=== PATIENT | female | born 1930 | race Caucasian/White ===

== ENCOUNTER → 2016-10-17 | Outpatient (CLI) | payer OTHER ==
[~2016-10-17] MED LIST: ALBU18002 INH; AMLO-110 PO; ATOR10TA88 PO; AZIT250T5 PO; CMD3 PO; LSN20 PO; PANT40TA PO; PRED20TA2 PO; TORS20TA2 PO; WARF3TAB6 PO
[2016-10-17 12:06] LABS: HEMATOCRIT 35.6 % (37-47); MEAN CELL VOLUME 81.5 fL (80-100); MEAN CORPUSCULAR HEMOGLOBIN 26.8 pg (25-34); MEAN CORPUSCULAR HGB CONC 32.9 g/dl (32-36); MEAN PLATELET VOLUME 10.1 fL (7.4-10.4); PLATELET COUNT 338 K/uL (130-400); RED BLOOD COUNT 4.37 M/uL (4.2-5.4); WHITE BLOOD COUNT 6.48 K/uL (4.8-10.8)
[2016-10-17 12:35] LABS: ALT/SGPT 19 U/L (12-78); AST/SGOT 17 U/L (15-37); BLOOD UREA NITROGEN 27 mg/dl (7-18); BUN/CREATININE RATIO 15.2 (10-20); CALCIUM 9.5 mg/dl (8.5-10.1); CARBON DIOXIDE 25 mmol/L (21-32); CHLORIDE 107 mmol/L (98-107); GLUCOSE 84 mg/dl (70-99); POTASSIUM 3.5 mmol/L (3.5-5.1); SODIUM 142 mmol/L (136-145)
[2016-10-17 12:36] LABS: ALB/GLOB RATIO 0.8 (0.9-2); ALKALINE PHOSPHATASE 95 U/L (45-117)
[2016-10-17 13:45] LABS: MANUAL MICROSCOPIC REQUIRED? NO; REVIEW REQ? NO; URINE APPEARANCE CLEAR (CLEAR); URINE BILIRUBIN NEG (NEG); URINE COLOR YELLOW; URINE NITRITE NEG (NEG); URINE SPECIFIC GRAVITY 1.016 (1.000-1.030); UROBILINOGEN NEG (NEG)
[2016-10-17 14:46] LABS: URINE PROTIEN/CREAT RATIO 0.5 (0-0.2); URINE TOTAL PROTEIN 87.3 mg/dl (0-11.9)
== END | disposition home or self-care (01) ==
LOC: C.LAB 10:58
PROVIDERS: ATTEND Internal Medicine Nephrology
DX: I12.9 Hypertensive chronic kidney disease with stage 1 through stage 4 chronic kidney disease, or unspecified chronic kidney disease (principal); N18.4 Chronic kidney disease, stage 4 (severe); R80.9 Proteinuria, unspecified; E55.9 Vitamin D deficiency, unspecified; I48.0 Paroxysmal atrial fibrillation; R73.09 Other abnormal glucose; Z79.01 Long term (current) use of anticoagulants

== ENCOUNTER → 2016-10-24 | Outpatient (CLI) | payer OTHER | END | disposition home or self-care (01) | LOC: C.LAB 10:49 | PROVIDERS: ATTEND Internal Medicine Nephrology | DX: I12.9 Hypertensive chronic kidney disease with stage 1 through stage 4 chronic kidney disease, or unspecified chronic kidney disease (principal); N18.4 Chronic kidney disease, stage 4 (severe); R80.9 Proteinuria, unspecified; E55.9 Vitamin D deficiency, unspecified ==

== ENCOUNTER → 2016-11-15 | Outpatient (CLI) | payer OTHER ==
--- NOTE | 2016-11-15 15:33 | DIAGNOSTIC IMAGING REPORT ---
CHEST 2 VIEWS ROUTINE CLINICAL HISTORY: Acute bronchitis with bronchospasm. Shortness of breath. COMPARISON STUDY: 05/29/2016 FINDINGS: The heart is mildly enlarged. There is a retrocardiac opacity consistent with a hiatal hernia. There is evidence for underlying emphysema. There is no lobar consolidation. There is a very small right pleural effusion with right basilar atelectasis. Aeration the lung bases has markedly improved when compared the preceding study[. There is extensive aortic calcification with ectasia of the ascending thoracic aorta IMPRESSION: Small right pleural effusion with minor right basilar atelectasis. Hiatal hernia. Electronically signed by: Hugo Mcgregor M.D. 11/15/2016 3:32 PM Dictated Date/Time: 11/15/2016 3:31 PM
== END | disposition home or self-care (01) ==
LOC: C.RADBC 12:25
PROVIDERS: ATTEND Physician Assistant
DX: J20.9 Acute bronchitis, unspecified (principal); R06.02 Shortness of breath; K44.9 Diaphragmatic hernia without obstruction or gangrene; I48.0 Paroxysmal atrial fibrillation; Z79.01 Long term (current) use of anticoagulants; R73.09 Other abnormal glucose; N18.4 Chronic kidney disease, stage 4 (severe)

== ENCOUNTER → 2016-11-19 | Outpatient (CLI) | payer OTHER ==
[2016-11-19 17:41] LABS: BASO % 0.4 %; BASO ABS # 0.03 K/uL (0-0.2); COMPLETE YES; EOS % 7.8 %; HEMATOCRIT 34.8 % (37-47); IG% 0.1 %; LYMPH % 23.8 %; MEAN CELL VOLUME 78.9 fL (80-100); MEAN CORPUSCULAR HEMOGLOBIN 25.6 pg (25-34); MEAN CORPUSCULAR HGB CONC 32.5 g/dl (32-36); MONO % 13.2 %; NEUT % 54.7 %; PLATELET COUNT 395 K/uL (130-400); RED BLOOD COUNT 4.41 M/uL (4.2-5.4); WHITE BLOOD COUNT 7.97 K/uL (4.8-10.8)
[2016-11-19 17:44] LABS: BLOOD UREA NITROGEN 31 mg/dl (7-18); BUN/CREATININE RATIO 14.3 (10-20); CARBON DIOXIDE 26 mmol/L (21-32); CHLORIDE 108 mmol/L (98-107); GLUCOSE 84 mg/dl (70-99); POTASSIUM 3.7 mmol/L (3.5-5.1); SODIUM 141 mmol/L (136-145)
== END | disposition home or self-care (01) ==
LOC: C.LABPBG 13:41
PROVIDERS: ATTEND Internal Medicine
DX: I10 Essential (primary) hypertension (principal)

== ENCOUNTER → 2016-11-22 | Outpatient (CLI) | payer OTHER ==
--- NOTE | 2016-11-22 11:50 | DIAGNOSTIC IMAGING REPORT ---
CT SCAN OF THE CHEST WITHOUT IV CONTRAST CLINICAL HISTORY: Dyspnea. COMPARISON STUDY: Chest x-ray dated 11/15/2016. TECHNIQUE: CT scan of the thorax was performed from the thoracic inlet to the upper abdomen. Images are reviewed in the axial, sagittal, and coronal planes. IV contrast was not administered for this examination as per the referring clinician. CT DOSE: 182.62 mGycm FINDINGS: Thyroid: Imaged portions of the thyroid gland are normal in size and attenuation. Thoracic aorta: There is advanced atherosclerotic calcification of the thoracic aorta. There is mild aneurysmal dilatation of the ascending thoracic aorta which measures up to 4.1 cm in diameter. The remainder of the thoracic aorta is normal in caliber. The arch demonstrates standard 3-vessel anatomy. Heart: The heart is enlarged and there is trace pericardial fluid. The coronary arteries are densely calcified. The pulmonary trunk is mild dilated, measuring 3.2 cm in transverse diameter. This suggests pulmonary artery hypertension. Lungs and pleural spaces: Mild emphysematous change is observed. There are trace pleural effusions. Linear atelectasis versus scarring is present at both lung bases. There is no airspace consolidation typical for pneumonia. The trachea and central airways are clear. Mediastinum: There is no mediastinal lymphadenopathy. Bree: Clear. Axillae: There is no axillary lymphadenopathy. Upper abdomen: There is a large hiatal hernia, with over half of the stomach located in the thoracic cavity. The partially imaged kidneys are atrophic, right asymmetrically greater than left. Calcified gallstones are partially visualized. Skeletal structures: The skeletal structures are osteopenic. There is a moderate compression deformity of T3. Mild compression deformities are noted involving T4, T6, T7, and T12. There is mild degenerative change and hyperkyphosis of the thoracic spine. No lytic or blastic bony lesions are seen. IMPRESSION: 1. Mild emphysema. 2. Trace pleural effusions. There is no airspace consolidation typical for pneumonia. 3. Cardiomegaly with evidence of pulmonary artery hypertension. 4. Large hiatal hernia with over half of the stomach located in the thoracic cavity. 5. There is advanced atherosclerotic calcification of the thoracic aorta. There is mild interstitial dilatation of the ascending thoracic aorta which measures up to 4.1 cm in diameter. 6. Cholelithiasis. 7. Additional findings as above. Electronically signed by: Fidencio Miller M.D. 11/22/2016 11:49 AM Dictated Date/Time: 11/22/2016 11:39 AM
== END | disposition home or self-care (01) ==
LOC: C.CTS 11:01
PROVIDERS: ATTEND Internal Medicine
DX: R06.00 Dyspnea, unspecified (principal); I51.7 Cardiomegaly; K44.9 Diaphragmatic hernia without obstruction or gangrene; I70.0 Atherosclerosis of aorta; K80.20 Calculus of gallbladder without cholecystitis without obstruction; I48.0 Paroxysmal atrial fibrillation; Z79.01 Long term (current) use of anticoagulants; R73.09 Other abnormal glucose; N18.4 Chronic kidney disease, stage 4 (severe); D64.9 Anemia, unspecified

== ENCOUNTER 2017-02-15 14:34 | Emergency (ER) | payer OTHER ==
[~2017-02-15] VITALS: Ht 154.9 cm; Wt 57.7 kg
[2017-02-15 14:43] VITALS: TEMP 36.6; Ht 154.9 cm; Wt 57.7 kg
[2017-02-15] MEDS ORDERED: METHYLPREDNISOLONE 125 MG VIAL IV STA (15:04)
--- NOTE | 2017-02-15 15:08 | EMERGENCY ROOM VISIT NOTE ---
History Report prepared by Tye: Ce Turk Under the Supervision of: Dr. Juanjo Lock M.D. First contact with patient: 14:48 Chief Complaint: SHORTNESS OF BREATH Stated Complaint: SOB, COUGH History of Present Illness The patient is a 86 year old female who presents to the Emergency Room with complaints of worsening shortness of breath beginning a few days prior to arrival. The patient states that the shortness of breath began 2 weeks ago however it has only worsened within the past few days. She notes trouble breathing. The patient has an inhaler that she uses at home every 4-6 hours as needed. She notes that she normally does not need the inhaler but last night and today she has been using it. The patient is currently on Warfarin. She has a history of chronic bronchitis, CHF, hiatal hernia and chronic kidney disease stage 4. Review of Systems See HPI for pertinent positives & negatives. A total of 10 systems reviewed and were otherwise negative. Past Medical & Surgical Medical Problems: (1) CHF (congestive heart failure) (2) Chronic bronchitis (3) kidney disease stage 4 Surgical Problems: (1) H/O: hysterectomy Family History Cancer Diabetes mellitus Heart disease Hypertension Kidney disease Social History Smoking Status: Never Smoker Smokeless Tobacco Use: No Alcohol Use: none Marital Status: Housing Status: lives with significant other Occupation Status: retired Current/Historical Medications Scheduled Amlodipine (Norvasc), 5 MG PO QAM Atorvastatin (Lipitor), 10 MG PO QPM Azithromycin (Zithromax), 250 MG PO DAILY Lisinopril (Lisinopril), 20 MG PO BID Prednisone (Prednisone Tab), 0 PO DAILY Torsemide (Demadex), 20 MG PO QAM Warfarin Sod (Jantoven), 3 MG PO 6XWK Warfarin Sod (Coumadin), 4.5 MG PO THURSDAYS Scheduled PRN Albuterol Sulfate (Proair Respiclick), 1-2 PUFFS INH 4-6 HOURS PRN for SOB/ Wheezing Pantoprazole (Protonix), 40 MG PO QAM PRN for Heartburn Allergies Coded Allergies: Aspirin (Verified Allergy, Unknown, 09/30/09) Penicillins (Verified Allergy, Unknown, 09/30/09) Physical Exam Vital Signs Date Time Temp Pulse Resp B/P (MAP) Pulse Ox O2 Delivery O2 Flow Rate FiO2 02/15/17 17:54 80 17 140/68 96 02/15/17 16:46 110 16 143/77 95 Room Air 02/15/17 16:04 96 Room Air 02/15/17 16:01 83 02/15/17 15:55 96 Room Air 02/15/17 15:25 100 20 96 Room Air 02/15/17 14:43 36.6 86 28 163/74 99 Room Air Physical Exam GENERAL: Patient is a healthy-appearing well-nourished female HEAD: Normocephalic atraumatic EYES: Ocular movements intact pupils equal and react to light OROPHARYNX mucous membranes are moist no exudates present no erythema or edema present NECK: Supple no nuchal rigidity CHEST: Good equal expansion LUNGS: Wheezing in all lung unger, appears extremely tachypneic CARDIAC: Normal S1 and S2 ABDOMEN: Soft nontender no guarding BACK: No CVA tenderness EXTREMITIES: No pain upon palpation normal muscle strength in all groups no clubbing cyanosis or edema NEURO: Patient is following commands and answering questions appropriately. Alert and oriented x3 Cranial Nerves 2-12 grossly intact Medical Decision & Procedures ER Provider Diagnostic Interpretation: X-ray results as stated below per interpretation by me and the radiologist: SINGLE VIEW CHEST CLINICAL HISTORY: Dyspnea. FINDINGS: An AP, portable, upright chest radiograph is compared to study dated 11/15/2016 and correlated with chest CT dated 11/22/2016. The examination is degraded by portable technique and patient rotation. The heart is enlarged and there is atherosclerotic calcification of the thoracic aorta. The pulmonary vasculature is noncongested. A large hiatal hernia is again noted. Chronic interstitial thickening is similar to previous. No airspace consolidation, large pleural effusion, or pneumothorax is seen. The skeletal structures are osteopenic. The bony thorax is grossly intact. IMPRESSION: Cardiomegaly with no acute cardiopulmonary abnormality. Electronically signed by: Fidencio Miller M.D. 02/15/2017 3:28 PM Dictated Date/Time: 02/15/2017 3:26 PM Laboratory Results 02/15/17 15:30 Red Blood Count 5.10, Mean Corpuscular Volume 75.5, Mean Corpuscular Hemoglobin 24.3, Mean Corpuscular Hemoglobin Concent 32.2, Mean Platelet Volume 9.9, Neutrophils (%) (Auto) 61.3, Lymphocytes (%) (Auto) 20.2, Monocytes (%) (Auto) 9.8, Eosinophils (%) (Auto) 8.1, Basophils (%) (Auto) 0.5, Neutrophils # (Auto) 4.46, Lymphocytes # (Auto) 1.47, Monocytes # (Auto) 0.71, Eosinophils # (Auto) 0.59, Basophils # (Auto) 0.04 02/15/17 15:30 Test 02/15/17 15:30 02/15/17 16:00 White Blood Count 7.28 K/uL (4.8-10.8) Red Blood Count 5.10 M/uL (4.2-5.4) Hemoglobin 12.4 g/dL (12.0-16.0) Hematocrit 38.5 % (37-47) Mean Corpuscular Volume 75.5 fL (80-100) Mean Corpuscular Hemoglobin 24.3 pg (25-34) Mean Corpuscular Hemoglobin Concent 32.2 g/dl (32-36) Platelet Count 336 K/uL (130-400) Mean Platelet Volume 9.9 fL (7.4-10.4) Neutrophils (%) (Auto) 61.3 % Lymphocytes (%) (Auto) 20.2 % Monocytes (%) (Auto) 9.8 % Eosinophils (%) (Auto) 8.1 % Basophils (%) (Auto) 0.5 % Neutrophils # (Auto) 4.46 K/uL (1.4-6.5) Lymphocytes # (Auto) 1.47 K/uL (1.2-3.4) Monocytes # (Auto) 0.71 K/uL (0.11-0.59) Eosinophils # (Auto) 0.59 K/uL (0-0.5) Basophils # (Auto) 0.04 K/uL (0-0.2) RDW Standard Deviation 48.4 fL (36.4-46.3) RDW Coefficient of Variation 17.3 % (11.5-14.5) Immature Granulocyte % (Auto) 0.1 % Immature Granulocyte # (Auto) 0.01 K/uL (0.00-0.02) Prothrombin Time 23.5 SECONDS (9.0-12.0) Prothromb Time International Ratio 2.1 (0.9-1.1) Anion Gap 12.0 mmol/L (3-11) Est Creatinine Clear Calc Drug Dose 17.0 ml/min Estimated GFR () 27.0 Estimated GFR (Non- 23.3 BUN/Creatinine Ratio 12.5 (10-20) Calcium Level 10.2 mg/dl (8.5-10.1) Magnesium Level 2.0 mg/dl (1.8-2.4) Total Bilirubin 0.6 mg/dl (0.2-1) Aspartate Amino Transf (AST/SGOT) 25 U/L (15-37) Alanine Aminotransferase (ALT/SGPT) 28 U/L (12-78) Alkaline Phosphatase 116 U/L (45-117) Total Creatine Kinase 76 U/L (26-192) Creatine Kinase MB 1.0 ng/ml (0.5-3.6) Creatine Kinase MB Ratio 1.3 (0-3.0) Troponin I < 0.015 ng/ml (0-0.045) Total Protein 7.8 gm/dl (6.4-8.2) Albumin 3.7 gm/dl (3.4-5.0) Globulin 4.1 gm/dl (2.5-4.0) Albumin/Globulin Ratio 0.9 (0.9-2) Urine Color YELLOW Urine Appearance CLEAR (CLEAR) Urine pH 5.0 (4.5-7.5) Urine Specific [place] 1.011 (1.000-1.030) Urine Protein TRACE (NEG) Urine Glucose (UA) NEG (NEG) Urine Ketones NEG (NEG) Urine Occult Blood NEG (NEG) Urine Nitrite NEG (NEG) Urine Bilirubin NEG (NEG) Urine Urobilinogen NEG (NEG) Urine Leukocyte Esterase NEG (NEG) Urine WBC (Auto) 1-5 /hpf (0-5) Urine RBC (Auto) 0-4 /hpf (0-4) Urine Hyaline Casts (Auto) 1-5 /lpf (0-5) Urine Epithelial Cells (Auto) 0-5 /lpf (0-5) Urine Bacteria (Auto) NEG (NEG) Labs reviewed by ED physician. Medications Administered Medications (Trade) Dose Ordered Sig/Jenny Route Start Time Stop Time Status Last Admin Dose Admin Albuterol/ Ipratropium (Duoneb) 12 ml ONE ONCE INH 02/15/17 15:15 02/15/17 15:16 DC 02/15/17 15:15 12 ML Methylprednisolone Sodium Succinate (Solu-Medrol IV) 60 mg NOW STAT IV 02/15/17 15:04 02/15/17 15:05 DC 02/15/17 15:54 60 MG Azithromycin (Zithromax Tab) 500 mg NOW STAT PO 02/15/17 15:41 02/15/17 15:42 DC 02/15/17 15:54 500 MG Magnesium Sulfate (Magnesium Sulfate) 1 gm NOW STAT IV 02/15/17 15:59 02/15/17 16:01 DC 02/15/17 16:36 1 GM Potassium Chloride (Neela Ciel Elix) 80 meq NOW STAT PO 02/15/17 15:59 02/15/17 16:01 DC 02/15/17 16:34 80 MEQ Sodium Chloride 500 ml @ 999 mls/hr Q31M STAT IV 02/15/17 16:54 02/15/17 17:24 DC 02/15/17 16:54 999 MLS/HR ECG Indication: SOB/dyspnea Rate (beats per minute): 98 Rhythm: atrial fibrillation Findings: no acute ischemic change, other (old septal infarct) ED Course 1501: Past medical records reviewed. The patient was evaluated in room B3. A complete history and physical examination was performed. 1504: Solu-Medrol Iv 60 mg IV. 1515: Duoneb 12 ml INH. 1541: Zithromax Tab 500 mg PO. 1559: Neela Ciel Elix 80 meq PO, Magnesium Sulfate 1 gm IV. 1656: Upon reexamination the patient is hemodynamically stable. I discussed results and treatment plan with the patient. She verbalizes agreement and understanding. The patient is ready for discharge. Medical Decision Differential diagnosis: Etiologies such as infections, reactive airway disease, pneumonia, pneumothorax , COPD, CHF, cardiac ischemia, pulmonary embolism, musculoskeletal, gastrointestinal, as well as others were entertained. Medication Reconciliation: I attest that I have personally reviewed the patient' s current medication list. Blood Pressure Screening: Patient was found to have an elevated blood pressure and was referred to their primary care doctor for recheck and further treatment This is an 86-year-old female who presents emergency department complaining of shortness of breath and wheezing. The patient was given an hour-long breathing treatment along with Solu-Medrol. Repeat examination revealed much improvement the patient's symptoms. The patient was also started on azithromycin. At this point the patient reported she was feeling much better and was requesting to be discharged. She was ambulated by nursing staff prior to discharge. I do believe she is well enough to be discharged home. She was started on prednisone. Patient was in agreement with the treatment plan. Impression Primary Impression: Acute bronchitis Scribe Attestation The scribe's documentation has been prepared under my direction and personally reviewed by me in its entirety. I confirm that the note above accurately reflects all work, treatment, procedures, and medical decision making performed by me. Departure Information Dispostion Home / Self-Care Prescriptions Prednisone (Prednisone Tab) 20 Mg Tab 0 PO DAILY, #7 TAB 2 TABS DAILY FOR 2 DAYS, THEN 1 TAB DAILY FOR 2 DAYS, THEN 1/2 TAB DAILY FOR 2 DAYS. Prov: Juanjo Lock MD 02/15/17 Azithromycin (ZITHROMAX) 250 Mg Tab 250 MG PO DAILY, #4 TAB Prov: Juanjo Lock MD 02/15/17 Referrals Chuck Byrne M.D. (PCP) Forms HOME CARE DOCUMENTATION FORM, IMPORTANT VISIT INFORMATION, School Instructions, Work Instructions Patient Instructions Bronchitis Acute, Hypertension Dc, My [facility] Additional Instructions Use inhaler twice every 6 hours You were found to have an elevated blood pressure today (>120 sytolic or >90 diastolic). Per medicare guidelines, you need to follow up with this blood pressure screening with your Primary Care Physician (PCP). For a new PCP call [phone]. You have been examined and treated today on an emergency basis only. This is not a substitute for, or an effort to provide, complete comprehensive medical care. It is impossible to recognize and treat all injuries or illnesses in a single emergency department visit. It is therefore important that you follow up closely with Dr Byrne. Call as soon as possible for an appointment. Thank you for your time and consideration. I look forward to speaking with you again soon. Please don't hesitate to call us if you have any questions. Problem Qualifiers Primary Impression: Acute bronchitis Bronchitis organism: unspecified organism Qualified Codes: J20.9 - Acute bronchitis, unspecified
[2017-02-15] MEDS ORDERED: ALBUT/IPRATROP 3MG/0.5MG NEB 3 ML VIAL INH ONE (15:15)
[2017-02-15] MEDS ORDERED: TORS20TA2 PO (15:22)
[2017-02-15] MEDS ORDERED: CMD3 PO (15:22)
[2017-02-15] MEDS ORDERED: ALBU18002 INH (15:22)
[2017-02-15] MEDS ORDERED: WARF3TAB6 PO (15:22)
[2017-02-15] MEDS ORDERED: AMLO-110 PO (15:22)
[2017-02-15] MEDS ORDERED: LSN20 PO (15:22)
[2017-02-15] MEDS ORDERED: PANT40TA PO (15:22)
[2017-02-15] MEDS ORDERED: ATOR10TA82 PO (15:22)
[2017-02-15 15:25] VITALS: PULSE 100; O2SAT 96
--- NOTE | 2017-02-15 15:30 | DIAGNOSTIC IMAGING REPORT ---
SINGLE VIEW CHEST CLINICAL HISTORY: Dyspnea. FINDINGS: An AP, portable, upright chest radiograph is compared to study dated 11/15/2016 and correlated with chest CT dated 11/22/2016. The examination is degraded by portable technique and patient rotation. The heart is enlarged and there is atherosclerotic calcification of the thoracic aorta. The pulmonary vasculature is noncongested. A large hiatal hernia is again noted. Chronic interstitial thickening is similar to previous. No airspace consolidation, large pleural effusion, or pneumothorax is seen. The skeletal structures are osteopenic. The bony thorax is grossly intact. IMPRESSION: Cardiomegaly with no acute cardiopulmonary abnormality. Electronically signed by: Fidencio Miller M.D. 02/15/2017 3:28 PM Dictated Date/Time: 02/15/2017 3:26 PM
[2017-02-15 15:39] LABS: BASO % 0.5 %; BASO ABS # 0.04 K/uL (0-0.2); COMPLETE YES; EOS % 8.1 %; HEMATOCRIT 38.5 % (37-47); IG% 0.1 %; LYMPH % 20.2 %; LYMPH ABS # 1.47 K/uL (1.2-3.4); MEAN CELL VOLUME 75.5 fL (80-100); MEAN CORPUSCULAR HEMOGLOBIN 24.3 pg (25-34); MEAN CORPUSCULAR HGB CONC 32.2 g/dl (32-36); MEAN PLATELET VOLUME 9.9 fL (7.4-10.4); MONO % 9.8 %; NEUT % 61.3 %; PLATELET COUNT 336 K/uL (130-400); WHITE BLOOD COUNT 7.28 K/uL (4.8-10.8)
[2017-02-15] MEDS ORDERED: AZITHROMYCIN 250 MG TAB PO STA (15:41)
[2017-02-15 15:44] LABS: INR 2.1 (0.9-1.1); PROTHROMBIN TIME (PATIENT) 23.5 SECONDS (9.0-12.0)
[2017-02-15 15:55] LABS: ALT/SGPT 28 U/L (12-78); BLOOD UREA NITROGEN 24 mg/dl (7-18); BUN/CREATININE RATIO 12.5 (10-20); CALCIUM 10.2 mg/dl (8.5-10.1); CARBON DIOXIDE 25 mmol/L (21-32); CHLORIDE 105 mmol/L (98-107); GLUCOSE 103 mg/dl (70-99); POTASSIUM 3.1 mmol/L (3.5-5.1); SODIUM 142 mmol/L (136-145)
[2017-02-15] MEDS ORDERED: POTASSIUM CHLORIDE 20 MEQ/15 ML UDC PO STA (15:59)
[2017-02-15] MEDS ORDERED: MAGNESIUM SULFATE 1GM / D5W 1 GM BAG IV STA (15:59)
[2017-02-15 16:00] LABS: ALB/GLOB RATIO 0.9 (0.9-2); ALKALINE PHOSPHATASE 116 U/L (45-117); AST/SGOT 25 U/L (15-37); CKMB/CK RATIO 1.3 (0-3.0)
[2017-02-15 16:04] VITALS: O2SAT 96
[2017-02-15 16:17] LABS: URINE APPEARANCE CLEAR (CLEAR); URINE BILIRUBIN NEG (NEG); URINE COLOR YELLOW; URINE EPITHELIAL CELL AUTO 0-5 /lpf (0-5); URINE NITRITE NEG (NEG); URINE SPECIFIC GRAVITY 1.011 (1.000-1.030); UROBILINOGEN NEG (NEG)
[2017-02-15 16:18] LABS: MANUAL MICROSCOPIC REQUIRED? NO; REVIEW REQ? NO
[2017-02-15] MEDS ORDERED: AZIT-60 PO (16:52)
[2017-02-15] MEDS ORDERED: PRED20TA2 PO (16:52)
[2017-02-15] MEDS ORDERED: SODIUM CHLORIDE 0.9% 500ML 500 ML IV STA (16:54)
[2017-02-15 17:54] VITALS: BP 140/68; PULSE 80; O2SAT 96
== END 2017-02-15 17:56 | disposition home or self-care (01) ==
LOC: C.EDB 14:35
DX: J20.9 Acute bronchitis, unspecified (principal); N18.4 Chronic kidney disease, stage 4 (severe); I50.9 Heart failure, unspecified; Z90.710 Acquired absence of both cervix and uterus; Z83.3 Family history of diabetes mellitus; Z82.49 Family history of ischemic heart disease and other diseases of the circulatory system; Z79.01 Long term (current) use of anticoagulants; Z79.899 Other long term (current) drug therapy

== ENCOUNTER → 2017-04-24 | Outpatient (CLI) | payer OTHER ==
[~2017-04-24] MED LIST changes: -AZIT250T5 PO
[2017-04-24 12:13] LABS: HEMATOCRIT 36.8 % (37-47); MEAN CELL VOLUME 77.3 fL (80-100); MEAN CORPUSCULAR HEMOGLOBIN 23.9 pg (25-34); MEAN PLATELET VOLUME 10.1 fL (7.4-10.4); PLATELET COUNT 335 K/uL (130-400); RED BLOOD COUNT 4.76 M/uL (4.2-5.4); WHITE BLOOD COUNT 5.53 K/uL (4.8-10.8)
[2017-04-24 17:58] LABS: BLOOD UREA NITROGEN 28 mg/dl (7-18); BUN/CREATININE RATIO 13.3 (10-20); CARBON DIOXIDE 24 mmol/L (21-32); CHLORIDE 109 mmol/L (98-107); GLUCOSE 141 mg/dl (70-99); POTASSIUM 3.8 mmol/L (3.5-5.1); SODIUM 142 mmol/L (136-145)
[2017-04-24 17:59] LABS: PHOSPHORUS 2.8 mg/dl (2.5-4.9)
== END | disposition home or self-care (01) ==
LOC: C.LABPBG 11:02
PROVIDERS: ATTEND Internal Medicine
DX: I12.9 Hypertensive chronic kidney disease with stage 1 through stage 4 chronic kidney disease, or unspecified chronic kidney disease (principal); N18.4 Chronic kidney disease, stage 4 (severe); R80.9 Proteinuria, unspecified; E55.9 Vitamin D deficiency, unspecified

== ENCOUNTER → 2017-05-02 | Outpatient (CLI) | payer OTHER ==
[2017-05-02 12:28] LABS: URINE APPEARANCE CLEAR (CLEAR); URINE BILIRUBIN NEG (NEG); URINE COLOR YELLOW; URINE EPITHELIAL CELL AUTO 0-5 /lpf (0-5); URINE NITRITE NEG (NEG); URINE SPECIFIC GRAVITY 1.012 (1.000-1.030); UROBILINOGEN NEG (NEG)
[2017-05-02 12:41] LABS: MANUAL MICROSCOPIC REQUIRED? NO; REVIEW REQ? NO
[2017-05-02 12:49] LABS: URINE TOTAL PROTEIN 13.5 mg/dl (0-11.9)
[2017-05-02 13:05] LABS: URINE PROTIEN/CREAT RATIO 0.6 (0-0.2)
== END | disposition home or self-care (01) ==
LOC: C.LABSPEC 10:41
PROVIDERS: ATTEND Internal Medicine Nephrology
DX: I10 Essential (primary) hypertension (principal); R80.9 Proteinuria, unspecified; N18.4 Chronic kidney disease, stage 4 (severe); E55.9 Vitamin D deficiency, unspecified; I48.0 Paroxysmal atrial fibrillation; Z79.01 Long term (current) use of anticoagulants; R73.09 Other abnormal glucose; D64.9 Anemia, unspecified

== ENCOUNTER 2017-07-12 11:14 | Emergency (ER) | payer OTHER ==
[~2017-07-12] VITALS: Ht 154.9 cm; Wt 59.8 kg
[~2017-07-12 11:14] MED LIST changes: +ATOR10TA82 PO; -ATOR10TA88 PO
[2017-07-12] MEDS ORDERED: METHYLPREDNISOLONE 125 MG VIAL IV STA (11:38)
[2017-07-12] MEDS ORDERED: SODIUM CHLORIDE 0.9% 1000ML 1,000 ML IV STA (11:38)
[2017-07-12] MEDS ORDERED: ALBUT/IPRATROP 3MG/0.5MG NEB 3 ML VIAL INH STA ×2 (11:38→13:03)
[2017-07-12 11:55] VITALS: Ht 154.9 cm; Wt 59.8 kg
--- NOTE | 2017-07-12 12:05 | DIAGNOSTIC IMAGING REPORT ---
CHEST ONE VIEW PORTABLE HISTORY: 86 years-old Female EVALUATE RESPIRATORY DISTRESS.DYSPNEA acute respiratory distress with dyspnea COMPARISON: Chest radiograph 02/15/2017, CT chest 11/22/2016 TECHNIQUE: Portable upright AP view of the chest FINDINGS: Cardiac silhouette is moderately enlarged, unchanged. There is atherosclerosis and tortuosity of the aorta. Moderate hiatal hernia is noted. There is no pneumothorax, pleural effusion or focal airspace consolidation. Chronic interstitial opacities are present bilaterally, notably within the perihilar distributions and lung bases which are unchanged. Lungs are mildly hyperinflated. The bones are grossly intact. It changes involve the shoulders and spine. IMPRESSION: 1. Cardiomegaly without acute cardiopulmonary process. 2. Moderate hiatal hernia. The above report was generated using voice recognition software. It may contain grammatical, syntax or spelling errors. Electronically signed by: Omar Valentine M.D. 07/12/2017 12:04 PM Dictated Date/Time: 07/12/2017 12:02 PM
[2017-07-12 12:20] LABS: BASO % 0.4 %; BASO ABS # 0.02 K/uL (0-0.2); COMPLETE YES; EOS % 1.4 %; HEMATOCRIT 36.4 % (37-47); IG% 0.2 %; LYMPH % 23.6 %; LYMPH ABS # 1.33 K/uL (1.2-3.4); MEAN CELL VOLUME 77.9 fL (80-100); MEAN CORPUSCULAR HEMOGLOBIN 25.7 pg (25-34); MEAN PLATELET VOLUME 9.9 fL (7.4-10.4); MONO % 19.9 %; NEUT % 54.5 %; PLATELET COUNT 254 K/uL (130-400); RED BLOOD COUNT 4.67 M/uL (4.2-5.4); WHITE BLOOD COUNT 5.63 K/uL (4.8-10.8)
[2017-07-12 12:28] LABS: ALT/SGPT 25 U/L (12-78); AST/SGOT 21 U/L (15-37); BLOOD UREA NITROGEN 29 mg/dl (7-18); BUN/CREATININE RATIO 15.2 (10-20); CALCIUM 9.6 mg/dl (8.5-10.1); CARBON DIOXIDE 24 mmol/L (21-32); CHLORIDE 108 mmol/L (98-107); CREATININE 1.88 mg/dl (0.60-1.20); GLUCOSE 91 mg/dl (70-99); POTASSIUM 3.4 mmol/L (3.5-5.1); SODIUM 141 mmol/L (136-145)
[2017-07-12 12:33] LABS: ALB/GLOB RATIO 0.8 (0.9-2); ALKALINE PHOSPHATASE 94 U/L (45-117); CKMB/CK RATIO 3.6 (0-3.0)
[2017-07-12] MEDS ORDERED: WARF3TAB PO (12:38)
[2017-07-12] MEDS ORDERED: SYMIN160 INH (12:38)
--- NOTE | 2017-07-12 13:00 | EMERGENCY ROOM VISIT NOTE ---
ED Visit Note First contact with patient: 11:25 The patient was seen and examined with Lion Pedersen PA-C. I agree with the history, physical and findings. Please see the note for disposition and details. The patient was wheezing. She was treated with steroids and breathing treatment. She notes a long history of bronchitis and wheezing, almost every year. She was treated and did very well with this. She is feeling much better. She will follow-up closely with her primary physician. If she worsens in any way she will be back.
[2017-07-12 13:39] LABS: URINE APPEARANCE CLEAR (CLEAR); URINE BILIRUBIN NEG (NEG); URINE COLOR YELLOW; URINE EPITHELIAL CELL AUTO 0-5 /lpf (0-5); URINE NITRITE NEG (NEG); URINE PH 5.5 (4.5-7.5); URINE SPECIFIC GRAVITY 1.013 (1.000-1.030); UROBILINOGEN NEG (NEG)
[2017-07-12 13:41] LABS: INR 2.5 (0.9-1.1); PARTIAL THROMBOPLASTIN RATIO 1.5; PROTHROMBIN TIME (PATIENT) 28.1 SECONDS (9.0-12.0)
[2017-07-12 13:50] LABS: MANUAL MICROSCOPIC REQUIRED? NO; REVIEW REQ? NO
[2017-07-12] MEDS ORDERED: PRED20TA2 PO (13:55)
[2017-07-12 14:28] VITALS: BP 132/86; PULSE 113; TEMP 36.7; O2SAT 94
--- NOTE | 2017-07-12 19:45 | EMERGENCY ROOM VISIT NOTE ---
ED Visit Note First contact with patient: 11:25 Chief Complaint: I'm feeling short of breath and I have a cough. History of Present Illness: Ms. Lozada is an 86-year-old white female who ambulates into the ED accompanied by a male friend complaining of cough, shortness of breath and wheezing. Historically patient reports she has a history of chronic bronchitis with her last exacerbation 4 months ago. She reports since that time she has been feeling well. Patient reports 3 days ago she started a mildly productive cough of clear sputum. Initially it was mildly gradually increased in intensity. She then reports she started feeling short of breath late last evening and hurt herself wheezing. Her shortness of breath and wheezing seems to increase with physical activity. She does report she used her inhaler the last time approximately 7 hours ago with minimal relief of her symptoms. Additionally she reports she's had a previous prescription for doxycycline from her last exacerbation which she started on Saturday but does not feel it has assisted her at all. Historically she reports she has chronic renal disease and she always has mild dependent edema and she does not feel this has increased. She denies fevers, chills, sweats, skin eruptions, skin color changes, upper respiratory tract symptoms, hemoptysis, chest pain/discomfort, palpitations, orthopnea, previous clots, claudication, cramping, recent surgery/inactivity/ extended travel, abdominal pain, nausea, vomiting. Review of Systems: As noted above in history of present illness. All body systems were reviewed and found to be negative as noted above. Past Medical History: As previously noted, chronic kidney disease, unspecified skin disorder, asthma Current Medications: Medications Dose Route/Sig Max Daily Dose Days Date Category Coumadin (Warfarin Sodium) 3 Mg Tab 3 Mg PO DAILY 07/12/17 Reported Symbicort 160/4.5 Inhaler (Budesonide/Formoterol Fumarate) Aero 2 Puffs INH BID 07/12/17 Reported Proair Respiclick (Albuterol Sulfate) 108 Mcg/Act Aer 1-2 Puffs INH 4-6 HOURS PRN 02/15/17 Reported Lipitor (Atorvastatin Calcium) 10 Mg Tab 10 Mg PO QPM 02/15/17 Reported Demadex (Torsemide) 20 Mg Tab 20 Mg PO PRN 02/15/17 Reported Protonix (Pantoprazole) 40 Mg Tab 40 Mg PO QAM 02/15/17 Reported Norvasc (Amlodipine Besylate) 5 Mg Tab 5 Mg PO QAM 02/15/17 Reported Lisinopril 20 Mg Tab 20 Mg PO BID 02/15/17 Reported Allergies to Medications: Aspirin, penicillin. Social History: Patient is not employed; she lives with her and feels safe in her home environment; she denies tobacco use. Physical Examination: Vital Signs: Date Time Temp Pulse Resp B/P (MAP) Pulse Ox O2 Delivery O2 Flow Rate FiO2 07/12/17 14:28 36.7 113 18 132/86 94 07/12/17 14:05 07/12/17 12:49 94 20 96 07/12/17 12:44 94 22 96 07/12/17 12:31 123/81 07/12/17 12:14 95 22 96 07/12/17 12:12 96 07/12/17 12:04 101/71 07/12/17 11:53 94 Room Air 07/12/17 11:18 36.7 91 20 151/73 94 Room Air GENERAL: 86-year-old female in mild respiratory distress with a mild increase in respiratory effort, nontoxic-appearing, afebrile and hemodynamically stable. NEUROLOGICAL: Awake, alert and oriented to person, place and time. Answering questions appropriately and following commands. Normal gait. SKIN: Warm, dry and pink. No soft tissue eruptions or trauma noted. HEENT: Atraumatic and normocephalic. PERRLA. Sclera white and conjunctiva pink. No drainage from naris. Oral cavity moist and pink. Pharynx is nonerythematous or edematous. Speech normal. No lymphadenopathy. Trachea midline. No jugular venous distention. BACK: No tenderness over the bony spine. No CVA tenderness. THORAX: Lungs sounds are decreased bilaterally in the bases with expiratory wheezing in the lower unger. Symmetrical chest wall. No rales or rhonchi. No crepitus, tenderness, subcutaneous air or deformities noted. Mild increase in respiratory effort. HEART: Irregular rate and rhythm. No gallops, rubs or murmurs are appreciated. ABDOMEN: Flat, soft and nontender. Positive bowel sounds in all quadrants. No guarding, rigidity or organomegaly. EXTREMITIES: Moves all extremities well on command and with purpose. All distal neurovascular statuses are intact and equal bilaterally. Mild bilateral dependent edema. No calf tenderness or cords. ED Course: Patient is assessed as noted above. Patient's medication list was reviewed. Laboratory Testing: Test 07/12/17 11:50 07/12/17 13:18 Range/Units White Blood Count 5.63 4.8-10.8 K/uL Red Blood Count 4.67 4.2-5.4 M/uL Hemoglobin 12.0 12.0-16.0 g/dL Hematocrit 36.4 37-47 % Mean Corpuscular Volume 77.9 80-100 fL Mean Corpuscular Hemoglobin 25.7 25-34 pg Mean Corpuscular Hemoglobin Concent 33.0 32-36 g/dl Platelet Count 254 130-400 K/uL Mean Platelet Volume 9.9 7.4-10.4 fL Neutrophils (%) (Auto) 54.5 % Lymphocytes (%) (Auto) 23.6 % Monocytes (%) (Auto) 19.9 % Eosinophils (%) (Auto) 1.4 % Basophils (%) (Auto) 0.4 % Neutrophils # (Auto) 3.07 1.4-6.5 K/uL Lymphocytes # (Auto) 1.33 1.2-3.4 K/uL Monocytes # (Auto) 1.12 0.11-0.59 K/uL Eosinophils # (Auto) 0.08 0-0.5 K/uL Basophils # (Auto) 0.02 0-0.2 K/uL RDW Standard Deviation 52.5 36.4-46.3 fL RDW Coefficient of Variation 18.3 11.5-14.5 % Immature Granulocyte % (Auto) 0.2 % Immature Granulocyte # (Auto) 0.01 0.00-0.02 K/uL Prothrombin Time 28.1 9.0-12.0 SECONDS Prothromb Time International Ratio 2.5 0.9-1.1 Activated Partial Thromboplast Time 39.9 21.0-31.0 SECONDS Partial Thromboplastin Ratio 1.5 Sodium Level 141 136-145 mmol/L Potassium Level 3.4 3.5-5.1 mmol/L Chloride Level 108 98-107 mmol/L Carbon Dioxide Level 24 21-32 mmol/L Anion Gap 9.0 3-11 mmol/L Blood Urea Nitrogen 29 7-18 mg/dl Creatinine 1.88 0.60-1.20 mg/dl Est Creatinine Clear Calc Drug Dose 17.5 ml/min Estimated GFR () 27.3 Estimated GFR (Non- 23.6 BUN/Creatinine Ratio 15.2 10-20 Random Glucose 91 70-99 mg/dl Calcium Level 9.6 8.5-10.1 mg/dl Total Bilirubin 0.5 0.2-1 mg/dl Aspartate Amino Transf (AST/SGOT) 21 15-37 U/L Alanine Aminotransferase (ALT/SGPT) 25 12-78 U/L Alkaline Phosphatase 94 45-117 U/L Total Creatine Kinase 83 26-192 U/L Creatine Kinase MB 3.0 0.5-3.6 ng/ml Creatine Kinase MB Ratio 3.6 0-3.0 Troponin I < 0.015 0-0.045 ng/ml Total Protein 7.2 6.4-8.2 gm/dl Albumin 3.2 3.4-5.0 gm/dl Globulin 4.0 2.5-4.0 gm/dl Albumin/Globulin Ratio 0.8 0.9-2 Urine Color YELLOW Urine Appearance CLEAR CLEAR Urine pH 5.5 4.5-7.5 Urine Specific [place] 1.013 1.000-1.030 Urine Protein 1+ NEG Urine Glucose (UA) NEG NEG Urine Ketones NEG NEG Urine Occult Blood NEG NEG Urine Nitrite NEG NEG Urine Bilirubin NEG NEG Urine Urobilinogen NEG NEG Urine Leukocyte Esterase NEG NEG Urine WBC (Auto) 0 0-5 /hpf Urine RBC (Auto) 0-4 0-4 /hpf Urine Hyaline Casts (Auto) 0 0-5 /lpf Urine Epithelial Cells (Auto) 0-5 0-5 /lpf Urine Bacteria (Auto) NEG NEG EKG: Was read by myself and reviewed with ; shows atrial fibrillation with a ventricular rate of [address] changes indicating ischemia, injury or infarction. This was compared to previous from January 2017 in no acute changes were noted. Chest X-Rays: Was read by myself and reviewed with ; shows no acute infiltrates, effusions or pneumothorax. Stable enlarged heart silhouette and moderate hiatal hernia. Patient was hydrated with normal saline and she received a total of 2 albuterol/ Atrovent nebulizer breathing treatments, 60 mg of prednisone IV for inflammation. Patient was reassessed multiple times during her stay in the emergency department; after her first breathing treatment she had improved air movement and decrease in wheezing but still had some wheezing on the right side of the chest. After her second breathing treatment I was not able to appreciate any wheezing and she had improved air movement. Patient was reassessed multiple times during her stay in the emergency department. Patient's case was reviewed with ; in apparently assessed the patient we agreed on diagnostic approach, treatment, disposition and plan. Patient were educated about today's findings and instructed on her treatment plan; they verbalized understanding and agreement with this plan. Clinical Impression: Acute bronchitis. Decision-Making: Initially my differential diagnosis I considered pneumonia, bronchitis, pneumothorax, pulmonary embolism, acute coronary syndrome, costochondritis and other causes. Disposition: Patient discharged home in stable condition accompanied by her ; prior to departure she was reassessed and subjectively reported she was feeling much better; she had resolution of chest discomfort and felt like she was breathing easier. Plan: Patient was encouraged to use 2 puffs of her albuterol inhaler every 4 hours for 5 days and as needed for shortness of breath/wheezing or significant coughing episodes. Patient was encouraged to continue her doxycycline as prescribed. Patient was placed on a prednisone taper. Patient was encouraged to follow-up with family physician for recheck in 2-3 days. Patient is encouraged return ED for worsening coughs, fevers, worsening shortness of breath/wheezing, coughing up blood or any new/concerning symptoms.
== END 2017-07-12 14:29 | disposition home or self-care (01) ==
LOC: C.EDB 11:17 → C.EDC 14:29
DX: J20.9 Acute bronchitis, unspecified (principal); N18.9 Chronic kidney disease, unspecified; Z79.01 Long term (current) use of anticoagulants; I48.91 Unspecified atrial fibrillation

== ENCOUNTER → 2017-10-16 | Outpatient (CLI) | payer OTHER ==
[~2017-10-16] MED LIST changes: -CMD3 PO; +SYMIN160 INH; +WARF3TAB PO; -WARF3TAB6 PO
[2017-10-16 12:47] LABS: HEMOGLOBIN 11.8 g/dL (12.0-16.0); MEAN CELL VOLUME 79.6 fL (80-100); MEAN CORPUSCULAR HEMOGLOBIN 25.4 pg (25-34); MEAN CORPUSCULAR HGB CONC 31.9 g/dl (32-36); PLATELET COUNT 345 K/uL (130-400); RED CELL DISTRIBUTION WIDTH CV 16.8 % (11.5-14.5); RED CELL DISTRIBUTION WIDTH SD 48.6 fL (36.4-46.3); WHITE BLOOD COUNT 5.88 K/uL (4.8-10.8)
[2017-10-16 13:40] LABS: BLOOD UREA NITROGEN 28 mg/dl (7-18); CALCIUM 9.9 mg/dl (8.5-10.1); CARBON DIOXIDE 22 mmol/L (21-32); CREATININE 2.28 mg/dl (0.60-1.20); GLUCOSE 191 mg/dl (70-99); PHOSPHORUS 2.9 mg/dl (2.5-4.9); POTASSIUM 3.7 mmol/L (3.5-5.1); SODIUM 139 mmol/L (136-145)
== END | disposition home or self-care (01) ==
LOC: C.LABPBG 10:15
PROVIDERS: ATTEND Internal Medicine Nephrology
DX: I12.9 Hypertensive chronic kidney disease with stage 1 through stage 4 chronic kidney disease, or unspecified chronic kidney disease (principal); N18.4 Chronic kidney disease, stage 4 (severe); R80.9 Proteinuria, unspecified; D64.9 Anemia, unspecified; R31.29 Other microscopic hematuria; E55.9 Vitamin D deficiency, unspecified

== ENCOUNTER 2018-10-19 08:44 | Inpatient (IN) ==
--- NOTE | 2018-10-19 09:31 | Emergency Department Note ---
ED Provider Note CHIEF COMPLAINT: Headache after head injury 3 weeks ago HISTORY OF PRESENT ILLNESS: Patient is an 88-year-old female who presents the emergency department accompanied by her and son for evaluation of a left occipital headache that started yesterday. Patient notes that it is a constant, aching pain that she rates a 0/10. She relates that she was running the vacuum about 3 weeks ago, stumbled backwards and fell, striking the left back of her head on the wall, notes that she did dent the drywall. There was no loss of consciousness or laceration, she was able to call for her son to help her up, but was able to get up on her own. The patient noted some soreness in her left leg and had to walk using a walker for a short time, but this has subsequently improved. She did not have any problems with headaches, lightheadedness, dizziness, nausea, vomiting, difficulty with balance, speech or coordination after the head injury. She states that she developed a mild headache yesterday. She did not take any medications, nor perform any interventions for her symptoms yesterday. She is on warfarin for a history of a PE and afib. Review of her old records show that her INR was 1.9 10 days ago. There is no change in her dose. She denies any neck pain. and son state that the patient has been her normal usual self for the last 3 weeks. REVIEW OF SYSTEMS: Review of systems as per HPI. All other systems reviewed were negative. 10 systems reviewed. PMH: Electronic medical records are reviewed and summarized as above/below. See Problem List. SOCIAL HISTORY: Patient lives at home with her first and son. Retired nurse. She does not smoke.. PHYSICAL EXAM: Vital Signs: Reviewed Nurse's notes. GCS: 15 CONSTITUTIONAL: Patient is a pleasant, well-appearing 88-year-old female who is awake and alert and in no acute distress. HEENT: Normocephalic, atraumatic. Pupils equal, round, reactive to light and accommodation. EOMs intact without nystagmus. Sclera are anicteric. Tympanic membranes intact, with normal landmarks. External canals are clear. No hemotympanum or Marquze sign. Oral and nasopharynx are clear. No CSF rhinorrhea. Mucous membranes are moist. NECK: Supple, nontender, no lymphadenopathy. Full range of motion. HEART: Irregular rate and rhythm. LUNGS: Breath sounds equal and clear to auscultation without wheezes, rales, or rhonchi heard. SKIN: No lesions or rash, normal skin turgor. EXTREMITIES: No cyanosis, edema, joint tenderness or swelling. No deformity. NEUROLOGICAL: Alert and oriented x4. Cranial nerves 2 through 12, sensation and strength grossly intact. Gait is normal. Slight resting tremor noted in the upper extremities bilaterally. ED course: The patient was seen and assessed as above. Old records were reviewed. She presents the emergency department for evaluation of a left occipital headache that started yesterday after sustaining a mechanical fall about 3 weeks ago. She is anticoagulated on Coumadin, INR was 1.9 10 days ago. Patient was reviewed with attending physician, Dr. Bustamante. Noncontrast CT scan of the head was obtained. I was notified by charge nurse regarding the CT report, noting a acute infarct in the left frontal lobe with left middle cerebral artery territory. Patient was immediately reassessed. Dr. Bustamante was made aware of the CT findings. He requested CTA of the head and neck be ordered. She and her family were made aware of the results of the CT findings. EKG was performed, patient was placed on a cardiac specialist and laboratory studies were collected. EKG noted in A. fib with a rate of 95 bpm. No acute ischemic changes. Laboratory studies revealed a normal white count at 9900. H&H is 15 and 44. Platelet count 282,000. INR today is 1.4. Electrolytes are without significant abnormality. BUN and creatinine elevated at 27 and 1.9, consistent with the patient's chronic kidney disease, and stable for her compared to old records. Liver functions are unremarkable. Troponin is negative for ischemia. Given her elevated creatinine, CT angiography could not be obtained. Laboratory studies and EKG were reviewed with Dr. Bustamante who also independently evaluated the patient. NIHSS Stroke Scale performed by nursing staff was noted to be 2. The patient remained stable and asymptomatic while awaiting the results of the remainder of her ED workup. As she could not have the additional CT scans, [facility] Patient was reviewed with Dr. Guillen who evaluated her in the emergency department and will admit her for further workup. Impression & Plan Acute cerebrovascular accident Past Med/Surg History Medical History Atrial fibrillation (Chronic) GERD (gastroesophageal reflux disease) (Chronic) Hypertension (Chronic) Dyslipidemia (Chronic) Chronic anticoagulation (Chronic) History of pulmonary embolism (Chronic) Chronic bronchitis (Chronic) CHF (congestive heart failure) (Chronic) Surgical History H/O: hysterectomy (Resolved) Family History Other HTN (hypertension) Social History Feels Safe at Home: Yes Smoking Status: Never smoker Results & Data Vital Signs Vital Signs - 24 hr 10/19/18 08:51 10/19/18 09:53 10/19/18 10:24 Temperature 36.9 C Temperature Source Oral Sepsis Recent Fever Within 48 Hours No Sepsis New/Unexplained Change in Mental Status No Sepsis Action Taken by Nursing No Action Required Pulse Rate 69 Pulse Rate [Apical] 102 H 108 H Pulse Rate [Left Finger] Pulse Rhythm [Apical] Irregular Irregular Pulse Strength Normal Pulse Strength [Apical] Normal Respiratory Rate 18 17 20 Respiratory Effort / Characteristics Non-Labored Spontaneous Non-Labored Non-Labored Respiratory Depth Normal Normal Normal Respiratory Pattern Regular Regular Blood Pressure 147/76 H Blood Pressure [Left Arm] Blood Pressure [Right Arm] 143/92 H 138/85 Blood Pressure Mean 99 Blood Pressure Mean [Left Arm] Blood Pressure Mean [Right Arm] 109 102 Blood Pressure Position Sitting Blood Pressure Position [Left Arm] Blood Pressure Position [Right Arm] Sitting Sitting Pulse Oximetry 95 96 96 Oxygen Delivery Method Room Air Room Air Room Air 10/19/18 11:13 10/19/18 12:23 10/19/18 13:17 Temperature Temperature Source Sepsis Recent Fever Within 48 Hours Sepsis New/Unexplained Change in Mental Status Sepsis Action Taken by Nursing Pulse Rate Pulse Rate [Apical] 113 H 87 90 Pulse Rate [Left Finger] Pulse Rhythm [Apical] Irregular Pulse Strength Pulse Strength [Apical] Respiratory Rate 24 22 18 Respiratory Effort / Characteristics Non-Labored Respiratory Depth Normal Respiratory Pattern Regular Blood Pressure Blood Pressure [Left Arm] Blood Pressure [Right Arm] 134/89 135/79 130/64 Blood Pressure Mean Blood Pressure Mean [Left Arm] Blood Pressure Mean [Right Arm] 104 97 86 Blood Pressure Position Blood Pressure Position [Left Arm] Blood Pressure Position [Right Arm] Sitting Pulse Oximetry 96 96 96 Oxygen Delivery Method Room Air Room Air Room Air 10/19/18 14:18 10/19/18 16:10 Temperature 37.4 C Temperature Source Oral Sepsis Recent Fever Within 48 Hours Sepsis New/Unexplained Change in Mental Status Sepsis Action Taken by Nursing Pulse Rate Pulse Rate [Apical] 89 Pulse Rate [Left Finger] 91 H Pulse Rhythm [Apical] Pulse Strength Pulse Strength [Apical] Respiratory Rate 23 Respiratory Effort / Characteristics Non-Labored Spontaneous Respiratory Depth Normal Respiratory Pattern Regular Blood Pressure Blood Pressure [Left Arm] 90/66 L Blood Pressure [Right Arm] 159/67 H Blood Pressure Mean Blood Pressure Mean [Left Arm] 74 Blood Pressure Mean [Right Arm] 97 Blood Pressure Position Blood Pressure Position [Left Arm] Sitting Blood Pressure Position [Right Arm] Pulse Oximetry 97 96 Oxygen Delivery Method Room Air Home Medications Current Medication List: was personally reviewed by me Laboratory Data Attestation: I reviewed the patient's lab results. Result diagrams: 10/19/18 10:05 10/19/18 10:05 Lab Results 10/19/18 10/19/18 10/19/18 Range/Units 10:05 10:05 10:05 WBC 9.94 (4.8-10.8) K/uL RBC 5.34 (4.2-5.4) M/uL Hgb 15.0 (12.0-16.0) g/dL Hct 44.4 (37-47) % MCV 83.1 (80-100) fL MCH 28.1 (25-34) pg MCHC 33.8 (32-36) g/dL RDW Std Deviation 46.7 H (36.4-46.3) fL RDW Coeff of Jennifer 15.5 H (11.5-14.5) % Plt Count 282 (130-400) K/uL MPV 9.9 (7.4-10.4) fL Immature Gran % (Auto) 0.2 % Neut % (Auto) 80.6 % Lymph % (Auto) 11.3 % [place] % (Auto) 7.5 % Eos % (Auto) 0.2 % Baso % (Auto) 0.2 % Immature Gran # (Auto) 0.02 (0.00-0.02) K/uL Neut # (Auto) 8.01 H (1.4-6.5) K/uL Lymph # (Auto) 1.12 L (1.2-3.4) K/uL [place] # (Auto) 0.75 H (0.11-0.59) K/uL Eos # (Auto) 0.02 (0-0.5) K/uL Baso # (Auto) 0.02 (0-0.2) K/uL PT Cancelled INR Cancelled APTT Cancelled PTT Ratio Cancelled Sodium 137 (136-145) mmol/L Potassium 4.1 (3.5-5.1) mmol/L Chloride 105 (98-107) mmol/L Carbon Dioxide 22 (21-32) mmol/L Anion Gap 10.0 (3-11) BUN 27 H (7-18) mg/dl Creatinine 1.90 H (0.6-1.2) mg/dl Est Cr Clr Drug Dosing 15.9 ml/min Est GFR ( Amer) 26.6 Est GFR (Non-Af Amer) 23.0 BUN/Creatinine Ratio 14.3 (10-20) Glucose 132 H (70-99) mg/dl Calcium 10.5 H (8.5-10.1) mg/dl Magnesium 1.8 (1.8-2.4) mg/dl Total Bilirubin 0.7 (0.2-1) mg/dl AST 16 (15-37) U/L ALT 21 (12-78) U/L Alkaline Phosphatase 116 (45-117) U/L Troponin I < 0.015 (0-0.045) ng/ml Total Protein 7.9 (6.4-8.2) gm/dl Albumin 3.5 (3.4-5.0) gm/dl Globulin 4.4 H (2.5-4.0) gm/dl Albumin/Globulin Ratio 0.8 L (0.9-2) 10/19/18 Range/Units 11:39 WBC (4.8-10.8) K/uL RBC (4.2-5.4) M/uL Hgb (12.0-16.0) g/dL Hct (37-47) % MCV (80-100) fL MCH (25-34) pg MCHC (32-36) g/dL RDW Std Deviation (36.4-46.3) fL RDW Coeff of Jennifer (11.5-14.5) % Plt Count (130-400) K/uL MPV (7.4-10.4) fL Immature Gran % (Auto) % Neut % (Auto) % Lymph % (Auto) % [place] % (Auto) % Eos % (Auto) % Baso % (Auto) % Immature Gran # (Auto) (0.00-0.02) K/uL Neut # (Auto) (1.4-6.5) K/uL Lymph # (Auto) (1.2-3.4) K/uL [place] # (Auto) (0.11-0.59) K/uL Eos # (Auto) (0-0.5) K/uL Baso # (Auto) (0-0.2) K/uL PT 13.6 H INR 1.4 H APTT 26.7 PTT Ratio 1.0 Sodium (136-145) mmol/L Potassium (3.5-5.1) mmol/L Chloride (98-107) mmol/L Carbon Dioxide (21-32) mmol/L Anion Gap (3-11) BUN (7-18) mg/dl Creatinine (0.6-1.2) mg/dl Est Cr Clr Drug Dosing ml/min Est GFR ( Amer) Est GFR (Non-Af Amer) BUN/Creatinine Ratio (10-20) Glucose (70-99) mg/dl Calcium (8.5-10.1) mg/dl Magnesium (1.8-2.4) mg/dl Total Bilirubin (0.2-1) mg/dl AST (15-37) U/L ALT (12-78) U/L Alkaline Phosphatase (45-117) U/L Troponin I (0-0.045) ng/ml Total Protein (6.4-8.2) gm/dl Albumin (3.4-5.0) gm/dl Globulin (2.5-4.0) gm/dl Albumin/Globulin Ratio (0.9-2) Imaging Data Attestation: I personally reviewed and interpreted this imaging study as follows : Radiologist's Impression: CT head/brain wo con CLINICAL HISTORY: 88 years-old Female presenting with FALL 3 WEEKS AGO, EVAL TRAUMA, ON COUMADIN, continued pain in the posterior head. TECHNIQUE: Multidetector CT imaging of the head was performed without the use of intravenous contrast. IV contrast: None. One or more dose lowering techniques were used consistent with the principles of ALARA (as low as reasonably achievable), including automatic exposure control, mA or kV adjustment to individual patient size, and/or use of iterative reconstruction. COMPARISON: None. CT DOSE (mGy.cm): The estimated cumulative dose is 537.48 mGy.cm. FINDINGS: Cardiology Technologist topogram: Unremarkable. Proportional ventricular and sulcal prominence, likely age-related parenchymal volume loss. No hemorrhage. Focal hypodensity involving the overlying alvarenga matter in the left frontal lobe. No mass effect or midline shift. No extra- axial fluid collection. Mucosal thickening in the left maxillary sinus. Debris in the external auditory canals likely cerumen. Calvarium intact. IMPRESSION: 1. Findings concerning for acute infarct in the left frontal lobe within the left middle cerebral artery territory. 2. No hemorrhage. The report will be called/faxed according to standard departmental protocol. ECG Data Attestation: I personally reviewed and interpreted this ECG as follows: Indication: other (acute CVA) Rate (beats per minute): 97 Rhythm: atrial fibrillation Findings: no acute ischemic change Change: no significant change Blood Pressure Blood Pressure Findings: Normal blood pressure Discharge Plan Visit Data *Final* Discharge Date/Time: 10/19/18 14:21 Chief Complaint: Fall Stated Complaint: FALL HIT HEAD 4WKS AGO ED Provider: Jossue Bustamante ED Midlevel Provider: Tyrone Barraza Discharge Problem: Acute cerebrovascular accident Patient Disposition: Admitted As Inpatient Discharge Instructions Interventions: ED Discharge Assessment Last Done: 10/19/18 14:21
--- NOTE | 2018-10-19 09:43 | CT Scan Report ---
CT head/brain wo con CLINICAL HISTORY: 88 years-old Female presenting with FALL 3 WEEKS AGO, EVAL TRAUMA, ON COUMADIN, con tinued pain in the posterior head. TECHNIQUE: Multidetector CT imaging of the head was performed without the use of intravenous contrast . IV contrast: None. One or more dose lowering techniques were used consistent with the principles of ALARA (as low as reasonably achievable), including automatic exposure control, mA or kV adjustment t o individual patient size, and/or use of iterative reconstruction. COMPARISON: None. CT DOSE (mGy.cm): The estimated cumulative dose is 537.48 mGy.cm. FINDINGS: Water Filtration Technician topogram: Unremarkable. Proportional ventricular and sulcal prominence, likely age-related parenchymal volume loss. No hemorr ren. Focal hypodensity involving the overlying alvarenga matter in the left frontal lobe. No mass effect or midline shift. No extra-axial fluid collection. Mucosal thickening in the left maxillary sinus. De bris in the external auditory canals likely cerumen. Calvarium intact. IMPRESSION: 1. Findings concerning for acute infarct in the left frontal lobe within the left middle cerebral ar felecia territory. 2. No hemorrhage. The report will be called/faxed according to standard departmental protocol. Electronically signed by: Chuck Grande M.D. 10/19/2018 9:42 AM
[2018-10-19 10:17] LABS: Basophils # (auto) 0.02 K/uL (0-0.2); Basophils % (auto) 0.2 %; Eosinophils # (auto) 0.02 K/uL (0-0.5); Eosinophils % (auto) 0.2 %; Hematocrit (blood only) 44.4 % (37-47); Immature Granulocytes # (auto) 0.02 K/uL (0.00-0.02); Immature Granulocytes % (auto) 0.2 %; Lymphocytes # (auto) 1.12 K/uL (1.2-3.4); Lymphocytes % (auto) 11.3 %; Mean Corpuscular Hgb Conc 33.8 g/dL (32-36); Mean Corpuscular Volume 83.1 fL (80-100); Mean Platelet Volume 9.9 fL (7.4-10.4); Monocytes # (auto) 0.75 K/uL (0.11-0.59); Monocytes % (auto) 7.5 %; Neutrophils # (auto) 8.01 K/uL (1.4-6.5); Neutrophils % (auto) 80.6 %; Platelet Count 282 K/uL (130-400); RDW Coefficient of Variation 15.5 % (11.5-14.5); RDW Standard Deviation 46.7 fL (36.4-46.3); Red Blood Count 5.34 M/uL (4.2-5.4); White Blood Count 9.94 K/uL (4.8-10.8)
[2018-10-19 10:35] LABS: Alanine Aminotransferase 21 U/L (12-78); Albumin Level 3.5 gm/dl (3.4-5.0); Aspartate Aminotransferase 16 U/L (15-37); BUN Creatinine Ratio 14.3 (10-20); Blood Urea Nitrogen 27 mg/dl (7-18); Calcium 10.5 mg/dl (8.5-10.1); Carbon Dioxide 22 mmol/L (21-32); Chloride 105 mmol/L (98-107); Creatinine Clr Calc Pharmacy 15.9 ml/min; Est GFR (African American) 26.6; Glucose 132 mg/dl (70-99); Magnesium 1.8 mg/dl (1.8-2.4); Potassium 4.1 mmol/L (3.5-5.1); Sodium 137 mmol/L (136-145)
[2018-10-19 10:40] LABS: Albumin Globulin Ratio 0.8 (0.9-2); Alkaline Phosphatase 116 U/L (45-117); Bilirubin,Total 0.7 mg/dl (0.2-1); Globulin 4.4 gm/dl (2.5-4.0); Total Protein 7.9 gm/dl (6.4-8.2); Troponin I < 0.015 ng/ml (0-0.045)
--- NOTE | 2018-10-19 11:50 | History & Physical Report ---
Date of Service October 19, 2018 Assessment & Plan (1) Acute ischemic left MCA stroke: presents with "word salad" words are clear, no delay in speech, understands directions, no neglect symptoms first started last night at dinner, maybe [address] head with evidence of ischemic stroke left frontal lobe, MCA distribution will admit to medical floor (no need for tele with chronic afib) will check echo since INR subtherapeutic, r/o cardiac thrombus check MRI brain and MRA head and neck lipid profile and HbA1c increase Lipitor to 40mg from 10mg start on Plavix 75mg daily today, has aspirin allergy consult neurology for recommendations PT/OT and speech therapy orders anticipate that she could go tomorrow depending on work up and recommendations (2) History of pulmonary embolism: INR 1.4, will need to give slightly higher dose of Coumadin today, 5mg (3) Chronic anticoagulation: again, INR 1.4, she did not take Coumadin today (4) Dyslipidemia: check lipid profile, increase Lipitor from 10mg to 40mg (5) Hypertension: BP 134/89 continue Norvasc and Lisinopril (6) GERD (gastroesophageal reflux disease): continue PPI (7) Atrial fibrillation: rates slightly elevated but patient does not take rate control medications may be due to stress continue to monitor, could consider starting low dose beta roman to replace Norvasc History of Present Illness Chief Complaint: I had a headache this morning Primary Care Provider: Chuck Byrne MD 88 yo female with history of chronic atrial fibrillation on Coumadin, HTN, dyslipidemia, and remote history of PE, presents to the ED today due to difficulty speaking and some confusion. The patient reports that she came to the ED because she had an occipital headache early this morning. She says that the headache wasn't too severe. She denies any dizziness or weakness or changes in vision. 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 Her says that it was a hard fall, head actually went through plaster. She did not have any pain, did not lose consciousness and had no further falls. 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 Her says that the real reason he brought her here this morning was that last night she started to act confused. He said that she was using inappropriate words when they were trying to decide what to eat for dinner. He said that they were both laughing because what she was saying didn't make any sense. They ate dinner and went to bed early. This morning she still had some confusion and "word salad." She never had any problem getting her words out and she was following directions clearly. She had no focal weakness, ambulated without difficulty, no dizziness. Her vision has been normal. She did not eat breakfast this morning or take her medications, her brought her here directly. In the ED her vitals and labs were stable. CT of the head showed an acute left frontal lobe stroke. No evidence of hematoma or hemorrhage. Asked to admit for stroke. She has no personal history of stroke. No family history of stroke or HI, she has a brother who is healthy. Allergies Allergy/AdvReac Type Severity Reaction Status Date / Time aspirin Allergy Unknown Verified 10/19/18 09:30 Penicillins Allergy Unknown Verified 10/19/18 09:30 Home Medications Home Medications Medication Instructions Recorded Confirmed Type albuterol sulfate [ProAir HFA] 2 puff INHALATION Q6H PRN 10/19/18 10/19/18 History amlodipine 5 mg PO DAILY 10/19/18 10/19/18 History atorvastatin 10 mg PO DAILY 10/19/18 10/19/18 History budesonide-formoterol [Symbicort] 2 puff INHALATION BID 10/19/18 10/19/18 History calcium carbonate [Calcium 500] 500 mg PO DAILY 10/19/18 10/19/18 History cholecalciferol (vitamin D3) 2,000 unit PO DAILY 10/19/18 10/19/18 History [Vitamin D3] lisinopril 20 mg PO BID 10/19/18 10/19/18 History pantoprazole 40 mg PO DAILY 10/19/18 10/19/18 History warfarin 3 mg PO UD 10/19/18 10/19/18 History Past Med/Surg History Medical History Atrial fibrillation (Chronic) GERD (gastroesophageal reflux disease) (Chronic) Hypertension (Chronic) Dyslipidemia (Chronic) Chronic anticoagulation (Chronic) History of pulmonary embolism (Chronic) Chronic bronchitis (Chronic) CHF (congestive heart failure) (Chronic) Surgical History H/O: hysterectomy (Resolved) Family History Other HTN (hypertension) Social History Feels Safe at Home: Yes Smoking Status: Never smoker Review of Systems All systems reviewed & are unremarkable except as noted in HPI & below Constitutional: no fever, no chills and no sweats Eyes: no diplopia and no worsening vision Respiratory: no cough and no dyspnea Cardiovascular: no chest pain, no palpitations, no syncope and no edema Gastrointestinal: + vomiting (she vomited a few times this morning, early, around 3am, none since); no abdominal pain, no nausea, no constipation and no diarrhea/loose stools Genitourinary (Female): no dysuria Neurologic: + abnormal speech (word salad) and + confusion Psychiatric: + confusion; no behavioral changes Physical Exam 2 Vital Signs (Past 24 Hours): Last Vital Signs Temp 36.9 C 10/19/18 08:51 Pulse 113 H 10/19/18 11:13 Resp 24 10/19/18 11:13 BP 134/89 10/19/18 11:13 Pulse Ox 96 10/19/18 11:13 Constitutional: WD/WN, vitals as above Eyes: PERRL, conjunctivae normal, anicteric sclerae ENMT: external ear and nose normal, oropharynx normal Neck: trachea midline, no thyromegaly Respiratory: normal respiratory effort, lungs clear to auscultation Cardiovascular: Rate/Rhythm: + tachycardic; + abnormal rhythm (irregular irregular) Heart Sounds: normal S1 and normal S2; no murmur Vessels: normal peripheral pulses; no JVD Extremities: no edema Gastrointestinal (Abdomen): normal bowel sounds, soft, nontender, no hepatosplenomegaly Musculoskeletal: no cyanosis or clubbing, extremities motor strength 5/5 Skin: no rashes, warm and dry Neurologic: patellar DTR's 2+ bilat, sensation intact and PERRL, EOMI, accommodation nl, no face palsy, no dysarthria Speech / Cognition: + abnormal speech (clear words, no delay in speech, however, using inappropriate words) Psychiatric: A+Ox3, euthymic affect Lymphatic: no cervical or axillary lymphadenopathy Results & Data Laboratory Results Laboratory Results - last 24 hr 10/19/18 10/19/18 10/19/18 10:05 10:05 10:05 WBC 9.94 RBC 5.34 Hgb 15.0 Hct 44.4 MCV 83.1 MCH 28.1 MCHC 33.8 RDW Std Deviation 46.7 H RDW Coeff of Jennifer 15.5 H Plt Count 282 MPV 9.9 Immature Gran % (Auto) 0.2 Neut % (Auto) 80.6 Lymph % (Auto) 11.3 [place] % (Auto) 7.5 Eos % (Auto) 0.2 Baso % (Auto) 0.2 Immature Gran # (Auto) 0.02 Neut # (Auto) 8.01 H Lymph # (Auto) 1.12 L [place] # (Auto) 0.75 H Eos # (Auto) 0.02 Baso # (Auto) 0.02 PT Cancelled INR Cancelled APTT Cancelled PTT Ratio Cancelled Sodium 137 Potassium 4.1 Chloride 105 Carbon Dioxide 22 Anion Gap 10.0 BUN 27 H Creatinine 1.90 H Est Cr Clr Drug Dosing 15.9 Est GFR ( Amer) 26.6 Est GFR (Non-Af Amer) 23.0 BUN/Creatinine Ratio 14.3 Glucose 132 H Calcium 10.5 H Magnesium 1.8 Total Bilirubin 0.7 AST 16 ALT 21 Alkaline Phosphatase 116 Troponin I < 0.015 Total Protein 7.9 Albumin 3.5 Globulin 4.4 H Albumin/Globulin Ratio 0.[address] HEAD IMPRESSION: 1. Findings concerning for acute infarct in the left frontal lobe within the left middle cerebral artery territory. 2. No hemorrhage. Code Status & VTE Plan Code Status full code VTE Prophylaxis Plan VTE Prophylaxis will be ordered: Yes
[2018-10-19 12:11] LABS: INR 1.4 (0.9-1.1); Partial Thromboplastin Time 26.7 Seconds (21.0-31.0); Prothrombin Time 13.6 Seconds (9.0-12.0)
--- NOTE | 2018-10-19 12:11 | Emergency Department Note ---
ED Visit Note The patient was seen and examined with yanni. I agree with the history, physical and findings. Please see the note for disposition and details.
[2018-10-19] MEDS ORDERED: PHARMACIST DISCHARGE MED REC CONSULT PRN (14:32)
[2018-10-19] MEDS ORDERED: ONDANSETRON INJ 2 MG/ML 2 ML VIAL IV PRN (14:32)
[2018-10-19] MEDS ORDERED: ALBUTEROL HFA INHALER 8.5 GM INH PRN (14:32)
[2018-10-19] MEDS ORDERED: ACETAMINOPHEN 325 MG TAB PO PRN (14:32)
[2018-10-19] MEDS ORDERED: CLOPIDOGREL BISULFATE 75 MG TAB PO ONE (14:32)
[2018-10-19] MEDS ORDERED: POLYETHYLENE (MIRALAX) 17 GM PACK PO PRN (14:32)
--- NOTE | 2018-10-19 15:35 | Magnetic Resonance Report ---
MR angio head wo con CLINICAL HISTORY: 88 years-old Female presenting with fall 3 weeks ago, stroke last night, memory los s and headaches. TECHNIQUE: MR angiography of the head was performed without the use of intravenous contrast using 3-D [id number] technique. 3-D volumetric and/or maximum intensity projection (MIP) images were subse quently reconstructed for review. IV contrast: None. COMPARISON: Noncontrast CT head from earlier today. FINDINGS: Localizer images: Unremarkable. Anterior circulation: Intracranial portions of the internal carotid arteries patent to the level of t he termini. Anterior cerebral arteries patent. Middle cerebral arteries patent. Anterior communicatin g artery patent. Posterior circulation: Left dominant vertebral artery. Intradural portions of the vertebral arteries patent. Posterior inferior cerebellar arteries patent. Basilar artery patent. Anterior inferior cereb ellar arteries poorly visualized. Superior cerebellar arteries patent. Posterior cerebral arteries pa tent.Posterior communicating arteries hypoplastic or aplastic. IMPRESSION: 1. No significant stenosis, aneurysm, or focal vessel occlusion. Electronically signed by: Chuck Grande M.D. 10/19/2018 3:33 PM
--- NOTE | 2018-10-19 15:46 | Magnetic Resonance Report ---
MR brain wo con CLINICAL HISTORY: 88 years-old Female presenting with stroke, history of fall 3 weeks ago, possible s troke last night, memory loss and headaches. TECHNIQUE: Multisequence, multiplanar MR imaging of the brain was performed without the use of intrav enous contrast. IV contrast: None. COMPARISON: Noncontrast CT head from earlier today. FINDINGS: Localizer images: Unremarkable. Proportional ventricular and sulcal prominence, likely age-related parenchymal volume loss. Periventr icular and subcortical white matter T2/FLAIR hyperintensity, nonspecific but likely indicative of chr onic small vessel ischemic change. Postcontrast imaging was not performed. No mass effect or midline shift. Restricted diffusion in a limited portion of the left frontal lobe. Associated T2/FLAIR hyperintensity and sulcal effacement in this region. No extra-axial fluid collect ion. T2 skull base flow voids preserved. Bone marrow signal intensity within the calvarium within normal l imits. Mucosal thickening in paranasal sinuses. IMPRESSION: 1. Acute infarct in the limited portion of the left frontal lobe in the left MCA distribution. This is at least 6-12 hours old. No hemorrhage. Electronically signed by: Chuck Grande M.D. 10/19/2018 3:44 PM
[2018-10-19] MEDS ORDERED: WARFARIN SOD 5 MG TAB PO SCH (16:00)
[2018-10-19] MEDS: BUDESONIDE/FORMOTEROL FUMARATE 160/4.5 60 PUFFS/INHALER INH SCH (20:38)
[2018-10-19] MEDS: LISINOPRIL 20 MG TAB PO SCH (20:38)
[2018-10-20 06:00] LABS: Basophils # (auto) 0.02 K/uL (0-0.2); Basophils % (auto) 0.4 %; Eosinophils % (auto) 1.8 %; Hematocrit (blood only) 39.6 % (37-47); Hemoglobin 13.2 g/dL (12.0-16.0); Lymphocytes # (auto) 1.71 K/uL (1.2-3.4); Lymphocytes % (auto) 30.1 %; Mean Corpuscular Hgb Conc 33.3 g/dL (32-36); Mean Corpuscular Volume 82.2 fL (80-100); Mean Platelet Volume 10.1 fL (7.4-10.4); Monocytes # (auto) 0.88 K/uL (0.11-0.59); Monocytes % (auto) 15.5 %; Neutrophils # (auto) 2.98 K/uL (1.4-6.5); Neutrophils % (auto) 52.2 %; Platelet Count 272 K/uL (130-400); RDW Coefficient of Variation 15.4 % (11.5-14.5); RDW Standard Deviation 46.4 fL (36.4-46.3); Red Blood Count 4.82 M/uL (4.2-5.4); White Blood Count 5.69 K/uL (4.8-10.8)
[2018-10-20 06:16] LABS: INR 1.6 (0.9-1.1); Prothrombin Time 15.5 Seconds (9.0-12.0)
[2018-10-20 06:34] LABS: BUN Creatinine Ratio 13.7 (10-20); Calcium 9.4 mg/dl (8.5-10.1); Creatinine Clr Calc Pharmacy 15.5 ml/min; Est GFR (Non-African American) 22.4; Potassium 3.6 mmol/L (3.5-5.1)
[2018-10-20 06:37] LABS: Estimated Average Glucose 143 mg/dl; Hemoglobin A1C 6.6 % (4.5-5.6)
[2018-10-20 08:07] VITALS: PULSE 90; TEMP 97.9; O2SAT 95
[2018-10-20] MEDS: BUDESONIDE/FORMOTEROL FUMARATE 160/4.5 60 PUFFS/INHALER INH SCH (08:18)
[2018-10-20] MEDS: LISINOPRIL 20 MG TAB PO SCH (08:26)
[2018-10-20] MEDS ORDERED: CHOLECALCIFEROL 1,000 UNITS TAB PO SCH (09:00)
[2018-10-20] MEDS ORDERED: PANTOprazole 40 MG TAB PO SCH (09:00)
[2018-10-20] MEDS ORDERED: ATORVASTATIN 40 MG TAB PO SCH (09:00)
[2018-10-20] MEDS ORDERED: CLOPIDOGREL BISULFATE 75 MG TAB PO SCH (09:00)
[2018-10-20] MEDS ORDERED: AMLODIPINE BESYLATE 5 MG TAB PO SCH (09:00)
[2018-10-20] MEDS ORDERED: CALCIUM CARBONATE 1250MG TAB PO SCH (09:00)
--- NOTE | 2018-10-20 09:52 | Neurology Consultation ---
Date of Consultation October 20, 2018 Assessment & Plan (1) Acute ischemic left MCA stroke: This is a 88-year-old right-handed female who presents with an acute subacute left frontal ischemic stroke. Likely cardioembolic due to A. fib with subtherapeutic INR. Patient does report that she tends to have trouble keeping her INR therapeutic in the past. Residual neurological deficits include mixed aphasia. Stroke risk factors include A. fib, dyslipidemia, and hypertension. Recommendations: I have ordered US carotids to compleat stroke work up to rule out large vessel critical stenosis No need for plavix from a stroke prevention standpoint (Anticoagulation plus antiplatelets do not significantly improve stroke prevention out comes and do have increase risk of bleeding). Recommend consider switching Coumadin to one of the newer agents like xarelto or pradaxa to avoid sub therapeutic levels that could put her at risk for stoke. BP is low today. Consider decreasing BP meds. Follow-up PT/OT and speech therapies for discharge planning. Blood pressure recommendations while in hospital 175/95-150/80 (MAPS 90-110) Avoid hypotension and dehydration Stroke risk factor modifications and recommendations: Blood pressure recommendations for the first month post hospital discharge 150/ 90-130/80, and after that blood pressure recommendations 130/80-110/70 Total cholesterol goal 100- 200 and LDL goal less than 100 Hemoglobin A1c goal less than 7 Encourage cardiovascular exercise at least 3 times a week for 30 minutes. Follow-up in neurology clinic in 1 month for post stroke hospital follow-up. If there is any questions or concerns, feel free to call/page me. History of Present Illness Reason for Consultation: Consultation for stroke Attending Physician: Selwyn Guillen DO History of Present Illness This is a 88-year-old right-handed female who presents for evaluation due to confusion and changes in speech. Patient does report having a trip and fall a few weeks ago with left occipital headaches that seem to be unrelated. The night before presentation her noted that she was having word finding problems and wrong word substitutions at dinner. When they woke up the next morning she was still having difficulty and so he took her to the emergency room for evaluation. Patient notes that she is still having trouble with speech. Denies any other neurological symptoms. Headache is easily relieved with [id number] Tylenol. Labs were reviewed and creatinine noted to be 1.9. Total cholesterol 138, LDL 58, HDL 66, triglycerides 72, hemoglobin A1c 6.6 MRI of the brain report and images reviewed by myself. Has a acute to subacute left frontal ischemic stroke. MRA of the head was unremarkable Echocardiogram was unremarkable Patient's blood pressure was noted to be on the lower side this morning. Patient appears to be asymptomatic. Past medical history significant for A. fib with subtherapeutic and INR Dyslipidemia, hypertension, GERD, history of PE Family history of hypertension, mother with cancer, father with intracranial bleed Social history: Patient is normally independent her activities of daily living. No tobacco or alcohol use. Allergies Allergy/AdvReac Type Severity Reaction Status Date / Time aspirin Allergy Unknown Verified 10/19/18 09:30 Penicillins Allergy Unknown Verified 10/19/18 09:30 Home Medications Home Medications Medication Instructions Recorded Confirmed Type albuterol sulfate [ProAir HFA] 2 puff INHALATION Q6H PRN 10/19/18 10/19/18 History budesonide-formoterol 2 puff INHALATION BID 10/19/18 10/19/18 History calcium carbonate [Calcium 500] 500 mg PO DAILY 10/19/18 10/19/18 History cholecalciferol (vitamin D3) 2,000 unit PO DAILY 10/19/18 10/19/18 History [Vitamin D3] pantoprazole 40 mg PO DAILY 10/19/18 10/19/18 History apixaban [Eliquis] 2.5 mg PO Q12H #60 tab 10/20/18 Rx atorvastatin 40 mg PO DAILY 30 Days #30 tab 10/20/18 Rx Patient History Medical History Atrial fibrillation (Chronic) GERD (gastroesophageal reflux disease) (Chronic) Hypertension (Chronic) Dyslipidemia (Chronic) Chronic anticoagulation (Chronic) History of pulmonary embolism (Chronic) Chronic bronchitis (Chronic) CHF (congestive heart failure) (Chronic) Surgical History H/O: hysterectomy (Resolved) Family History Other HTN (hypertension) Social History Current Living Situation: Family Other Information That Helps Us Care for You: No Feels Safe at Home: Yes Safety Concerns: Feels Safe At This Time Smoking Status: Never smoker Hx Alcohol Use: No Hx Substance Use: No Communication Ability: Effective Review of Systems Complete review of systems otherwise negative except for the above-noted in HPI Physical Exam 2 Vital Signs (Past 24 Hours): Last Vital Signs Temp 36.6 C 10/20/18 08:06 Pulse 90 10/20/18 08:06 Resp 16 10/20/18 08:06 BP 90/63 L 10/20/18 08:06 Pulse Ox 95 10/20/18 08:06 Physical Exam: Gen.: Patient is alert and oriented in no acute distress sitting on the side of the bed Heart: Irregular rate and rhythm Extremities: No gross deformities or rashes noted Neurological examination: Mental status: Patient is alert and oriented to person. Unable to give me correct year. She is aware that she is in the hospital. Able to give some of her own subjective history but appears to have some trouble with short-term memory. Difficult to assess fund of knowledge due to speech deficits. Attention concentration normal for the situation. Remote memory likely intact Speech did not have any dysarthria. Noted to have some mixed receptive and expressive aphasia with word finding and sometimes wrong word substitution. Sometimes did not correctly follow commands correctly. Cranial nerves: Visual unger intact to confrontation. Funduscopic examination was difficult to visualize. Pupils equally round and reactive to light. Extraocular muscles intact without nystagmus. No facial asymmetry noted. Facial sensation intact. Tongue midline. Good palatal elevation. Good shoulder shrug bilaterally. Hearing grossly intact voice. Strength: 5/5 both proximal and distal in all extremities .Tone is normal. Sensation: Grossly intact to light touch in all extremities Deep tendon reflexes: +1 in bilateral biceps and patellar. Coordination: Patient has good finger to nose without dysmetria. Gait appeared stable with no signs of ataxia.
[2018-10-20] MEDS ORDERED: STROKE PATIENT DISCHARGE STA (12:54)
[2018-10-20 13:00] VITALS: BP 159/67
--- NOTE | 2018-10-20 13:59 | Pharmacy Report ---
Pharmacist Stroke Counseling - Date of Service October 20, 2018 - Scope: Pharmacy has been consulted to provide medication discharge counseling for this patient admitted with transient ischemic attack as per the Pharmacist Discharge Counseling for Stroke Patients Protocol. - Medications on Discharge: Home Medications Medication Instructions Recorded Confirmed albuterol sulfate [ProAir HFA] 2 puff INHALATION Q6H PRN 10/19/18 10/19/18 budesonide-formoterol 2 puff INHALATION BID 10/19/18 10/19/18 calcium carbonate [Calcium 500] 500 mg PO DAILY 10/19/18 10/19/18 cholecalciferol (vitamin D3) 2,000 unit PO DAILY 10/19/18 10/19/18 [Vitamin D3] pantoprazole 40 mg PO DAILY 10/19/18 10/19/18 New Rx's Medication Instructions Recorded apixaban [Eliquis] 2.5 mg PO Q12H #60 tab 10/20/18 atorvastatin 40 mg PO DAILY 30 Days #30 tab 10/20/18 - Action: The above medications, specifically ones for stroke treatment/prophylaxis, have been reviewed in detail with the patient and/or patient retail representative(s) prior to discharge. This includes indication, common adverse reactions, drug interactions, and medication administration. Medication counseling has been employed using the teach-back method to ensure understanding. - Outcome: The patient and/or patient retail representative(s) have demonstrated understanding of the medications. Please note, they are aware that the pharmacist will call them within 72 hours post-discharge to confirm that the appropriate medications are being taken and answer any further medication related questions the patient might have at that time. Contact information Individual to be contacted: Susie Lozada Relationship to patient (if applicable): n/a Phone number: [phone] Best time to call: 05-12 Additional comments: Spoke with Ms. Lozada, , ?son bedside. I spoke extensively re: the KATALINA, dosing, cases where doses are missed, drug-drug interactions with rx/OTC supps and others for her eliquis 2.5mg BID and increased lipitor 40mg QD. Thank you for allowing pharmacy to be involved in the care of this patient. Please call [phone] or [phone] with any additional questions
--- NOTE | 2018-10-20 16:13 | Ultrasound Report ---
US carotid doppler BI CLINICAL HISTORY: 88 years-old Female presenting with stroke, history of atherosclerosis. TECHNIQUE: Real-time grayscale and color and spectral Doppler ultrasound imaging of the bilateral car otid arteries was performed. Stenosis measurements were based on NASCET-like criteria (distal lumen d iameter as the denominator for stenosis measurement). COMPARISON: 09/18/2013. FINDINGS: RIGHT: Subclavian artery: Atherosclerosis with focal narrowing and resultant aliasing on color Doppler due t o turbulent flow. Peak systolic velocity (PSV) 326 cm/s. By comparison, normal PSV in the brachioceph alic artery, which measures 69 cm/s. Common carotid artery (CCA): Atherosclerosis at the carotid bulb. PSV 49 cm/s. Internal carotid artery (ICA): Atherosclerosis of the proximal ICA. PSV 69 cm/s. End diastolic veloci ty (EDV) 4 cm/s. ICA/CCA (systolic) ratio: 1.4. External carotid artery (ECA): Patent. PSV 60 cm/s. LEFT: Subclavian artery: Patent. Antegrade and retrograde flow evident, with diastolic flow below the basel ine. PSV 151 cm/s. CCA: Atherosclerosis at the carotid bulb. PSV 71 cm/s. ICA: Atherosclerosis of the proximal ICA. PSV 60 cm/s. EDV 5 cm/s. ICA/CCA (systolic) ratio: 0.9. ECA: Patent. PSV 93 cm/s. Bilateral antegrade flow within the vertebral arteries. Blood pressure: Brachial: Right: 142/59 mmHg, Left: 111/68 mmHg. Reference ranges: Stenosis measurements are compared to reference velocity parameters by the Society of Radiologists in Ultrasound (SRU) consensus and Sonographic NASCET index (S-NASCET). * SRU Primary parameters: ICA PSV <125 cm/s = normal or less than 50% stenosis; ICA PSV 125-230 cm/s = 50-69% stenosis; ICA PSV >230 cm/s = greater than or equal to 70% stenosis. * SRU Additional parameters: ICA/CCA PSV ratio <2 = normal or less than 50% stenosis; ratio 2-4 = 5 0-69% stenosis; ratio >4 = greater than or equal to 70% stenosis. ICA EDV <40 cm/s = normal or less t little 50% stenosis; ICA EDV 40-100 cm/s = 50-69% stenosis; ICA EDV >100 cm/s = greater than or equal to 70% stenosis. * S-NASCET parameters: Deceleration spectral broadening + PSV <125 cm/s = less than 50% stenosis; pa nsystolic spectral broadening + PSV <125 cm/s = 16-49% stenosis; pansystolic spectral broadening + PS V >125 cm/s + EDV <110 cm/s or ICA/CCA PSV ratio 2-4 = 50-69% stenosis; pansystolic spectral broadeni ng + PSV >270 cm/s OR EDV >110 cm/s OR ICA/CCA PSV ratio >4 = 70-79% stenosis; EDV >140 cm/s = 80-99% stenosis. IMPRESSION: 1. 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 2. Reversal of diastolic flow in the left subclavian artery raises concern for aortic valve regurgit ation. Consider echocardiogram. 3. Atherosclerosis without hemodynamically significant stenosis seen within the carotid arteries. Electronically signed by: Chuck Grande M.D. 10/20/2018 4:12 PM
--- NOTE | 2018-10-20 22:29 | Discharge Summary ---
Date of Service October 20, 2018 Admission HPI Per Admitting Provider 88 yo female with history of chronic atrial fibrillation on Coumadin, HTN, dyslipidemia, and remote history of PE, presents to the ED today due to difficulty speaking and some confusion. The patient reports that she came to the ED because she had an occipital headache early this morning. She says that the headache wasn't too severe. She denies any dizziness or weakness or changes in vision. 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 Her says that it was a hard fall, head actually went through plaster. She did not have any pain, did not lose consciousness and had no further falls. 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 Her says that the real reason he brought her here this morning was that last night she started to act confused. He said that she was using inappropriate words when they were trying to decide what to eat for dinner. He said that they were both laughing because what she was saying didn't make any sense. They ate dinner and went to bed early. This morning she still had some confusion and "word salad." She never had any problem getting her words out and she was following directions clearly. She had no focal weakness, ambulated without difficulty, no dizziness. Her vision has been normal. She did not eat breakfast this morning or take her medications, her brought her here directly. In the ED her vitals and labs were stable. CT of the head showed an acute left frontal lobe stroke. No evidence of hematoma or hemorrhage. Asked to admit for stroke. She has no personal history of stroke. No family history of stroke or [place], she has a brother who is healthy. Admission Exam Per Admitting Provider Constitutional: WD/WN, vitals as above Eyes: PERRL, conjunctivae normal, anicteric sclerae ENMT: external ear and nose normal, oropharynx normal Neck: trachea midline, no thyromegaly Respiratory: normal respiratory effort, lungs clear to auscultation Cardiovascular: Rate/Rhythm: + tachycardic; + abnormal rhythm (irregular irregular) Heart Sounds: normal S1 and normal S2; no murmur Vessels: normal peripheral pulses; no JVD Extremities: no edema Gastrointestinal (Abdomen): normal bowel sounds, soft, nontender, no hepatosplenomegaly Musculoskeletal: no cyanosis or clubbing, extremities motor strength 5/5 Skin: no rashes, warm and dry Neurologic: patellar DTR's 2+ bilat, sensation intact and PERRL, EOMI, accommodation nl, no face palsy, no dysarthria Speech / Cognition: + abnormal speech (clear words, no delay in speech, however, using inappropriate words) Psychiatric: A+Ox3, euthymic affect Lymphatic: no cervical or axillary lymphadenopathy Principal Diagnosis Acute ischemic stroke, left MCA territory, likely embolic Discharge Exam Constitutional WD/WN, vitals as above Eyes PERRL, conjunctivae normal, anicteric sclerae ENMT external ear and nose normal, oropharynx normal Neck trachea midline, no thyromegaly Respiratory normal respiratory effort, lungs clear to auscultation Cardiovascular Rate/Rhythm: regular rate; + abnormal rhythm (irregular irregular) Heart Sounds: normal S1 and normal S2; no murmur Vessels: normal peripheral pulses; no JVD Extremities: no edema Gastrointestinal (Abdomen) normal bowel sounds, soft, nontender, no hepatosplenomegaly Musculoskeletal no cyanosis or clubbing, extremities motor strength 5/5 Skin no rashes, warm and dry Neurologic patellar DTR's 2+ bilat, sensation intact and PERRL, EOMI, accommodation nl, no face palsy, no dysarthria Speech / Cognition: + abnormal speech (clear words, much improved, says if she has to think about something it is then difficult to speak) Psychiatric A+Ox3, euthymic affect Lymphatic no cervical or axillary lymphadenopathy Discharge Data Allergies Allergy/AdvReac Type Severity Reaction Status Date / Time aspirin Allergy Unknown Verified 10/19/18 09:30 Penicillins Allergy Unknown Verified 10/19/18 09:30 Consultations 10/19/18 11:22 ED Decision to Admit Stat 10/19/18 14:32 Consult Case Management - Discharge Planning Routine Consult Neurology Routine Ordered Studies 10/19/18 09:16 CT head/brain wo con Stat 10/19/18 14:32 MR angio head wo con Urgent MR brain wo con Routine 10/20/18 09:42 US carotid doppler BI Routine Hospital Course (1) Acute ischemic left MCA stroke: presents with "word salad" words are clear, no delay in speech, understands directions, no neglect CT head with evidence of ischemic stroke left frontal lobe, MCA distribution MRI brain shows acute ischemic stroke in left frontal lobe, MCA distribution MRA without any vessel abnormalities Echo normal carotid doppler without significant stenosis appreciate neurology consult, stroke attributed to embolic stroke from afib since INR 1.4 recommend changing Coumadin to Eliquis, patient agrees to the change, start Eliquis 2.5mg BID no need for antiplatelet therapy, Plavix stopped hold BP medications since BP low normal, 90's systolic, see below Lipitor increased to 40mg d/c to home with PCP and neurology follow up (2) History of pulmonary embolism: INR 1.4 on admission change to Eliquis 2.5mg BID (3) Chronic anticoagulation: again, INR 1.4 on admission likely lead to embolic stroke change to Eliquis (4) Dyslipidemia: LDL 58 and HDL 66, increase Lipitor from 10mg to 40mg (5) Hypertension: BP 134/89 on admission continued Norvasc and Lisinopril today BP running low normal, 90's systolic, too low for acute stroke hold both Norvasc and Lisinopril BP check in the office in one week, defer to Dr. Byrne which medication to resume (6) GERD (gastroesophageal reflux disease): continue PPI (7) Atrial fibrillation: rates slightly elevated but patient does not take rate control medications may be due to stress rates normal today (8) CKD (chronic kidney disease), stage IV: Cr at baseline, making adequate urine Total Time Total Time Spent Total Time Spent (In Minutes): 45 minutes Total Time Includes: Examination of the Patient, Discharge Planning, Medication Reconciliation and Communication With Other Providers (Dr. Doty) Discharge Plan Discharge Items Patient Disposition: Home - Self-Care Reason For Visit: ACUTE ISCHEMIC STROKE Discharge Diagnosis: Acute ischemic stroke, likely embolic atrial fibrillation low normal blood pressure Condition: Good Discharge Goals: Improve disease control, Improve function and Specific goals Specific Goals: follow with speech therapy Activity: Resume your previous activity Non-emergency contact: Primary Care Provider and Neurologist Call non-emergency contact if: you have any medication questions, your symptoms worsen and you have a fever Follow-up/Referrals: Chuck Byrne MD [Primary Care Provider] - 10/27/18 11:00 am (Please, follow up with Dr. Chuck Byrne in the [facility] [facility] on SaturdayOctober 27 at 11:00 am. *If you need to change this appointment, call the office at [phone].) Diet: Heart Healthy Addtl Provider Instructions: Medications: - ELIQUIS: new medication for anticoagulation, take twice a day starting this evening - LIPITOR: dose increased from 10mg to 40mg due to stroke, better protection against future stroke - COUMADIN: stop this medication, replaced by Eliquis - AMLODIPINE: stop this medication, blood pressure low normal, too low actually with acute stroke - LISINOPRIL: stop this medication, again, blood pressure too low with acute stroke Acute ischemic stroke, likely cardioembolic from low INR small ischemic stroke in the left MCA region, demonstrated on MRI brain seen by Dr. Doty with neurology she recommends changing Coumadin to Eliquis for more consistent anticoagulation and better stroke prevention no need for antiplatelet therapy at this time blood pressure too low for acute stroke, need to hold blood pressure medications, see below Lipitor increased to 40mg from 10mg for better stroke prevention Hypertension: blood pressure too low, actually borderline hypotensive will stop Norvasc and stop Lisinopril short term recommend close follow up with Dr. Byrne's office by the end of the week for blood pressure check likely can resume one of those medications, likely the Lisinopril, but will defer to Dr. Byrne FOLLOW UP - Dr. Byrne by the end of the week for hospital follow up and blood pressure check Prescriptions: New atorvastatin 40 mg Tablet 40 mg PO DAILY 30 Days Qty: 30 RF: 0 apixaban [Eliquis] 2.5 mg tablet 2.5 mg PO Q12H Qty: 60 RF: 3 Continue calcium carbonate [Calcium 500] 500 mg calcium (1,250 mg) Tablet 500 mg PO DAILY RF: 0 pantoprazole 40 mg tablet,delayed release (DR/EC) 40 mg PO DAILY RF: 0 albuterol sulfate [ProAir HFA] 90 mcg/actuation Hfa Aerosol Inhaler 2 puff INHALATION Q6H PRN (Reason: Shortness Of Breath) RF: 0 cholecalciferol (vitamin D3) [Vitamin D3] 1,000 unit Capsule 2,000 unit PO DAILY RF: 0 budesonide-formoterol 160-4.5 mcg/actuation HFA aerosol inhaler 2 puff Inhalation BID RF: 0 Discontinued atorvastatin 10 mg tablet 10 mg PO DAILY RF: 0 lisinopril 20 mg tablet 20 mg PO BID RF: 0 amlodipine 5 mg tablet 5 mg PO DAILY RF: 0 warfarin 3 mg tablet 3 mg PO UD RF: 0 Stand-Alone Forms: [facility] Discharge Orders: Discharge Order (Routine); Ordered 10/20/18 Ordered By: Selwyn Guillen Admission Data Admit Date/Time: 10/19/18 11:49 Attending Provider: Selwyn Guillen Admit Provider: Selwyn Guillen Primary Care Provider: Chuck Byrne Other Providers: Selwyn Guillen ; Don Quinn III Service: Medical Other Interventions: Discharge Summary Assessment (RN) Last Done: 10/20/18 12:59 DC Date/Time DO NOT enter until pt leaves facility: 10/20/18 16:50
== END 2018-10-20 16:50 | disposition home or self-care (01) | DRG 65 ==
LOC: ED 08:44 → 4W 11:49

== ENCOUNTER 2018-11-30 18:00 | Inpatient (IN) ==
[2018-11-30] MEDS ORDERED: LABETALOL HCL IV 5 MG/ML 20ML IV PRN (18:23)
[2018-11-30] MEDS ORDERED: ONDANSETRON INJ 2 MG/ML 2 ML VIAL IV STA (18:37)
[2018-11-30 18:41] LABS: Basophils # (auto) 0.02 K/uL (0-0.2); Basophils % (auto) 0.3 %; Eosinophils # (auto) 0.04 K/uL (0-0.5); Eosinophils % (auto) 0.6 %; Hematocrit (blood only) 45.2 % (37-47); Immature Granulocytes # (auto) 0.01 K/uL (0.00-0.02); Immature Granulocytes % (auto) 0.1 %; Lymphocytes # (auto) 1.07 K/uL (1.2-3.4); Lymphocytes % (auto) 15.1 %; Mean Corpuscular Hgb Conc 33.2 g/dL (32-36); Mean Corpuscular Volume 85.1 fL (80-100); Monocytes # (auto) 0.66 K/uL (0.11-0.59); Monocytes % (auto) 9.3 %; Neutrophils # (auto) 5.28 K/uL (1.4-6.5); Neutrophils % (auto) 74.6 %; Platelet Count 273 K/uL (130-400); RDW Coefficient of Variation 17.1 % (11.5-14.5); RDW Standard Deviation 53.2 fL (36.4-46.3); Red Blood Count 5.31 M/uL (4.2-5.4); White Blood Count 7.08 K/uL (4.8-10.8)
--- NOTE | 2018-11-30 18:42 | XRay Report ---
XR chest 1V portable CLINICAL HISTORY: 88 years-old Female presenting with Pt c/o AMS. TECHNIQUE: Portable upright AP view of the chest was obtained. COMPARISON: 07/12/2017. FINDINGS: Atherosclerosis of the aortic arch. Cardiac silhouette enlarged. Exaggerated thoracic kyphosis suspec zaida. Bandlike opacity at the right lung base unchanged. Coarsened lung markings. No new focal opacity though there is decreased aeration of the lung bases in comparison to prior. No large effusion or pn eumothorax. Calcified granulomata may be present. Osteopenia. Upper abdomen normal. IMPRESSION: 1. Cardiomegaly. No vince pulmonary edema or congestive change. 2. Right basilar atelectasis. 3. Decreased aeration of the lung bases. Electronically signed by: Chuck Grande M.D. 11/30/2018 6:40 PM
[2018-11-30 18:52] LABS: iSTAT Hemoglobin 16.3 g/dl (12.0-16.0); iSTAT Ionized Calcium 1.38 mmol/l (1.12-1.32)
[2018-11-30 18:53] LABS: INR 1.1 (0.9-1.1); Partial Thromboplastin Ratio 0.9; Partial Thromboplastin Time 24.8 Seconds (21.0-31.0); Prothrombin Time 11.2 Seconds (9.0-12.0)
[2018-11-30] MEDS ORDERED: OPTIRAY 320 125ml IV PRN (19:04)
--- NOTE | 2018-11-30 19:11 | CT Scan Report ---
CT head/brain wo con CLINICAL HISTORY: 88 years-old Female presenting with Stroke evaluation, confusion, history of recent stroke, altered mental status. TECHNIQUE: Multidetector CT imaging of the head was performed without the use of intravenous contrast . IV contrast: None. One or more dose lowering techniques were used consistent with the principles of ALARA (as low as reasonably achievable), including automatic exposure control, mA or kV adjustment t o individual patient size, and/or use of iterative reconstruction. COMPARISON: 11/06/2018. CT DOSE (mGy.cm): The estimated cumulative dose is 4.02. FINDINGS: Systems Manager topogram: Unremarkable. Proportional ventricular and sulcal prominence, likely age-related parenchymal volume loss. No hemorr ren. Involving now subacute to chronic left frontal cortical infarct. No acute territorial infarct. No mass effect or midline shift. No extra-axial fluid collection. Paranasal sinuses and mastoid air c ells clear. Calvarium intact. Soft tissue in the external auditory canals likely cerumen. IMPRESSION: 1. No acute intracranial abnormality. 2. Evolving subacute to chronic left frontal infarct. Electronically signed by: Chuck Grande M.D. 11/30/2018 7:09 PM
[2018-11-30 19:12] LABS: Albumin Level 3.9 gm/dl (3.4-5.0); BUN Creatinine Ratio 10.8 (10-20); Calcium 10.9 mg/dl (8.5-10.1); Creatinine Clr Calc Pharmacy 15.2 ml/min; Est GFR (African American) 25.3; Est GFR (Non-African American) 21.9; Magnesium 1.7 mg/dl (1.8-2.4); Potassium 3.4 mmol/L (3.5-5.1)
[2018-11-30 19:17] LABS: Bilirubin,Total 1.1 mg/dl (0.2-1); Creatine Kinase MB 1.9 ng/ml (0.5-3.6); Globulin 3.9 gm/dl (2.5-4.0); Total Protein 7.8 gm/dl (6.4-8.2); Troponin I 0.017 ng/ml (0-0.045)
--- NOTE | 2018-11-30 19:18 | CT Scan Report ---
CT abd pelvis IV con only CLINICAL HISTORY: 88 years-old Female presenting with Pt c/o emesis, confusion, recent stroke, altere d mental status. TECHNIQUE: Multidetector CT of the abdomen and pelvis was performed after the administration of intra venous contrast. IV contrast: 120 mL of Optiray 320. One or more dose lowering techniques were used c onsistent with the principles of ALARA (as low as reasonably achievable), including automatic exposur e control, mA or kV adjustment to individual patient size, and/or use of iterative reconstruction. COMPARISON: None. CT DOSE (mGy.cm): The estimated cumulative dose is 2074.02 mGy.cm. FINDINGS: Otr [employer] Driver topogram: Unremarkable. Lung bases: Multichamber enlargement of the heart. Coronary artery, aortic valve, and mitral annular calcification. Small bilateral pleural effusions, which may be loculated on the right. Prominent band like opacities at the lung bases likely extensive atelectasis. Mosaic attenuation and interlobular se ptal thickening. Liver: Normal morphology. Vague hypodensity along the fissure for the ligamentum teres, likely perfus ional variation or focal fat. Patent hepatic vasculature. Biliary: No intrahepatic or extrahepatic biliary ductal dilatation. Gallstones noted at the fundus in tensely also with adenomyomatosis. Pancreas: Moderate parenchymal atrophy. Spleen: Normal. Adrenal glands: Normal. Kidneys and ureters: Right greater than left renal atrophy, which is severe on the right. Urothelial thickening evident, right greater than left. No hydronephrosis or nephrolithiasis. Ureters nondistend ed. Bladder: Incompletely evaluated secondary to underdistention. Pelvic organs: Uterus surgically absent. No adnexal masses. Bowel: Diverticulosis of the mid to distal sigmoid colon without wall thickening or pericolonic infla mmatory change. No bowel obstruction. Distal small bowel is significantly decompressed. The appendix is not confidently visualized though no inflammatory changes are noted in the region of the cecum. Mo derate hiatal hernia, which appears to be a sliding-type. Peritoneal cavity: No free fluid or intraperitoneal gas. Lymph nodes: No enlarged lymph nodes in the abdomen or pelvis. Vasculature: Dense atherosclerotic calcified plaque throughout the abdominal aorta and its major bran ch vessels. The abdominal aorta is normal in caliber although tortuous. IVC patent. Abdominal wall: Normal. Musculoskeletal: Degenerative changes of the spine. Chronic fracture of the left inferior pubic ramus . Osteopenia suspected. IMPRESSION: 1. No acute intra-abdominal pathology. 2. Chronic findings as above, most notably severe right renal atrophy, cholelithiasis, diverticulosi s coli, and moderate hiatal hernia. 3. Extensive bibasilar atelectasis and congestive change at the lung bases. Developing pulmonary jackelyn ma not excluded. 4. Chronic fracture of the left inferior pubic ramus. Electronically signed by: Chuck Grande M.D. 11/30/2018 7:16 PM
--- NOTE | 2018-11-30 19:24 | CT Scan Report ---
CT angio neck with con CLINICAL HISTORY: 88 years-old Female presenting with Pt c/o AMS, recent stroke, confusion. TECHNIQUE: Multidetector CT angiography of the neck was performed after the administration of intrave nous contrast. 3-D volumetric and/or maximum intensity projection (MIP) images were subsequently francisco nstructed for review. IV contrast: 120 mL of Optiray 320. One or more dose lowering techniques were u sed consistent with the principles of ALARA (as low as reasonably achievable), including automatic ex posure control, mA or kV adjustment to individual patient size, and/or use of iterative reconstructio n. Stenosis measurements were based on NASCET-like criteria (distal lumen diameter as the denominator for stenosis measurement). COMPARISON: Carotid Doppler ultrasound from 2013. CT DOSE (mGy.cm): The estimated cumulative dose is 2073.02. FINDINGS: Optometrist/Practice Owner topogram: Unremarkable. Aortic arch: Significant calcified and noncalcified atherosclerotic plaque of the three-vessel aortic arch with patent origins of the branch vessels. Innominate artery: The origin of the innominate is not included within the [id number]. Atheroscler otic plaque of the otherwise patent visualized portion of the innominate. Right subclavian artery: Extensive tortuosity and irregularity of the right subclavian artery with at herosclerotic plaque. Right common carotid artery: Mild calcified atherosclerotic plaque throughout the common carotid. Right internal and external carotid arteries: Calcified and noncalcified atherosclerotic plaque at th e carotid bifurcation. No significant stenosis results. The remainder of the right internal carotid a rtery is widely patent as is the external carotid artery beyond its proximal 1 cm. Left common carotid artery: Mild calcified and noncalcified atherosclerotic plaque. Left internal and external carotid arteries: Plaque at the carotid bifurcation does not result in sig nificant stenosis. Tortuosity of the proximal left ICA. Left ECA widely patent. Left subclavian artery: Significant atherosclerotic plaque and kinking of the proximal left subclavia n artery resulting in 50% luminal stenosis. Vertebral arteries: Left dominant vertebral artery. Origins and courses of the bilateral vertebral ar teries patent. Other: Limited intracranial evaluation within normal limits. Soft tissues of the neck normal allowing for the phase of contrast. Degenerative changes of the cervical spine. Interlobular septal thickenin g and mosaic attenuation of the lung apices. IMPRESSION: 1. Significant atherosclerotic plaque burden including noncalcified atherosclerotic plaque. However, no significant stenosis of the cervical arteries. 2. The most significant site of stenosis is at the origin and proximal portion of the left subclavia n artery with up to 50% stenosis. This is largely due to kinking. Electronically signed by: Chuck Grande M.D. 11/30/2018 7:23 PM
[2018-11-30 19:28] LABS: Appearance Urine Clear (Clear); Bacteria Urine Automated Negative (Negative); Bilirubin Urine Negative (Negative); Color Urine Yellow; Glucose Urine UA Trace (Negative); Ketones Urine Trace (Negative); Leukocyte Esterase Urine Negative (Negative); Nitrite Urine Negative (Negative); Protein Urine 3+ (Negative); Specific Gravity Urine 1.043 (1.000-1.030); Urobilinogen Urine Negative (Negative); pH Urine 6.5 (4.5-7.5)
--- NOTE | 2018-11-30 19:35 | CT Scan Report ---
CT angio head w con CLINICAL HISTORY: 88 years-old Female presenting with Pt c/o AMS. TECHNIQUE: Multidetector CT angiography of the head was performed after the administration of intrave nous contrast. 3-D volumetric and/or maximum intensity projection (MIP) images were subsequently francisco nstructed for review. IV contrast: 120 mL of Optiray 320. One or more dose lowering techniques were u sed consistent with the principles of ALARA (as low as reasonably achievable), including automatic ex posure control, mA or kV adjustment to individual patient size, and/or use of iterative reconstructio n. COMPARISON: CT head performed the same day. CT DOSE (mGy.cm): The estimated cumulative dose is 2074.02. FINDINGS: Giving Officer topogram: Unremarkable. Anterior circulation: Atherosclerosis of the cavernous segments of the internal carotid arteries. Int racranial portions of the internal carotid arteries patent to the level of the termini. Anterior cere bral arteries patent. Middle cerebral arteries patent. Anterior communicating artery patent. Posterior circulation: Left dominant vertebral artery. Intradural portions of the vertebral arteries patent. Posterior inferior cerebellar arteries patent. Mild irregularity of the basilar artery likely related to atherosclerotic disease. Anterior inferior cerebellar arteries poorly visualized. Superio r cerebellar arteries patent. Posterior cerebral arteries patent, although there is significant irreg ularity of the P2 segment of the left RECORDS ANALYSIS MANAGER. Posterior communicating arteries hypoplastic or aplastic. Dural venous sinuses: Patent. Other: Allowing for the phase of contrast, brain parenchyma within normal limits. Calvarium intact. IMPRESSION: 1. Significant irregularity of the P2 segment of the left RECORDS ANALYSIS MANAGER may relate to atherosclerotic disease, which is seen elsewhere to a lesser degree. No evidence of aneurysm or focal vessel occlusion. Electronically signed by: Chuck Grande M.D. 11/30/2018 7:34 PM
[2018-11-30] MEDS ORDERED: cefTRIAXone SODIUM 1,000 MG/50 ML BAG IV STA (19:48)
[2018-11-30] MEDS ORDERED: LORazepam 0.5 MG/1 ML VIAL IV STA (20:45)
--- NOTE | 2018-11-30 20:46 | History & Physical Report ---
Date of Service November 30, 2018 Assessment & Plan (1) Hypertensive urgency: The patient is unable to take oral medications at this time. Place on Lopressor 5 mg IV every 4 hours with hold parameters. Imaging studies did not show any acute new strokes or hemorrhagic conversion of previous stroke. We will therefore target blood pressure to the normal range. Present on Admission?: Yes (2) Vomiting: Question whether related to viral illness, or encephalopathy associated with UTI. Does not appear to be related to hypertension or strokes. Present on Admission?: Yes (3) CKD (chronic kidney disease), stage IV: Creatinine 1.98 is within her usual range, but she does appear dehydrated and urine specific gravity is 1.043. Hydrate with IV fluids, and follow clinical examination. Present on Admission?: Yes (4) Dehydration: Dehydration secondary to fluid losses from nausea vomiting, and decreased oral intake. Rehydrate with IV fluids as noted above. Present on Admission?: Yes (5) UTI (urinary tract infection): Started empirically on ceftriaxone 1 g IV daily by the ED. We will continue ceftriaxone 1 g IV daily. Rehydration with IV fluids as noted. Follow urine culture and sensitivity. Present on Admission?: Yes (6) Atrial fibrillation: Hold on Eliquis at this time, if unable to take oral medications in the morning, may change to IV heparin or subcu Lovenox. Present on Admission?: Yes (7) GERD (gastroesophageal reflux disease): Place on famotidine 20 mg IV every 12 hours. Present on Admission?: Yes (8) Acute ischemic left MCA stroke: Imaging studies show evolution of previous stroke as would be expected, do not demonstrate hemorrhagic conversion, and did not show any new strokes. Present on Admission?: Yes History of Present Illness Chief Complaint: The patient presents to the emergency department with complaint of vomiting that began earlier in the day, as reported by the patient's granddaughter. The patient herself is not able to contribute to her HPI or review of systems due to altered mental state. Primary Care Provider: Chuck Byrne MD The patient is an 88-year-old female, with a past medical history significant for left frontal MCA infarct found during admission from 10/19-10/20/18, during which her main symptoms were that of word salad. Her reports that she was able to carry on a conversation with him yesterday, however, today, the day of admission, she became more confused, and per the granddaughter was not recognizing people. She was not able to take much of her medications today due to vomiting, but did take her Eliquis earlier in the day. She has not had any recent travels or sick exposures. Per the ED, they report that the patient complained of pain above her left thigh, but this was not relayed to me by the patient. Allergies Allergy/AdvReac Type Severity Reaction Status Date / Time aspirin Allergy Unknown Verified 11/30/18 18:59 Penicillins Allergy Unknown Verified 11/30/18 18:59 Home Medications Home Medications Medication Instructions Recorded Confirmed Type albuterol sulfate [ProAir HFA] 2 puff INHALATION Q6H PRN 10/19/18 11/30/18 History budesonide-formoterol 2 puff INHALATION BID 10/19/18 11/30/18 History calcium carbonate [Calcium 500] 500 mg PO DAILY 10/19/18 11/30/18 History pantoprazole 40 mg PO DAILY 10/19/18 11/30/18 History apixaban [Eliquis] 2.5 mg PO Q12 11/06/18 11/30/18 History acetaminophen-caffeine [Excedrin 2 tab PO AMPM 11/30/18 11/30/18 History Tension Headache] amitriptyline 10 mg PO HS 11/30/18 11/30/18 History atorvastatin 0 mg PO DAILY 11/30/18 11/30/18 History Past Med/Surg History Social History Preferred Language: French Communication Ability: Impaired Communication Ability Comment: pt has been sedated for upcoming MRI Sales Administration Manager Required: No Beliefs That Will Affect Care: Voodoo Current Living Situation: Spouse and Family Current Living Situation Comment: loves w/ spouse and son Other Information That Helps Us Care for You: No Feels Safe at Home: Yes Safety Concerns: Feels Safe At This Time Smoking Status: Never smoker Hx Alcohol Use: No Hx Substance Use: No Review of Systems Review of systems very limited due to patient's present mental state, and is relayed by the granddaughter and , both of whom were present during the exam. Physical Exam Vital Signs (Past 24 Hours): Last Vital Signs Temp 36.4 C L 11/30/18 18:11 Pulse 101 H 11/30/18 20:21 Resp 16 11/30/18 20:21 BP 199/106 H 11/30/18 20:21 Pulse Ox 98 11/30/18 20:21 Physical Exam: The patient is lethargic and restless, normocephalic and atraumatic, in bed and otherwise in no acute distress. HEENT--PERRL, mucous membranes and oropharynx dry. Neck--supple. No JVD. No bruits. Thyroid normal, trachea midline, no adenopathy. Heart--normal S1 and S2. No murmurs, rubs or gallops. Lungs--clear bilaterally, no respiratory distress, no accessory muscle use. Abdomen--normal bowel sounds and soft. Nontender. Nondistended. Extremities--no cyanosis or clubbing. No edema. There are good distal pulses b/l. Dermatologic--normal skin turgor, normal color, no abnormal lymph nodes, no rash. Neurologic--cranial nerves II through XII grossly intact. Rheumatologic--moves all extremities equally well. Psychiatric--lethargic Results & Data Laboratory Results Laboratory Results WBC 7.08 K/uL (4.8-10.8) 11/30/18 18:32 RBC 5.31 M/uL (4.2-5.4) 11/30/18 18:32 Hgb 15.0 g/dL (12.0-16.0) 11/30/18 18:32 POC Hgb 16.3 g/dl (12.0-16.0) H 11/30/18 18:39 Hct 45.2 % (37-47) 11/30/18 18:32 POC Hct 48 % (37-47) H 11/30/18 18:39 MCV 85.1 fL (80-100) 11/30/18 18:32 MCH 28.2 pg (25-34) 11/30/18 18:32 MCHC 33.2 g/dL (32-36) 11/30/18 18:32 RDW Std Deviation 53.2 fL (36.4-46.3) H 11/30/18 18:32 RDW Coeff of Jennifer 17.1 % (11.5-14.5) H 11/30/18 18:32 Plt Count 273 K/uL (130-400) 11/30/18 18:32 MPV 10.0 fL (7.4-10.4) 11/30/18 18:32 Immature Gran % (Auto) 0.1 % 11/30/18 18:32 Neut % (Auto) 74.6 % 11/30/18 18:32 Lymph % (Auto) 15.1 % 11/30/18 18:32 Cook % (Auto) 9.3 % 11/30/18 18:32 Eos % (Auto) 0.6 % 11/30/18 18:32 Baso % (Auto) 0.3 % 11/30/18 18:32 Immature Gran # (Auto) 0.01 K/uL (0.00-0.02) 11/30/18 18:32 Neut # (Auto) 5.28 K/uL (1.4-6.5) 11/30/18 18:32 Lymph # (Auto) 1.07 K/uL (1.2-3.4) L 11/30/18 18:32 Cook # (Auto) 0.66 K/uL (0.11-0.59) H 11/30/18 18:32 Eos # (Auto) 0.04 K/uL (0-0.5) 11/30/18 18:32 Baso # (Auto) 0.02 K/uL (0-0.2) 11/30/18 18:32 PT 11.2 Seconds (9.0-12.0) 11/30/18 18:32 INR 1.1 (0.9-1.1) 11/30/18 18:32 APTT 24.8 Seconds (21.0-31.0) 11/30/18 18:32 PTT Ratio 0.9 11/30/18 18:32 POC Sodium 142 mEq/L (135-144) 11/30/18 18:39 Sodium 141 mmol/L (136-145) 11/30/18 18:32 POC Potassium 3.4 mEq/L (3.3-5.0) 11/30/18 18:39 Potassium 3.4 mmol/L (3.5-5.1) L 11/30/18 18:32 POC Chloride 107 mEq/L (101-112) 11/30/18 18:39 Chloride 107 mmol/L (98-107) 11/30/18 18:32 Carbon Dioxide 23 mmol/L (21-32) 11/30/18 18:32 POC Total CO2 22 mEq/l (24-31) L 11/30/18 18:39 Anion Gap 11.0 (3-11) 11/30/18 18:32 POC Anion Gap 17.0 mmol/L (16-25) 11/30/18 18:39 POC BUN 22 mg/dl (7-18) H 11/30/18 18:39 BUN 21 mg/dl (7-18) H 11/30/18 18:32 Creatinine 1.98 mg/dl (0.6-1.2) H 11/30/18 18:32 POC Creatinine 1.9 mg/dl (0.6-1.3) H 11/30/18 18:39 Est Cr Clr Drug Dosing 15.2 ml/min 11/30/18 18:32 Est GFR ( Amer) 25.3 11/30/18 18:32 Est GFR (Non-Af Amer) 21.9 11/30/18 18:32 BUN/Creatinine Ratio 10.8 (10-20) 11/30/18 18:32 Glucose 167 mg/dl (70-99) H 11/30/18 18:32 POC Glucose (other) 171 mg/dl (70-99) H 11/30/18 18:39 Calcium 10.9 mg/dl (8.5-10.1) H 11/30/18 18:32 POC Ioniz Calcium Brionna 1.38 mmol/l (1.12-1.32) H 11/30/18 18:39 Magnesium 1.7 mg/dl (1.8-2.4) L 11/30/18 18:32 Total Bilirubin 1.1 mg/dl (0.2-1) H 11/30/18 18:32 AST 24 U/L (15-37) 11/30/18 18:32 ALT 36 U/L (12-78) 11/30/18 18:32 Alkaline Phosphatase 115 U/L (45-117) 11/30/18 18:32 Total Creatine Kinase 46 U/L (26-192) 11/30/18 18:32 CK-MB (CK-2) 1.9 ng/ml (0.5-3.6) 11/30/18 18:32 CK/CKMB % Calc 4.1 (0-3.0) H 11/30/18 18:32 Troponin I 0.017 ng/ml (0-0.045) 11/30/18 18:32 Total Protein 7.8 gm/dl (6.4-8.2) 11/30/18 18:32 Albumin 3.9 gm/dl (3.4-5.0) 11/30/18 18:32 Globulin 3.9 gm/dl (2.5-4.0) 11/30/18 18:32 Albumin/Globulin Ratio 1.0 (0.9-2) 11/30/18 18:32 Urine Color Yellow 11/30/18 19:15 Urine Appearance Clear (Clear) 11/30/18 19:15 Urine pH 6.5 (4.5-7.5) 11/30/18 19:15 Ur Specific [place] 1.043 (1.000-1.030) H 11/30/18 19:15 Urine Protein 3+ (Negative) H 11/30/18 19:15 Urine Glucose (UA) Trace (Negative) H 11/30/18 19:15 Urine Ketones Trace (Negative) H 11/30/18 19:15 Urine Blood Trace (Negative) H 11/30/18 19:15 Urine Nitrite Negative (Negative) 11/30/18 19:15 Urine Bilirubin Negative (Negative) 11/30/18 19:15 Urine Urobilinogen Negative (Negative) 11/30/18 19:15 Ur Leukocyte Esterase Negative (Negative) 11/30/18 19:15 Urine WBC (Auto) 1-5 /hpf (0-5) 11/30/18 19:15 Urine RBC (Auto) 0-4 /hpf (0-4) 11/30/18 19:15 U Hyaline Cast (Auto) 1-5 /lpf (0-5) 11/30/18 19:15 U Epithel Cells (Auto) 10-20 /lpf (0-5) H 11/30/18 19:15 Urine Bacteria (Auto) Negative (Negative) 11/30/18 19:15 Diagnostic Findings [facility], [place] [phone] CT Scan Report Patient: SUSIE JACKSON AAdmit Date: 11/30/18 MR#: [id number]: [address] Acct ID:[id number]: Date: 1930[facility] Zip: [place] [address] Age: 88Location: ED Sex: F Room/Bed: Att Phy: Diagnosis: vomiting, SPIT UP, PAIN IN FRONT OF HEAD Maureen Phy: Chuck Byrne MDService Date: 11/30/18 Fam Phy: Chuck Byrne MDInterpreting Phy: Chuck Grande MD Admit Phy: Ordering Phy: Juanjo Lock MD cc: ~ CT head/brain wo con CLINICAL HISTORY: 88 years-old Female presenting with Stroke evaluation, confusion, history of recent stroke, altered mental status. TECHNIQUE: Multidetector CT imaging of the head was performed without the use of intravenous contrast. IV contrast: None. One or more dose lowering techniques were used consistent with the principles of ALARA (as low as reasonably achievable), including automatic exposure control, mA or kV adjustment to individual patient size, and/or use of iterative reconstruction. COMPARISON: 11/06/2018. CT DOSE (mGy.cm): The estimated cumulative dose is 2074.02. FINDINGS: Cardiac Technician topogram: Unremarkable. Proportional ventricular and sulcal prominence, likely age-related parenchymal volume loss. No hemorrhage. Involving now subacute to chronic left frontal cortical infarct. No acute territorial infarct. No mass effect or midline shift. No extra-axial fluid collection. Paranasal sinuses and mastoid air cells clear. Calvarium intact. Soft tissue in the external auditory canals likely cerumen. IMPRESSION: 1. No acute intracranial abnormality. 2. Evolving subacute to chronic left frontal infarct. Electronically signed by: Chuck Grande M.D. 11/30/2018 7:09 PM Dictated: 11/30/181905 Transcribed: 11/30/181905 [facility], [place] [phone] CT Scan Report Patient: SUSIE JACKSON AAdmit Date: 11/30/18 MR#: [id number]: [address] Acct ID:[id number]: Date: 1930 Zip: [place] [address] Age: 88Location: ED Sex: F Room/Bed: Att Phy: Diagnosis: vomiting, SPIT UP, PAIN IN FRONT OF HEAD Maureen Phy: Chuck Byrne MDService Date: 11/30/18 [facility] Phy: Chuck Byrne MDInterpreting Phy: Chuck Grande MD Admit Phy: Ordering Phy: Juanjo Lock MD cc: ~ CT angio neck with con CLINICAL HISTORY: 88 years-old Female presenting with Pt c/o AMS, recent stroke, confusion. TECHNIQUE: Multidetector CT angiography of the neck was performed after the administration of intravenous contrast. 3-D volumetric and/or maximum intensity projection (MIP) images were subsequently reconstructed for review. IV contrast: 120 mL of Optiray 320. One or more dose lowering techniques were used consistent with the principles of ALARA (as low as reasonably achievable), including automatic exposure control, mA or kV adjustment to individual patient size, and/or use of iterative reconstruction. Stenosis measurements were based on NASCET-like criteria (distal lumen diameter as the denominator for stenosis measurement). COMPARISON: Carotid Doppler ultrasound from 2013. CT DOSE (mGy.cm): The estimated cumulative dose is 4.02. FINDINGS: Cardiac Technician topogram: Unremarkable. Aortic arch: Significant calcified and noncalcified atherosclerotic plaque of the three-vessel aortic arch with patent origins of the branch vessels. Innominate artery: The origin of the innominate is not included within the [id number]. Atherosclerotic plaque of the otherwise patent visualized portion of the innominate. Right subclavian artery: Extensive tortuosity and irregularity of the right subclavian artery with atherosclerotic plaque. Right common carotid artery: Mild calcified atherosclerotic plaque throughout the common carotid. Right internal and external carotid arteries: Calcified and noncalcified atherosclerotic plaque at the carotid bifurcation. No significant stenosis results. The remainder of the right internal carotid artery is widely patent as is the external carotid artery beyond its proximal 1 cm. Left common carotid artery: Mild calcified and noncalcified atherosclerotic plaque. Left internal and external carotid arteries: Plaque at the carotid bifurcation does not result in significant stenosis. Tortuosity of the proximal left ICA. Left ECA widely patent. Left subclavian artery: Significant atherosclerotic plaque and kinking of the proximal left subclavian artery resulting in 50% luminal stenosis. Vertebral arteries: Left dominant vertebral artery. Origins and courses of the bilateral vertebral arteries patent. Other: Limited intracranial evaluation within normal limits. Soft tissues of the neck normal allowing for the phase of contrast. Degenerative changes of the cervical spine. Interlobular septal thickening and mosaic attenuation of the lung apices. IMPRESSION: 1. Significant atherosclerotic plaque burden including noncalcified atherosclerotic plaque. However, no significant stenosis of the cervical arteries. 2. The most significant site of stenosis is at the origin and proximal portion of the left subclavian artery with up to 50% stenosis. This is largely due to kinking. Electronically signed by: Chuck Grande M.D. 11/30/2018 7:23 PM Dictated: 11/30/181917 Transcribed: 11/30/181917 [place], [place] [phone] CT Scan Report Patient: SUSIE JCAKSON AAdmit Date: 11/30/18 MR#: [id number]: [address] Acct ID:[id number]: Date: 1930[facility] Zip: [place] [address] Age: 88Location: ED Sex: F Room/Bed: Att Phy: Diagnosis: vomiting, SPIT UP, PAIN IN FRONT OF HEAD Maureen Phy: Chuck Byrne MDService Date: 11/30/18 [facility] Phy: Chuck Byrne MDInterpreting Phy: Chuck Grande MD Admit Phy: Ordering Phy: Juanjo Lock MD cc: ~ CT angio head w con CLINICAL HISTORY: 88 years-old Female presenting with Pt c/o AMS. TECHNIQUE: Multidetector CT angiography of the head was performed after the administration of intravenous contrast. 3-D volumetric and/or maximum intensity projection (MIP) images were subsequently reconstructed for review. IV contrast: 120 mL of Optiray 320. One or more dose lowering techniques were used consistent with the principles of ALARA (as low as reasonably achievable), including automatic exposure control, mA or kV adjustment to individual patient size, and/or use of iterative reconstruction. COMPARISON: CT head performed the same day. CT DOSE (mGy.cm): The estimated cumulative dose is 2074.02. FINDINGS: Cardiac Technician topogram: Unremarkable. Anterior circulation: Atherosclerosis of the cavernous segments of the internal carotid arteries. Intracranial portions of the internal carotid arteries patent to the level of the termini. Anterior cerebral arteries patent. Middle cerebral arteries patent. Anterior communicating artery patent. Posterior circulation: Left dominant vertebral artery. Intradural portions of the vertebral arteries patent. Posterior inferior cerebellar arteries patent. Mild irregularity of the basilar artery likely related to atherosclerotic disease. Anterior inferior cerebellar arteries poorly visualized. Superior cerebellar arteries patent. Posterior cerebral arteries patent, although there is significant irregularity of the P2 segment of the left MAST MAKER. Posterior communicating arteries hypoplastic or aplastic. Dural venous sinuses: Patent. Other: Allowing for the phase of contrast, brain parenchyma within normal limits. Calvarium intact. IMPRESSION: 1. Significant irregularity of the P2 segment of the left MAST MAKER may relate to a therosclerotic disease, which is seen elsewhere to a lesser degree. No evidence of aneurysm or focal vessel occlusion. Electronically signed by: Chuck Grande M.D. 11/30/2018 7:34 PM Dictated: 11/30/181929 Transcribed: 11/30/181929 [place], [place] [phone] XRay Report Patient: SUSIE JACKSON AAdmit Date: 11/30/18 MR#: [id number]: [address] [facility] Acct ID:[id number]: Date: 1930[facility] Zip: [place] [address] Age: 88Location: ED Sex: F Room/Bed: Att Phy: Diagnosis: vomiting, SPIT UP, PAIN IN FRONT OF HEAD Maureen Phy: Chuck Byrne MDService Date: 11/30/18 Fam Phy: Chuck Byrne MDInterpreting Phy: Chuck Grande MD Admit Phy: Ordering Phy: Juanjo Lock MD cc: ~ XR chest 1V portable CLINICAL HISTORY: 88 years-old Female presenting with Pt c/o AMS. TECHNIQUE: Portable upright AP view of the chest was obtained. COMPARISON: 07/12/2017. FINDINGS: Atherosclerosis of the aortic arch. Cardiac silhouette enlarged. Exaggerated thoracic kyphosis suspected. Bandlike opacity at the right lung base unchanged. Coarsened lung markings. No new focal opacity though there is decreased aeration of the lung bases in comparison to prior. No large effusion or pneumothorax. Calcified granulomata may be present. Osteopenia. Upper abdomen normal. IMPRESSION: 1. Cardiomegaly. No vince pulmonary edema or congestive change. 2. Right basilar atelectasis. 3. Decreased aeration of the lung bases. Electronically signed by: Chuck Grande M.D. 11/30/2018 6:40 PM Dictated: 11/30/181838 Transcribed: 11/30/181838 [place], [place] [phone] CT Scan Report Patient: SUSIE JACKSON AAdmit Date: 11/30/18 MR#: [id number]: [address] Acct ID:[id number]: Date: 1930City Zip: [place] [address] Age: 88Location: ED Sex: F Room/Bed: Att Phy: Diagnosis: vomiting, SPIT UP, PAIN IN FRONT OF HEAD Maureen Phy: Chuck Byrne MDService Date: 11/30/18 Fam Phy: Chuck Byrne MDInterpreting Phy: Chuck Grande MD Admit Phy: Ordering Phy: Juanjo Lock MD cc: ~ CT abd pelvis IV con only CLINICAL HISTORY: 88 years-old Female presenting with Pt c/o emesis, confusion, recent stroke, altered mental status. TECHNIQUE: Multidetector CT of the abdomen and pelvis was performed after the administration of intravenous contrast. IV contrast: 120 mL of Optiray 320. One or more dose lowering techniques were used consistent with the principles of ALARA (as low as reasonably achievable), including automatic exposure control, mA or kV adjustment to individual patient size, and/or use of iterative reconstruction. COMPARISON: None. CT DOSE (mGy.cm): The estimated cumulative dose is 2074.02 mGy.cm. FINDINGS: Cardiac Technician topogram: Unremarkable. Lung bases: Multichamber enlargement of the heart. Coronary artery, aortic valve, and mitral annular calcification. Small bilateral pleural effusions, which may be loculated on the right. Prominent bandlike opacities at the lung bases likely extensive atelectasis. Mosaic attenuation and interlobular septal thickening. Liver: Normal morphology. Vague hypodensity along the fissure for the ligamentum teres, likely perfusional variation or focal fat. Patent hepatic vasculature. Biliary: No intrahepatic or extrahepatic biliary ductal dilatation. Gallstones noted at the fundus intensely also with adenomyomatosis. Pancreas: Moderate parenchymal atrophy. Spleen: Normal. Adrenal glands: Normal. Kidneys and ureters: Right greater than left renal atrophy, which is severe on the right. Urothelial thickening evident, right greater than left. No hydronephrosis or nephrolithiasis. Ureters nondistended. Bladder: Incompletely evaluated secondary to underdistention. Pelvic organs: Uterus surgically absent. No adnexal masses. Bowel: Diverticulosis of the mid to distal sigmoid colon without wall thickening or pericolonic inflammatory change. No bowel obstruction. Distal small bowel is significantly decompressed. The appendix is not confidently visualized though no inflammatory changes are noted in the region of the cecum. Moderate hiatal hernia, which appears to be a sliding-type. Peritoneal cavity: No free fluid or intraperitoneal gas. Lymph nodes: No enlarged lymph nodes in the abdomen or pelvis. Vasculature: Dense atherosclerotic calcified plaque throughout the abdominal aorta and its major branch vessels. The abdominal aorta is normal in caliber although tortuous. IVC patent. Abdominal wall: Normal. Musculoskeletal: Degenerative changes of the spine. Chronic fracture of the left inferior pubic ramus. Osteopenia suspected. IMPRESSION: 1. No acute intra-abdominal pathology. 2. Chronic findings as above, most notably severe right renal atrophy, cholelithiasis, diverticulosis coli, and moderate hiatal hernia. 3. Extensive bibasilar atelectasis and congestive change at the lung bases. Developing pulmonary edema not excluded. 4. Chronic fracture of the left inferior pubic ramus. Electronically signed by: Chuck Grande M.D. 11/30/2018 7:16 PM Dictated: 11/30/181908 Transcribed: 11/30/181908 [place], [place] [phone] CT Scan Report Patient: SUSIE JACKSON AAdmit Date: 11/30/18 MR#: [id number]: [address] Acct ID:[id number]: Date: 1930[facility] Zip: [place] [address] Age: 88Location: ED Sex: F Room/Bed: Att Phy: Diagnosis: vomiting, SPIT UP, PAIN IN FRONT OF HEAD Maureen Phy: Chuck Byrne MDService Date: 11/30/18 [facility] Phy: Chuck Byrne MDInterpreting Phy: Chuck Grande MD Admit Phy: Ordering Phy: Juanjo Lock MD cc: ~ CT abd pelvis IV con only CLINICAL HISTORY: 88 years-old Female presenting with Pt c/o emesis, confusion, recent stroke, altered mental status. TECHNIQUE: Multidetector CT of the abdomen and pelvis was performed after the administration of intravenous contrast. IV contrast: 120 mL of Optiray 320. One or more dose lowering techniques were used consistent with the principles of ALARA (as low as reasonably achievable), including automatic exposure control, mA or kV adjustment to individual patient size, and/or use of iterative reconstruction. COMPARISON: None. CT DOSE (mGy.cm): The estimated cumulative dose is 2074.02 mGy.cm. FINDINGS: Cardiac Technician topogram: Unremarkable. Lung bases: Multichamber enlargement of the heart. Coronary artery, aortic valve, and mitral annular calcification. Small bilateral pleural effusions, which may be loculated on the right. Prominent bandlike opacities at the lung b ases likely extensive atelectasis. Mosaic attenuation and interlobular septal thickening. Liver: Normal morphology. Vague hypodensity along the fissure for the ligamentum teres, likely perfusional variation or focal fat. Patent hepatic vasculature. Biliary: No intrahepatic or extrahepatic biliary ductal dilatation. Gallstones noted at the fundus intensely also with adenomyomatosis. Pancreas: Moderate parenchymal atrophy. Spleen: Normal. Adrenal glands: Normal. Kidneys and ureters: Right greater than left renal atrophy, which is severe on the right. Urothelial thickening evident, right greater than left. No hydronephrosis or nephrolithiasis. Ureters nondistended. Bladder: Incompletely evaluated secondary to underdistention. Pelvic organs: Uterus surgically absent. No adnexal masses. Bowel: Diverticulosis of the mid to distal sigmoid colon without wall thickening or pericolonic inflammatory change. No bowel obstruction. Distal small bowel is significantly decompressed. The appendix is not confidently visualized though no inflammatory changes are noted in the region of the cecum. Moderate hiatal hernia, which appears to be a sliding-type. Peritoneal cavity: No free fluid or intraperitoneal gas. Lymph nodes: No enlarged lymph nodes in the abdomen or pelvis. Vasculature: Dense atherosclerotic calcified plaque throughout the abdominal aorta and its major branch vessels. The abdominal aorta is normal in caliber although tortuous. IVC patent. Abdominal wall: Normal. Musculoskeletal: Degenerative changes of the spine. Chronic fracture of the left inferior pubic ramus. Osteopenia suspected. IMPRESSION: 1. No acute intra-abdominal pathology. 2. Chronic findings as above, most notably severe right renal atrophy, cholelithiasis, diverticulosis coli, and moderate hiatal hernia. 3. Extensive bibasilar atelectasis and congestive change at the lung bases. Developing pulmonary edema not excluded. 4. Chronic fracture of the left inferior pubic ramus. Electronically signed by: Chuck Grande M.D. 11/30/2018 7:16 PM Dictated: 11/30/181908 Transcribed: 11/30/181908 [place], [place] [phone] Magnetic Resonance Report Patient: SUSIE JACKSON AAdmit Date: 11/30/18 MR#: [id number]: [address] Acct ID:[id number]: Date: 1930[facility] Zip: [place] [address] Age: 88Location: 2S Sex: F Room/Bed: [facility] Att Phy: Roscoe Solitario M.D.Diagnosis: ALTERED MENTAL STATE, RECENT CVA, DEHYDRATION Maureen Phy: Chuck Byrne MDService Date: 11/30/18 Fam Phy: Interpreting Phy: Chuck Grande MD Admit Phy: Roscoe Solitario M.D. Ordering Phy: Roscoe Solitario M.D. cc: ~ MR brain wo con CLINICAL HISTORY: 88 years-old Female presenting with altered mental state, evolving subacute CVA. TECHNIQUE: Multisequence, multiplanar MR imaging of the brain was performed without the use of intravenous contrast. IV contrast: None. COMPARISON: Noncontrast CT performed earlier today.. FINDINGS: Localizer images: Unremarkable. Several sequences are degraded by motion artifact. This mildly limits diagnostic sensitivity the exam. Normal midline sagittal structures. Proportional ventricular and sulcal prominence, likely age-related parenchymal volume loss. No hemorrhage. Periventricular white matter T2/FLAIR hyperintensity, nonspecific though likely chronic small vessel ischemic change. Subacute infarct in the left frontal lobe with heterogeneous diffusion signal intensity and T2 hyperintensity. No mass effect though expected dilatation of the sulci not yet apparent. No mass effect or midline shift. No extra-axial fluid collection. T2 skull base flow voids preserved. Bone marrow signal intensity within the calvarium within normal limits. IMPRESSION: Several sequences are degraded by motion artifact. This mildly limits diagnostic sensitivity the exam. 1. Subacute left frontal infarct. No hemorrhagic transformation. 2. Chronic small vessels ischemic change. No acute intracranial pathology. Electronically signed by: Chuck Grande M.D. 11/30/2018 10:10 PM Dictated: 11/30/18 2155 Transcribed: 11/30/18 220 Code Status & VTE Plan Code Status Full code VTE Prophylaxis Plan VTE Prophylaxis will be ordered: Yes
--- NOTE | 2018-11-30 22:11 | Magnetic Resonance Report ---
MR brain wo con CLINICAL HISTORY: 88 years-old Female presenting with altered mental state, evolving subacute CVA. TECHNIQUE: Multisequence, multiplanar MR imaging of the brain was performed without the use of intrav enous contrast. IV contrast: None. COMPARISON: Noncontrast CT performed earlier today.. FINDINGS: Localizer images: Unremarkable. Several sequences are degraded by motion artifact. This mildly limits diagnostic sensitivity the exam . Normal midline sagittal structures. Proportional ventricular and sulcal prominence, likely age-relate d parenchymal volume loss. No hemorrhage. Periventricular white matter T2/FLAIR hyperintensity, nonsp ecific though likely chronic small vessel ischemic change. Subacute infarct in the left frontal lobe with heterogeneous diffusion signal intensity and T2 hyperintensity. No mass effect though expected d ilatation of the sulci not yet apparent. No mass effect or midline shift. No extra-axial fluid collection. T2 skull base flow voids preserved. Bone marrow signal intensity within the calvarium within normal limits. IMPRESSION: Several sequences are degraded by motion artifact. This mildly limits diagnostic sensitivity the exam . 1. Subacute left frontal infarct. No hemorrhagic transformation. 2. Chronic small vessels ischemic change. No acute intracranial pathology. Electronically signed by: Chuck Grande M.D. 11/30/2018 10:10 PM
[2018-11-30] MEDS ORDERED: ONDANSETRON INJ 2 MG/ML 2 ML VIAL IV PRN (22:25)
[2018-11-30] MEDS: SODIUM CHLORIDE 0.9% 1000ML 1,000 ML IV SCH (22:27)
--- NOTE | 2018-12-01 02:41 | Emergency Department Note ---
Entered by Lexy Gómez acting as a scribe for Juanjo Lock MD History of Present Illness General Chief complaint: Vomiting Stated complaint: vomiting, SPIT UP, PAIN IN FRONT OF HEAD Time Seen by Provider: 11/30/18 18:18 Source: patient and family (granddaughter; ) History of Present Illness Onset (ago): hour(s) (today) Location: abdomen Pain Consistency: + other (persistent) Quality: + other (vomiting) Associated symptoms: + other (negative abdominal pain; positive pain above left eye; positive confusion); no headaches The patient is a 88 year old female who presents to the Emergency Room with complaints of vomiting that began today, per the patient's granddaughter. The patient's granddaughter states that the patient has reported pain today above her left eye and has become increasingly confused throughout the day. The patient's granddaughter states that the patient is not recognizing familiar people. The patient denies headache and abdominal pain. Per the patient's , the patient has only been able to have her Eliquis today because she has vomited everything else up. Per the patient's granddaughter, the patient fell about one month ago and had a stroke two weeks after the fall. The patient's granddaughter states that the patient has stage IV kidney disease. Home Medications Home Medications Medication Instructions Recorded Confirmed Type albuterol sulfate [ProAir HFA] 2 puff INHALATION Q6H PRN 10/19/18 11/30/18 History budesonide-formoterol 2 puff INHALATION BID 10/19/18 11/30/18 History calcium carbonate [Calcium 500] 500 mg PO DAILY 10/19/18 11/30/18 History pantoprazole 40 mg PO DAILY 10/19/18 11/30/18 History apixaban [Eliquis] 2.5 mg PO Q12 11/06/18 11/30/18 History acetaminophen-caffeine [Excedrin 2 tab PO AMPM 11/30/18 11/30/18 History Tension Headache] amitriptyline 10 mg PO HS 11/30/18 11/30/18 History atorvastatin 0 mg PO DAILY 11/30/18 11/30/18 History Allergies Allergy/AdvReac Type Severity Reaction Status Date / Time aspirin Allergy Unknown Verified 11/30/18 18:59 Penicillins Allergy Unknown Verified 11/30/18 18:59 Past Med/Surg History Social History Preferred Language: Mozambican Communication Ability: Impaired Communication Ability Comment: pt has been sedated for upcoming MRI Rv Servicer Required: No Beliefs That Will Affect Care: Taoist Current Living Situation: Spouse and Family Current Living Situation Comment: loves w/ spouse and son Other Information That Helps Us Care for You: No Feels Safe at Home: Yes Safety Concerns: Feels Safe At This Time Smoking Status: Never smoker Hx Alcohol Use: No Hx Substance Use: No Review of Systems See HPI for pertinent positives & negatives. and A total of 10 systems reviewed and were otherwise negative Physical Exam Vital Signs Vital Signs - 24 hr 11/30/18 18:11 11/30/18 19:15 11/30/18 20:21 Temperature 36.4 C L Temperature Source Oral Sepsis Recent Fever Within 48 Hours No Sepsis Action Taken by Nursing No Action Required Pulse Rate 102 H Pulse Rate [Right] 90 101 H Pulse Rhythm [Right] Irregular Regular Pulse Strength [Right] Normal Normal Respiratory Rate 20 18 16 Respiratory Effort / Characteristics Non-Labored Spontaneous Non-Labored Spontaneous Respiratory Depth Normal Normal Respiratory Pattern Regular Blood Pressure 212/102 H Blood Pressure [Right Arm] 196/96 H 199/106 H Blood Pressure Mean 138 Blood Pressure Mean [Right Arm] 129 137 Blood Pressure Position Sitting Blood Pressure Position [Right Arm] Lying Pulse Oximetry 97 96 98 Oxygen Delivery Method Room Air Nasal Cannula Nasal Cannula Oxygen Flow Rate 4 2 11/30/18 21:05 11/30/18 21:18 11/30/18 22:25 Temperature 36.6 C Temperature Source Axillary Sepsis Recent Fever Within 48 Hours Sepsis Action Taken by Nursing Pulse Rate Pulse Rate [Right] 102 H 115 H Pulse Rhythm [Right] Pulse Strength [Right] Respiratory Rate 16 20 Respiratory Effort / Characteristics Non-Labored Spontaneous Respiratory Depth Normal Respiratory Pattern Blood Pressure Blood Pressure [Right Arm] 191/126 H 226/97 H Blood Pressure Mean Blood Pressure Mean [Right Arm] 147 140 Blood Pressure Position Blood Pressure Position [Right Arm] Lying Pulse Oximetry 98 94 Oxygen Delivery Method Nasal Cannula Nasal Cannula Nasal Cannula Oxygen Flow Rate 2 2 2 11/30/18 23:08 11/30/18 23:14 12/01/18 02:27 Temperature 37.3 C Temperature Source Oral Sepsis Recent Fever Within 48 Hours Sepsis Action Taken by Nursing Pulse Rate 118 H Pulse Rate [Right] 117 H 125 H Pulse Rhythm [Right] Pulse Strength [Right] Respiratory Rate 18 Respiratory Effort / Characteristics Non-Labored Spontaneous Non-Labored Spontaneous Respiratory Depth Normal Normal Respiratory Pattern Regular Regular Blood Pressure Blood Pressure [Right Arm] 183/99 H 171/68 H Blood Pressure Mean Blood Pressure Mean [Right Arm] 127 102 Blood Pressure Position Blood Pressure Position [Right Arm] Lying Pulse Oximetry 98 Oxygen Delivery Method Nasal Cannula Nasal Cannula Oxygen Flow Rate 2 2 GENERAL: Awake, alert, well-appearing, in no distress HENT: Normocephalic, atraumatic. Oropharynx unremarkable. EYES: Normal conjunctiva. Sclera non-icteric. NECK: Supple. No nuchal rigidity. FROM. No masses. RESPIRATORY: Clear to auscultation. No wheezes. No rales. Normal respiratory effort. CARDIAC: Normal rate. Normal rhythm. No murmurs. No rubs. Extremities warm and well perfused. Pulses equal. No JVD. GI: Soft, non-distended. No tenderness to palpation. No rebound or guarding. No masses. RECTAL: Deferred. MUSCULOSKELETAL: Atraumatic. Chest examination reveals no tenderness. The back is symmetrical on inspection without obvious abnormality. There is no CVA tenderness to palpation. No joint edema. LOWER EXTREMITIES: Calves are equal size bilaterally and non-tender. No edema. No discoloration. NEURO: Normal sensorium. No sensory or motor deficits noted. Course 1818: The patient was evaluated in room C9, and a complete history and physical examination were performed. 2005: [facility] for [facility] evaluation. Consultations Consultation #1: I discussed the [facility] patient for further evaluation. Time: 20:05 Administered Medications Sodium Chloride (Nss 1000ml) 1,000 mls @ 80 mls/hr IV .[id number] RHONDA Stop: 12/30/18 20:59 Last Admin: 11/30/18 22:27 Dose: 80 mls/hr Documented by: [id number] Ioversol (Optiray 320 125ml) 120 ml IV ONCE PRN PRN Reason: Interaction Checking Stop: 12/04/18 19:03 Last Admin: 11/30/18 19:04 Dose: 120 ml Documented by: [id number] Discontinued Medications Ceftriaxone Sodium (Rocephin) 1,000 mg in 50 mls @ 100 mls/hr IV NOW STA Stop: 11/30/18 20:17 Last Infusion: 11/30/18 20:56 Dose: 0 mls/hr Documented by: [id number] Admin: 11/30/18 20:23 Dose: 100 mls/hr Documented by: [id number] Lorazepam (Ativan) 0.5 mg in 1 mls @ 1 mls/min IV NOW STA Stop: 11/30/18 20:46 Last Admin: 11/30/18 20:53 Dose: 1 mls/min Documented by: [id number] Labetalol HCl (Normodyne) 10 mg IV Q10M PRN PRN Reason: SBP above 185 or DBP above 110 Last Admin: 11/30/18 19:02 Dose: 10 mg Documented by: [id number] Cosigned by: [id number] Ondansetron HCl (Zofran) 4 mg IV NOW STA Stop: 11/30/18 18:38 Last Admin: 11/30/18 19:02 Dose: 4 mg Documented by: [id number] Medical Decision Making Differential Diagnosis Differential includes acute coronary syndrome, myocardial infarction, CVA, TIA, anemia, infection, pneumonia, UTI, pyelonephritis, poor nutrition, dehydration, electrolyte disturbance,hypoglycemia. Home Medications Current Medication List: was personally reviewed by me Laboratory Data Attestation: I reviewed the patient's lab results. Result diagrams: 11/30/18 18:32 11/30/18 18:32 Lab Results 11/30/18 11/30/18 11/30/18 Range/Units 18:32 18:32 18:32 WBC 7.08 (4.8-10.8) K/uL RBC 5.31 (4.2-5.4) M/uL Hgb 15.0 (12.0-16.0) g/dL POC Hgb (12.0-16.0) g/dl Hct 45.2 (37-47) % POC Hct (37-47) % MCV 85.1 (80-100) fL MCH 28.2 (25-34) pg MCHC 33.2 (32-36) g/dL RDW Std Deviation 53.2 H (36.4-46.3) fL RDW Coeff of Jennifer 17.1 H (11.5-14.5) % Plt Count 273 (130-400) K/uL MPV 10.0 (7.4-10.4) fL Immature Gran % (Auto) 0.1 % Neut % (Auto) 74.6 % Lymph % (Auto) 15.1 % [place] % (Auto) 9.3 % Eos % (Auto) 0.6 % Baso % (Auto) 0.3 % Immature Gran # (Auto) 0.01 (0.00-0.02) K/uL Neut # (Auto) 5.28 (1.4-6.5) K/uL Lymph # (Auto) 1.07 L (1.2-3.4) K/uL [place] # (Auto) 0.66 H (0.11-0.59) K/uL Eos # (Auto) 0.04 (0-0.5) K/uL Baso # (Auto) 0.02 (0-0.2) K/uL PT 11.2 (9.0-12.0) Seconds INR 1.1 (0.9-1.1) APTT 24.8 (21.0-31.0) Seconds PTT Ratio 0.9 POC Sodium (135-144) mEq/L Sodium 141 (136-145) mmol/L POC Potassium (3.3-5.0) mEq/L Potassium 3.4 L (3.5-5.1) mmol/L POC Chloride (101-112) mEq/L Chloride 107 (98-107) mmol/L Carbon Dioxide 23 (21-32) mmol/L POC Total CO2 (24-31) mEq/l Anion Gap 11.0 (3-11) POC Anion Gap (16-25) mmol/L POC BUN (7-18) mg/dl BUN 21 H (7-18) mg/dl Creatinine 1.98 H (0.6-1.2) mg/dl POC Creatinine (0.6-1.3) mg/dl Est Cr Clr Drug Dosing 15.2 ml/min Est GFR ( Amer) 25.3 Est GFR (Non-Af Amer) 21.9 BUN/Creatinine Ratio 10.8 (10-20) Glucose 167 H (70-99) mg/dl POC Glucose (other) (70-99) mg/dl Calcium 10.9 H (8.5-10.1) mg/dl POC Ioniz Calcium Brionna (1.12-1.32) mmol/l Magnesium 1.7 L (1.8-2.4) mg/dl Total Bilirubin 1.1 H (0.2-1) mg/dl AST 24 (15-37) U/L ALT 36 (12-78) U/L Alkaline Phosphatase 115 (45-117) U/L Total Creatine Kinase 46 (26-192) U/L CK-MB (CK-2) 1.9 (0.5-3.6) ng/ml CK/CKMB % Calc 4.1 H (0-3.0) Troponin I 0.017 (0-0.045) ng/ml Total Protein 7.8 (6.4-8.2) gm/dl Albumin 3.9 (3.4-5.0) gm/dl Globulin 3.9 (2.5-4.0) gm/dl Albumin/Globulin Ratio 1.0 (0.9-2) Urine Color Urine Appearance (Clear) Urine pH (4.5-7.5) Ur Specific Barre (1.000-1.030) Urine Protein (Negative) Urine Glucose (UA) (Negative) Urine Ketones (Negative) Urine Blood (Negative) Urine Nitrite (Negative) Urine Bilirubin (Negative) Urine Urobilinogen (Negative) Ur Leukocyte Esterase (Negative) Urine WBC (Auto) (0-5) /hpf Urine RBC (Auto) (0-4) /hpf U Hyaline Cast (Auto) (0-5) /lpf U Epithel Cells (Auto) (0-5) /lpf Urine Bacteria (Auto) (Negative) 11/30/18 11/30/18 Range/Units 18:39 19:15 WBC (4.8-10.8) K/uL RBC (4.2-5.4) M/uL Hgb (12.0-16.0) g/dL POC Hgb 16.3 H (12.0-16.0) g/dl Hct (37-47) % POC Hct 48 H (37-47) % MCV (80-100) fL MCH (25-34) pg MCHC (32-36) g/dL RDW Std Deviation (36.4-46.3) fL RDW Coeff of Jennifer (11.5-14.5) % Plt Count (130-400) K/uL MPV (7.4-10.4) fL Immature Gran % (Auto) % Neut % (Auto) % Lymph % (Auto) % [place] % (Auto) % Eos % (Auto) % Baso % (Auto) % Immature Gran # (Auto) (0.00-0.02) K/uL Neut # (Auto) (1.4-6.5) K/uL Lymph # (Auto) (1.2-3.4) K/uL [place] # (Auto) (0.11-0.59) K/uL Eos # (Auto) (0-0.5) K/uL Baso # (Auto) (0-0.2) K/uL PT (9.0-12.0) Seconds INR (0.9-1.1) APTT (21.0-31.0) Seconds PTT Ratio POC Sodium 142 (135-144) mEq/L Sodium (136-145) mmol/L POC Potassium 3.4 (3.3-5.0) mEq/L Potassium (3.5-5.1) mmol/L POC Chloride 107 (101-112) mEq/L Chloride (98-107) mmol/L Carbon Dioxide (21-32) mmol/L POC Total CO2 22 L (24-31) mEq/l Anion Gap (3-11) POC Anion Gap 17.0 (16-25) mmol/L POC BUN 22 H (7-18) mg/dl BUN (7-18) mg/dl Creatinine (0.6-1.2) mg/dl POC Creatinine 1.9 H (0.6-1.3) mg/dl Est Cr Clr Drug Dosing ml/min Est GFR ( Amer) Est GFR (Non-Af Amer) BUN/Creatinine Ratio (10-20) Glucose (70-99) mg/dl POC Glucose (other) 171 H (70-99) mg/dl Calcium (8.5-10.1) mg/dl POC Ioniz Calcium Brionna 1.38 H (1.12-1.32) mmol/l Magnesium (1.8-2.4) mg/dl Total Bilirubin (0.2-1) mg/dl AST (15-37) U/L ALT (12-78) U/L Alkaline Phosphatase (45-117) U/L Total Creatine Kinase (26-192) U/L CK-MB (CK-2) (0.5-3.6) ng/ml CK/CKMB % Calc (0-3.0) Troponin I (0-0.045) ng/ml Total Protein (6.4-8.2) gm/dl Albumin (3.4-5.0) gm/dl Globulin (2.5-4.0) gm/dl Albumin/Globulin Ratio (0.9-2) Urine Color Yellow Urine Appearance Clear (Clear) Urine pH 6.5 (4.5-7.5) Ur Specific Barre 1.043 H (1.000-1.030) Urine Protein 3+ H (Negative) Urine Glucose (UA) Trace H (Negative) Urine Ketones Trace H (Negative) Urine Blood Trace H (Negative) Urine Nitrite Negative (Negative) Urine Bilirubin Negative (Negative) Urine Urobilinogen Negative (Negative) Ur Leukocyte Esterase Negative (Negative) Urine WBC (Auto) 1-5 (0-5) /hpf Urine RBC (Auto) 0-4 (0-4) /hpf U Hyaline Cast (Auto) 1-5 (0-5) /lpf U Epithel Cells (Auto) 10-20 H (0-5) /lpf Urine Bacteria (Auto) Negative (Negative) Imaging Data Radiologist's Impression: Radiology results as stated below per my review and the radiologist's interpretation: CT head/brain wo con CLINICAL HISTORY: 88 years-old Female presenting with Stroke evaluation, confusion, history of recent stroke, altered mental status. TECHNIQUE: Multidetector CT imaging of the head was performed without the use of intravenous contrast. IV contrast: None. One or more dose lowering techniques were used consistent with the principles of ALARA (as low as reasonably achievable), including automatic exposure control, mA or kV adjustment to individual patient size, and/or use of iterative reconstruction. COMPARISON: 11/06/2018. CT DOSE (mGy.cm): The estimated cumulative dose is 2074.02. FINDINGS: Gas Leak Tester topogram: Unremarkable. Proportional ventricular and sulcal prominence, likely age-related parenchymal volume loss. No hemorrhage. Involving now subacute to chronic left frontal cortical infarct. No acute territorial infarct. No mass effect or midline shift. No extra-axial fluid collection. Paranasal sinuses and mastoid air cells clear. Calvarium intact. Soft tissue in the external auditory canals likely cerumen. IMPRESSION: 1. No acute intracranial abnormality. 2. Evolving subacute to chronic left frontal infarct. Electronically signed by: Chuck Grande M.D. 11/30/2018 7:09 PM XR chest 1V portable CLINICAL HISTORY: 88 years-old Female presenting with Pt c/o AMS. TECHNIQUE: Portable upright AP view of the chest was obtained. COMPARISON: 07/12/2017. FINDINGS: Atherosclerosis of the aortic arch. Cardiac silhouette enlarged. Exaggerated thoracic kyphosis suspected. Bandlike opacity at the right lung base unchanged. Coarsened lung markings. No new focal opacity though there is decreased aeration of the lung bases in comparison to prior. No large effusion or pneumothorax. Calcified granulomata may be present. Osteopenia. Upper abdomen normal. IMPRESSION: 1. Cardiomegaly. No vince pulmonary edema or congestive change. 2. Right basilar atelectasis. 3. Decreased aeration of the lung bases. Electronically signed by: Chuck Grande M.D. 11/30/2018 6:[address] angio head w con CLINICAL HISTORY: 88 years-old Female presenting with Pt c/o AMS. TECHNIQUE: Multidetector CT angiography of the head was performed after the a dministration of intravenous contrast. 3-D volumetric and/or maximum intensity projection (MIP) images were subsequently reconstructed for review. IV contrast: 120 mL of Optiray 320. One or more dose lowering techniques were used consistent with the principles of ALARA (as low as reasonably achievable), including automatic exposure control, mA or kV adjustment to individual patient size, and/or use of iterative reconstruction. COMPARISON: CT head performed the same day. CT DOSE (mGy.cm): The estimated cumulative dose is 4.02. FINDINGS: Gas Leak Tester topogram: Unremarkable. Anterior circulation: Atherosclerosis of the cavernous segments of the internal carotid arteries. Intracranial portions of the internal carotid arteries patent to the level of the termini. Anterior cerebral arteries patent. Middle cerebral arteries patent. Anterior communicating artery patent. Posterior circulation: Left dominant vertebral artery. Intradural portions of the vertebral arteries patent. Posterior inferior cerebellar arteries patent. Mild irregularity of the basilar artery likely related to atherosclerotic disease. Anterior inferior cerebellar arteries poorly visualized. Superior cerebellar arteries patent. Posterior cerebral arteries patent, although there is significant irregularity of the P2 segment of the left CRIME ANALYST. Posterior communicating arteries hypoplastic or aplastic. Dural venous sinuses: Patent. Other: Allowing for the phase of contrast, brain parenchyma within normal limits. Calvarium intact. IMPRESSION: 1. Significant irregularity of the P2 segment of the left CRIME ANALYST may relate to atherosclerotic disease, which is seen elsewhere to a lesser degree. No evidence of aneurysm or focal vessel occlusion. Electronically signed by: Chuck Grande M.D. 11/30/2018 7:[address] angio neck with con CLINICAL HISTORY: 88 years-old Female presenting with Pt c/o AMS, recent stroke, confusion. TECHNIQUE: Multidetector CT angiography of the neck was performed after the administration of intravenous contrast. 3-D volumetric and/or maximum intensity projection (MIP) images were subsequently reconstructed for review. IV contrast: 120 mL of Optiray 320. One or more dose lowering techniques were used consistent with the principles of ALARA (as low as reasonably achievable), including automatic exposure control, mA or kV adjustment to individual patient size, and/or use of iterative reconstruction. Stenosis measurements were based on NASCET-like criteria (distal lumen diameter as the denominator for stenosis measurement). COMPARISON: Carotid Doppler ultrasound from 2013. CT DOSE (mGy.cm): The estimated cumulative dose is 4.02. FINDINGS: Gas Leak Tester topogram: Unremarkable. Aortic arch: Significant calcified and noncalcified atherosclerotic plaque of the three-vessel aortic arch with patent origins of the branch vessels. Innominate artery: The origin of the innominate is not included within the [id number]. Atherosclerotic plaque of the otherwise patent visualized portion of the innominate. Right subclavian artery: Extensive tortuosity and irregularity of the right subclavian artery with atherosclerotic plaque. Right common carotid artery: Mild calcified atherosclerotic plaque throughout the common carotid. Right internal and external carotid arteries: Calcified and noncalcified atherosclerotic plaque at the carotid bifurcation. No significant stenosis results. The remainder of the right internal carotid artery is widely patent as is the external carotid artery beyond its proximal 1 cm. Left common carotid artery: Mild calcified and noncalcified atherosclerotic plaque. Left internal and external carotid arteries: Plaque at the carotid bifurcation does not result in significant stenosis. Tortuosity of the proximal left ICA. Left ECA widely patent. Left subclavian artery: Significant atherosclerotic plaque and kinking of the proximal left subclavian artery resulting in 50% luminal stenosis. Vertebral arteries: Left dominant vertebral artery. Origins and courses of the bilateral vertebral arteries patent. Other: Limited intracranial evaluation within normal limits. Soft tissues of the neck normal allowing for the phase of contrast. Degenerative changes of the cervical spine. Interlobular septal thickening and mosaic attenuation of the lung apices. IMPRESSION: 1. Significant atherosclerotic plaque burden including noncalcified atherosclerotic plaque. However, no significant stenosis of the cervical arteri es. 2. The most significant site of stenosis is at the origin and proximal portion of the left subclavian artery with up to 50% stenosis. This is largely due to kinking. Electronically signed by: Chuck Grande M.D. 11/30/2018 7:[address] abd pelvis IV con only CLINICAL HISTORY: 88 years-old Female presenting with Pt c/o emesis, confusion, recent stroke, altered mental status. TECHNIQUE: Multidetector CT of the abdomen and pelvis was performed after the administration of intravenous contrast. IV contrast: 120 mL of Optiray 320. One or more dose lowering techniques were used consistent with the principles of ALARA (as low as reasonably achievable), including automatic exposure control, mA or kV adjustment to individual patient size, and/or use of iterative re construction. COMPARISON: None. CT DOSE (mGy.cm): The estimated cumulative dose is 2074.02 mGy.cm. FINDINGS: Gas Leak Tester topogram: Unremarkable. Lung bases: Multichamber enlargement of the heart. Coronary artery, aortic valve, and mitral annular calcification. Small bilateral pleural effusions, which may be loculated on the right. Prominent bandlike opacities at the lung bases likely extensive atelectasis. Mosaic attenuation and interlobular septal thickening. Liver: Normal morphology. Vague hypodensity along the fissure for the ligamentum teres, likely perfusional variation or focal fat. Patent hepatic vasculature. Biliary: No intrahepatic or extrahepatic biliary ductal dilatation. Gallstones noted at the fundus intensely also with adenomyomatosis. Pancreas: Moderate parenchymal atrophy. Spleen: Normal. Adrenal glands: Normal. Kidneys and ureters: Right greater than left renal atrophy, which is severe on the right. Urothelial thickening evident, right greater than left. No hydron ephrosis or nephrolithiasis. Ureters nondistended. Bladder: Incompletely evaluated secondary to underdistention. Pelvic organs: Uterus surgically absent. No adnexal masses. Bowel: Diverticulosis of the mid to distal sigmoid colon without wall thickening or pericolonic inflammatory change. No bowel obstruction. Distal small bowel is significantly decompressed. The appendix is not confidently visualized though no inflammatory changes are noted in the region of the cecum. Moderate hiatal hernia, which appears to be a sliding-type. Peritoneal cavity: No free fluid or intraperitoneal gas. Lymph nodes: No enlarged lymph nodes in the abdomen or pelvis. Vasculature: Dense atherosclerotic calcified plaque throughout the abdominal aorta and its major branch vessels. The abdominal aorta is normal in caliber although tortuous. IVC patent. Abdominal wall: Normal. Musculoskeletal: Degenerative changes of the spine. Chronic fracture of the left inferior pubic ramus. Osteopenia suspected. IMPRESSION: 1. No acute intra-abdominal pathology. 2. Chronic findings as above, most notably severe right renal atrophy, cholelithiasis, diverticulosis coli, and moderate hiatal hernia. 3. Extensive bibasilar atelectasis and congestive change at the lung bases. Developing pulmonary edema not excluded. 4. Chronic fracture of the left inferior pubic ramus. Electronically signed by: Chuck Grande M.D. 11/30/2018 7:16 PM ECG Data Attestation: I personally reviewed and interpreted this ECG as follows: Indication: vomiting Rate (beats per minute): 110 Rhythm: atrial fibrillation (with RVR) Findings: + PVC; no ST depression and no ST elevation Comparison ECG Date: from (10/19/2018) Change: no significant change Blood Pressure Blood Pressure Findings: Elevated blood pressure Blood Pressure Disposition: further management by hospitalist [facility] Narrative This is an 88-year-old female who presents emergency department vomiting and with what appears to be hypertensive urgency. She was given IV doses of labetalol here in the emergency department. She was also given Zofran. Due to the vomiting she was sent for a CAT scan of the head as well as abdomen and pelvis. This did not show any acute process. Because of the patient's altered mental status I did discuss the case with the hospitalist service who agreed to admit the patient. Patient and family were in agreement with the treatment plan. Impression & Plan Hypertensive urgency, Vomiting, UTI (urinary tract infection) Critical Care Time I have personally spent greater than 30 minutes of critical care time in the direct management of this patient. This includes bedside care, interpretation of diagnostic studies, and testing, discussion with consultants, patient, and family members, and other required patient management activities. This 30 minutes is in excess of all separately billable procedures. Discharge Plan Visit Data *Final* Discharge Date/Time: 11/30/18 21:37 Chief Complaint: Vomiting Stated Complaint: vomiting, SPIT UP, PAIN IN FRONT OF HEAD ED Provider: Juanjo Lock Discharge Problem: Hypertensive urgency, Vomiting, UTI (urinary tract infection) Patient Disposition: Admitted As Inpatient Discharge Instructions Interventions: ED Discharge Assessment Last Done: 11/30/18 21:37 The scribe's documentation has been prepared under my direction and personally reviewed by me in its entirety. I confirm that the note above accurately reflects all work, treatment, procedures, and medical decision making performed by me.
[2018-12-01] MEDS: METOPROLOL TARTRATE 1 MG/ML VIAL IV SCH ×5 (04:19→21:03)
[2018-12-01] MEDS: FAMOTIDINE 20 MG in SYRINGE 3 ML IV SCH ×2 (04:19→17:13)
--- NOTE | 2018-12-01 07:35 | Family Medicine Progress Note ---
Date of Service December 01, 2018 Assessment & Plan (1) Hypertensive urgency: Ms. Lozada is a 88yo female with a PMHx significant for recent L frontal MCA stroke who presented with a 1 day history of repeated bouts of emesis, fluctuating mental status and was found to be in hypertensive urgency with a UTI on admission. Acute Encephalopathy -Slightly improving as the day progresses. -Per family pt has been having a fluctuating course since her stroke about 2 months ago. -No evidence of baseline dementia. -Received Ativan in the ED upon admission, likely contributory. -Possible delirium component? -Extensive imaging of the head (Head CT and CTA, Neck CTA, Brain MRI) argues against any acute stroke-like cause. -No more Ativan use, consider low dose Haldol IF needed at all. -Will continue to monitor and reorient as necessary. -KUB ordered for potential bowel cause- showed no pathological bowel dilatation. -Consult neurology for the new onset headache after stroke. Hypertensive Urgency s/p recent stroke -Improving to the 150s currently from highs of 226. -Continue Lopressor 5mg IV q4h with hold parameters -Target to normal BP range given no concern for acute stroke currently. -No evidence of end organ damage/significant changes to baseline organ function to warrant dx of hypertensive emergency at this time. -Will continue to monitor. Possible UTI -Pt was seen on 11/28 with UA showing trace leukocyte esterase. On 11/30 UA showed protein with trace glucose, ketones, blood. -Received 1 dose of Rocephin 1g in ED as possible cause of altered mental status. Scheduled to continue daily given continued AMS. -Will reassess need daily. -Urine Cx pending. Atrial Fibrillation -Pt with historical dx, on Eliquis at home. -CHADsVasc score of at least 5, requiring anticoagulation (age, sex, Hx of stroke) -Currently in a fib with EKG from 11/30 showing atrial fibrillation with rvr, ventricular rate 110, qtc 441. -Started on a heparin drip. -Also on Lopressor as above for HTN -Will continue to monitor. Vomiting/Dehydration -Likely due to viral illness -Less likely stroke or UTI related -UA with increased specific gravity and ketones -On IV fluids CKD Stage 4 -Baseline Cr of 1.98 -Elevated to 2 today -Will continue to monitor GERD -Continue famotidine 20mg IV q12hrs CODE Status: Full DVT Prophylaxis: IV Heparin Supervising Physician Co-Signing Physician Notes Resident Physician Supervision Note: I independently interviewed and examined the patient and verified the adames history and physical, reviewed labs and image studies, discussed the case with the resident Dr. Riley and agree with the findings and care plan. Subjective would awaken to verbal and physical stimuli this morning before falling back asleep within a few minutes. Of note she received a dose of Ativan about 9PM last night in the ED. Family at bedside this morning during rounds and provided additional Hx. BP high of 171 systolic overnight. Review of Systems Unobtainable due to cognitive status Physical Exam Vital Signs (Past 24 Hours): Last Vital Signs Temp 36.8 C 12/01/18 07:10 Pulse 105 H 12/01/18 07:10 Resp 17 12/01/18 07:10 BP 147/81 H 12/01/18 07:10 Pulse Ox 99 12/01/18 07:10 General: Sleeping and arousable to loud verbal and physical stimuli. HEENT: NC/AT Chest: Nontender to palpation. CV: Irregularly irregular rate Resp: Breath sounds clear bilaterally on front, no increased effort of breathing. Abdomen: Soft, nontender, nondistended. No guarding. No organomegaly appreciated. Extremities: No edema. Results & Data Laboratory Results Laboratory Results - last 24 hr 11/30/18 11/30/18 11/30/18 18:32 18:32 18:32 WBC 7.08 RBC 5.31 Hgb 15.0 POC Hgb Hct 45.2 POC Hct MCV 85.1 MCH 28.2 MCHC 33.2 RDW Std Deviation 53.2 H RDW Coeff of Jennifer 17.1 H Plt Count 273 MPV 10.0 Immature Gran % (Auto) 0.1 Neut % (Auto) 74.6 Lymph % (Auto) 15.1 Nicholas % (Auto) 9.3 Eos % (Auto) 0.6 Baso % (Auto) 0.3 Immature Gran # (Auto) 0.01 Neut # (Auto) 5.28 Lymph # (Auto) 1.07 L Nicholas # (Auto) 0.66 H Eos # (Auto) 0.04 Baso # (Auto) 0.02 PT 11.2 INR 1.1 APTT 24.8 PTT Ratio 0.9 POC Sodium Sodium 141 POC Potassium Potassium 3.4 L POC Chloride Chloride 107 Carbon Dioxide 23 POC Total CO2 Anion Gap 11.0 POC Anion Gap POC BUN BUN 21 H Creatinine 1.98 H POC Creatinine Est Cr Clr Drug Dosing 15.2 Est GFR ( Amer) 25.3 Est GFR (Non-Af Amer) 21.9 BUN/Creatinine Ratio 10.8 Glucose 167 H POC Glucose (other) Calcium 10.9 H POC Ioniz Calcium Br[place] Magnesium 1.7 L Total Bilirubin 1.1 H AST 24 ALT 36 Alkaline Phosphatase 115 Total Creatine Kinase 46 CK-MB (CK-2) 1.9 CK/CKMB % Calc 4.1 H Troponin I 0.017 Total Protein 7.8 Albumin 3.9 Globulin 3.9 Albumin/Globulin Ratio 1.0 Urine Color Urine Appearance Urine pH Ur Specific [place] Urine Protein Urine Glucose (UA) Urine Ketones Urine Blood Urine Nitrite Urine Bilirubin Urine Urobilinogen Ur Leukocyte Esterase Urine WBC (Auto) Urine RBC (Auto) U Hyaline Cast (Auto) U Epithel Cells (Auto) Urine Bacteria (Auto) 11/30/18 11/30/18 12/01/18 18:39 19:15 09:22 WBC 8.17 RBC 4.37 Hgb 12.3 POC Hgb 16.3 H Hct 37.2 POC Hct 48 H MCV 85.1 MCH 28.1 MCHC 33.1 RDW Std Deviation 53.8 H RDW Coeff of Jennifer 17.3 H Plt Count 248 MPV 10.3 Immature Gran % (Auto) 0.1 Neut % (Auto) 77.5 Lymph % (Auto) 12.4 Nicholas % (Auto) 9.8 Eos % (Auto) 0.1 Baso % (Auto) 0.1 Immature Gran # (Auto) 0.01 Neut # (Auto) 6.33 Lymph # (Auto) 1.01 L Nicholas # (Auto) 0.80 H Eos # (Auto) 0.01 Baso # (Auto) 0.01 PT INR APTT PTT Ratio POC Sodium 142 Sodium POC Potassium 3.4 Potassium POC Chloride 107 Chloride Carbon Dioxide POC Total CO2 22 L Anion Gap POC Anion Gap 17.0 POC BUN 22 H BUN Creatinine POC Creatinine 1.9 H Est Cr Clr Drug Dosing Est GFR ( Amer) Est GFR (Non-Af Amer) BUN/Creatinine Ratio Glucose POC Glucose (other) 171 H Calcium POC Ioniz Calcium Brion[place] 1.38 H Magnesium Total Bilirubin AST ALT Alkaline Phosphatase Total Creatine Kinase CK-MB (CK-2) CK/CKMB % Calc Troponin I Total Protein Albumin Globulin Albumin/Globulin Ratio Urine Color Yellow Urine Appearance Clear Urine pH 6.5 Ur Specific [place] 1.043 H Urine Protein 3+ H Urine Glucose (UA) Trace H Urine Ketones Trace H Urine Blood Trace H Urine Nitrite Negative Urine Bilirubin Negative Urine Urobilinogen Negative Ur Leukocyte Esterase Negative Urine WBC (Auto) 1-5 Urine RBC (Auto) 0-4 U Hyaline Cast (Auto) 1-5 U Epithel Cells (Auto) 10-20 H Urine Bacteria (Auto) Negative 12/01/18 12/01/18 09:22 12:06 WBC RBC Hgb POC Hgb Hct POC Hct MCV MCH MCHC RDW Std Deviation RDW Coeff of Jennifer Plt Count MPV Immature Gran % (Auto) Neut % (Auto) Lymph % (Auto) Nicholas % (Auto) Eos % (Auto) Baso % (Auto) Immature Gran # (Auto) Neut # (Auto) Lymph # (Auto) Nicholas # (Auto) Eos # (Auto) Baso # (Auto) PT INR APTT 23.8 PTT Ratio 0.9 POC Sodium Sodium 144 POC Potassium Potassium 4.2 D POC Chloride Chloride 113 H Carbon Dioxide 21 POC Total CO2 Anion Gap 10.0 POC Anion Gap POC BUN BUN 23 H Creatinine 2.02 H POC Creatinine Est Cr Clr Drug Dosing 14.9 Est GFR ( Amer) 24.7 Est GFR (Non-Af Amer) 21.3 BUN/Creatinine Ratio 11.5 Glucose 128 H POC Glucose (other) Calcium 10.0 POC Ioniz Calcium [place] Magnesium Total Bilirubin AST ALT Alkaline Phosphatase Total Creatine Kinase CK-MB (CK-2) CK/CKMB % Calc Troponin I Total Protein Albumin Globulin Albumin/Globulin Ratio Urine Color Urine Appearance Urine pH Ur Specific [place] Urine Protein Urine Glucose (UA) Urine Ketones Urine Blood Urine Nitrite Urine Bilirubin Urine Urobilinogen Ur Leukocyte Esterase Urine WBC (Auto) Urine RBC (Auto) U Hyaline Cast (Auto) U Epithel Cells (Auto) Urine Bacteria (Auto) Medications Administered Home Medications albuterol sulfate [ProAir HFA] 2 puff INHALATION Q6H PRN 10/19/18 [History Confirmed 11/30/18] budesonide-formoterol 2 puff INHALATION BID 10/19/18 [History Confirmed 11/30/18] calcium carbonate [Calcium 500] 500 mg PO DAILY 10/19/18 [History Confirmed 11/30/18] pantoprazole 40 mg PO DAILY 10/19/18 [History Confirmed 11/30/18] apixaban [Eliquis] 2.5 mg PO Q12 11/06/18 [History Confirmed 11/30/18] acetaminophen-caffeine [Excedrin Tension Headache] 2 tab PO AMPM 11/30/18 [History Confirmed 11/30/18] amitriptyline 10 mg PO HS 11/30/18 [History Confirmed 11/30/18] atorvastatin 0 mg PO DAILY 11/30/18 [History Confirmed 11/30/18] Active Medications Ceftriaxone Sodium 1,000 mg/ (Dextrose) 60 mls @ 100 mls/hr IV Q24H RHONDA Stop: 12/04/18 20:35 Sodium Chloride (Nss 1000ml) 1,000 mls @ 80 mls/hr IV .[id number] RHONDA Stop: 12/30/18 20:59 Last Admin: 12/01/18 09:13 Dose: 80 mls/hr Documented by: Famotidine 20 mg/ Syringe 5 mls @ 2.5 mls/min IV Q12H RHONDA Stop: 12/31/18 03:59 Last Admin: 12/01/18 04:19 Dose: 2.5 mls/min Documented by: Heparin Sodium/Dextrose (Heparin Sodium/Dextrose) 25,000 units in 500 mls @ 19 mls/hr IV .Q24H RHONDA; Protocol Stop: 12/31/18 11:29 Last Admin: 12/01/18 13:02 Dose: 950 units/hr, 19 mls/hr Documented by: Ioversol (Optiray 320 125ml) 120 ml IV ONCE PRN PRN Reason: Interaction Checking Stop: 12/04/18 19:03 Last Admin: 11/30/18 19:04 Dose: 120 ml Documented by: Metoprolol Tartrate (Lopressor) 5 mg IV Q4 RHONDA Stop: 12/31/18 03:59 Last Admin: 12/01/18 13:07 Dose: 5 mg Documented by: Ondansetron HCl (Zofran) 4 mg IV Q6H PRN PRN Reason: Nausea Stop: 12/30/18 22:24 Resident Activity Tracking Resident Involvement: Resident Care Provided Care Provided: Adult Hospital Medicine
[2018-12-01] MEDS: SODIUM CHLORIDE 0.9% 1000ML 1,000 ML IV SCH ×2 (09:13→20:57)
[2018-12-01 09:43] LABS: Basophils # (auto) 0.01 K/uL (0-0.2); Basophils % (auto) 0.1 %; Eosinophils # (auto) 0.01 K/uL (0-0.5); Eosinophils % (auto) 0.1 %; Hematocrit (blood only) 37.2 % (37-47); Hemoglobin 12.3 g/dL (12.0-16.0); Immature Granulocytes # (auto) 0.01 K/uL (0.00-0.02); Immature Granulocytes % (auto) 0.1 %; Lymphocytes # (auto) 1.01 K/uL (1.2-3.4); Lymphocytes % (auto) 12.4 %; Mean Corpuscular Hgb Conc 33.1 g/dL (32-36); Mean Corpuscular Volume 85.1 fL (80-100); Mean Platelet Volume 10.3 fL (7.4-10.4); Monocytes % (auto) 9.8 %; Neutrophils # (auto) 6.33 K/uL (1.4-6.5); Neutrophils % (auto) 77.5 %; Platelet Count 248 K/uL (130-400); RDW Coefficient of Variation 17.3 % (11.5-14.5); RDW Standard Deviation 53.8 fL (36.4-46.3); Red Blood Count 4.37 M/uL (4.2-5.4); White Blood Count 8.17 K/uL (4.8-10.8)
[2018-12-01 10:01] LABS: BUN Creatinine Ratio 11.5 (10-20); Creatinine Clr Calc Pharmacy 14.9 ml/min; Est GFR (African American) 24.7; Est GFR (Non-African American) 21.3; Potassium 4.2 mmol/L (3.5-5.1)
[2018-12-01] MEDS ORDERED: Heparin IV Standard *NO* Bolus IV SCH (10:52)
--- NOTE | 2018-12-01 11:37 | XRay Report ---
XR KUB/Abdomen 1 view CLINICAL HISTORY: nausea/vomiting COMPARISON STUDY: CT scan dated 11/30/2018 FINDINGS: There is contrast within both renal collecting systems and bladder. There are extensive ath eromatous calcifications within the aorta and iliac vessels. There is no pathologic bowel dilatation. IMPRESSION: No evidence of pathologic bowel dilatation. Electronically signed by: Hugo Mcgregor M.D. 12/01/2018 11:36 AM
[2018-12-01 12:29] LABS: Partial Thromboplastin Ratio 0.9; Partial Thromboplastin Time 23.8 Seconds (21.0-31.0)
[2018-12-01] MEDS: Heparin Adult STANDARD Wt-Based Dextrose 5% 25,000 units/500 mL IV SCH (13:02)
[2018-12-01 20:21] LABS: Partial Thromboplastin Ratio 3.4
[2018-12-01 20:38] LABS: Partial Thromboplastin Time 91.5 Seconds (21.0-31.0)
[2018-12-01] MEDS: cefTRIAXone SODIUM 1,000 MG in DEXTROSE 5% 50 ML IV SCH (21:44)
[2018-12-02] MEDS: METOPROLOL TARTRATE 1 MG/ML VIAL IV SCH ×7 (00:07→23:39)
[2018-12-02 03:39] LABS: Partial Thromboplastin Ratio > 5.1
[2018-12-02 03:44] LABS: Partial Thromboplastin Time > 139.0 Seconds (21.0-31.0)
[2018-12-02] MEDS: FAMOTIDINE 20 MG in SYRINGE 3 ML IV SCH ×2 (03:56→16:14)
[2018-12-02 05:12] LABS: BUN Creatinine Ratio 12.7 (10-20); Creatinine Clr Calc Pharmacy 14.2 ml/min; Est GFR (African American) 23.3; Est GFR (Non-African American) 20.1; Partial Thromboplastin Ratio 3.7; Potassium 4.3 mmol/L (3.5-5.1)
[2018-12-02 05:23] LABS: Partial Thromboplastin Time 100.5 Seconds (21.0-31.0)
[2018-12-02 05:30] LABS: Albumin Globulin Ratio 0.8 (0.9-2); Bilirubin,Total 0.4 mg/dl (0.2-1); Globulin 3.7 gm/dl (2.5-4.0); Total Protein 6.7 gm/dl (6.4-8.2)
[2018-12-02 06:32] LABS: Partial Thromboplastin Ratio 2.5
[2018-12-02 06:36] LABS: Partial Thromboplastin Time 67.1 Seconds (21.0-31.0)
--- NOTE | 2018-12-02 08:40 | Neurology Consultation ---
Date of Consultation December 02, 2018 Assessment & Plan (1) Acute encephalopathy: The patient has a significant acute encephalopathy, of uncertain etiology. She on examination is tachypneic and tachycardic not following commands or speaking well. Additionally she has no meningeal signs, fever, elevated white count or other signs of infection. There is a questionable UTI but the culture is not back yet.On examination she has no focal neurologic signs or upper motor neuron signs. Etiology of this acute encephalopathy may be related to hypertension more than anything else. She does have a history of migraines starting October 29 which probably coincides to the elevated blood pressure. The confusion is always linked to headaches. Because she cannot speak I cannot ascertain whether not she has a headache this morning. There does not seem to be any signs of central nervous system infection to account for encephalopathy and she has no new stroke or structural lesions on MRI compared to her previous MRI from September. This small left frontal stroke should not give encephalopathy. She has no other metabolic abnormalities and there are no medications/toxins which could be doing this. She was on a very low dose of amitriptyline prior to admission but this has been discontinued. Sometimes elderly individuals do not tolerate amitriptyline. An EEG was obtained this morning and showed mild generalized slowing consistent with encephalopathy. There was nothing focal and there were no potentially epileptogenic discharges (see report). Her mental status seems to wax and wane, improving when her blood pressure is better and the headache resolves. (2) Hypertensive urgency: Patient has a history of hypertension. At the time of her stroke in late September she was significantly hypotensive so 2 antihypertensives were discontinued. Within a couple of weeks after this she started getting hypertensive again and has been this way since. She has a wide pulse pressure so it is a bit tricky to treat her blood pressure without bottoming it out. She was significantly hypertensive on admission correlating with the migraine and acute confusion. (3) Migraines: Patient has a history of migraine headaches in her early 20s. These resolved until the last 4-5 weeks. I believe these migraines currently are triggered by her acute Hypertension. (4) Acute ischemic left MCA stroke: Patient has a history of relatively small left frontal stroke October 19. This was embolic from the heart with her atrial fibrillation. The patient also has moderate old small vessel ischemic changes consistent with advanced age and her history of hypertension and dyslipidemia. Anticoagulation will prevent emboli but will not prevent old small vessel isch emic disease. (5) Atrial fibrillation: Patient has atrial fibrillation chronically. When able to take p.o. she will be on Eliquis. Currently she is on heparin. Recommendations: 1. Treat hypertension as you are doing. My drug of choice to prevent vasospasm/migraines with hypertension is verapamil. Perhaps we can crush immediate release verapamil when she is able to take p.o. using a low dose of 60-80 milligrams twice daily. We can titrate this as needed. Obviously we are aiming for a mean arterial pressure of approximately 95-100. If this does not work or we cannot give verapamil then low-dose lisinopril as an option 2. Avoid narcotics and benzodiazepines so as not to create any additional confusion/mental status changes 3. Avoid amitriptyline/tricyclic antidepressants in this age group. 4. Increase activity as able and she may benefit from physical therapy. 5. I would avoid triptans as needed for headaches (because of their vasospastic properties) until such time as her blood pressure is controlled and she does not have confusion. Excedrin Tension seem to of work before and this could be given if she can take p.o., as needed. 6. I do not see a need for a lumbar puncture at this time. I will follow. Overall I spent a total of 150 minutes with this case including review of records, direct evaluation the patient at bedside, review of MRI and CT films, and discussion of the case with the patient, her daughter and both over the phone and at bedside, clinical staff, Dr. Madrigal, and Dr. Cbourn, including differential diagnosis and treatment options. History of Present Illness Reason for Consultation: Patient is an 88-year-old, who I was asked to see the request of Dr. Coburn, for neurologic consultation regarding acute encephalopathy and headaches. Requesting Physician: Dr. Coburn Attending Physician: Alison Coburn MD History of Present Illness Much of the history was obtained from the patient's daughter and who I spoke with via telephone at 1st. Patient has a history of migraine headaches in her 20s ending by her late 20s. She really did not have any significant headaches after this. She has a history of hypertension, dyslipidemia, and atrial fibrillation originally on Coumadin but with trouble maintaining correct anticoagulation. In early September, she tripped over the vacuum and hit her occipital head on the wall breaking the dry wall. There was no loss of consciousness but she was stunned. She had no headaches following this and seemingly was doing fairly well. On October 19 she was admitted with confusion and speech issues. She was diagnosed with an acute left frontal ischemic stroke and saw Dr. Dejesus. This stroke was likely cardioembolic from her atrial fibrillation and a subtherapeutic INR. Echocardiogram was largely unremarkable and carotid ultrasound was unremarkable. MR angiography of the head showed no significant stenoses. She had a bit of mixed aphasia but this improved by at discharge. On discharge she was put on Eliquis but because of low blood pressure her two antihypertensives were discontinued. On October 29, 2018, she started getting migraine headaches. These were on the right side radiating from occipital to frontal accompanied by nausea, photophobia, sonophobia, and occasional vomiting. Because of her medical conditions certain medications could not be used. She took 2 Excedrin Tension tablets twice daily and this help prevent headaches which were occurring about every day. On November 06, she came to the emergency room with a significant headache and her blood pressure was elevated at 180 5/85. CT scan of the head was unremarkable and she was discharged home. She continued to get episodes of headache and confusion. Sometime she could get a headache without confusion but the only time she got confusion was with headaches. Occasionally she might have a left frontal headache which was not migrainous in nature. She came to the emergency room November 30 with pain above her left eye, nausea vomiting, and more significant confusion. She was not recognizing people. She has been on amitriptyline 10 milligrams at bedtime, at that time. On November 30 she arrived at 181 with a temperature 36.4, pulse 102, respiratory rate 20, blood pressure 212/102, and O2 saturation 97 percent. Exam was noted for confusion. CT scan of the head was unremarkable for acute changes. Chest x-ray showed some cardiomegaly and right-sided atelectasis. CBC was unremarkable with a white count of 7. Chem profile showed increased BUN and creatinine and glucose of 167 and a magnesium of 1.7. Urinalysis was largely unremarkable although urine culture is pending and there was a suspicion of UTI. TSH was normal at 2.1 and hemoglobin A1c was elevated at 6.6. Blood pressure has been labile throughout hospitalization. CT angiography of the neck showed increased plaque diffusely without significant stenoses although the proximal left subclavian was [address] angiography of the head revealed an irregularity in the left P2 segment of the posterior cerebral artery but with no other significant stenoses. MRI of the brain showed the involving small left frontal stroke with diffuse white matter changes and atrophy consistent with age. Since admission she has had no seizure activity. Her mental status has waxed and waned and her blood pressure and headaches have been variable as well. Allergies Allergy/AdvReac Type Severity Reaction Status Date / Time aspirin Allergy Unknown Verified 11/30/18 18:59 Penicillins Allergy Unknown Verified 11/30/18 18:59 Home Medications Home Medications Medication Instructions Recorded Confirmed Type albuterol sulfate [ProAir HFA] 2 puff INHALATION Q6H PRN 10/19/18 11/30/18 History budesonide-formoterol 2 puff INHALATION BID 10/19/18 11/30/18 History calcium carbonate [Calcium 500] 500 mg PO DAILY 10/19/18 11/30/18 History pantoprazole 40 mg PO DAILY 10/19/18 11/30/18 History apixaban [Eliquis] 2.5 mg PO Q12 11/06/18 11/30/18 History acetaminophen-caffeine [Excedrin 2 tab PO AMPM 11/30/18 11/30/18 History Tension Headache] amitriptyline 10 mg PO HS 11/30/18 11/30/18 History atorvastatin 0 mg PO DAILY 11/30/18 11/30/18 History Patient History Medical History Atrial fibrillation (Chronic) GERD (gastroesophageal reflux disease) (Chronic) Hypertension (Chronic) Dyslipidemia (Chronic) Chronic anticoagulation (Chronic) History of pulmonary embolism (Chronic) Chronic bronchitis (Chronic) CHF (congestive heart failure) (Chronic) Surgical History H/O: hysterectomy (Resolved) History of tonsillectomy Family History Mother , age 71 of cancer Breast cancer Father , age 85 of intra cerebral hemorrhage Intracerebral hemorrhage Other Hypertension Social History Preferred Language: Icelandic Communication Ability: Impaired Communication Ability Comment: pt has been sedated for upcoming MRI Step Finisher Required: No Beliefs That Will Affect Care: Restoration marital status: Current Living Situation: Spouse and Family Current Living Situation Comment: loves w/ spouse and son current occupational status: retired 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 Other Information That Helps Us Care for You: No Feels Safe at Home: Yes Safety Concerns: Feels Safe At This Time Smoking Status: Never smoker Hx Alcohol Use: No Hx Substance Use: No Review of Systems Patient is unable to give a review of systems because she is acutely confused/encephalopathic. She does not appear to be in pain and she is not grimacing. She will not answer questions. Physical Exam Vital Signs (Past 24 Hours): Last Vital Signs Temp 36.8 C 12/02/18 07:25 Pulse 80 12/02/18 07:25 Resp 20 12/02/18 07:25 BP 185/85 H 12/02/18 07:25 Pulse Ox 96 12/02/18 07:25 Physical Exam: The patient is right-handed. During my exam blood pressure is 185/85, pulse is 90 and regular, respiratory rate is 52 and somewhat irregular with deep breathing. O2 saturation is 99 percent. She is afebrile. The patient is sleepy but arousable with voice and gentle shaking. She will make brief eye contact and smile but then will look away and can drifts back to sleep. She will not follow one-step commands. Speech is jumbled and occasionally we can hear a short word intelligibly. She makes some effort to speak and answer questions but not all the time. General appearance and grooming are normal. Since she is acutely confused and not answering questions memory cannot be ascertained. The discs are sharp with positive venous pulsations bilaterally. There are no exudates, hemorrhages, or blood vessel changes seen. Pupils are 4 mm bilaterally and reactive to light. Extraocular eye muscles are intact without nystagmus. Visual acuity and visual unger seem normal grossly to confrontation. There are no deficits to sensation in the face in all 3 distributions of the fifth cranial nerve bilaterally. Corneal reflexes are positive bilaterally. Facial strength and symmetry was normal bilaterally. Hearing seems intact grossly to voice bilaterally. Palate moves well without asymmetry. There is normal sternocleidomastoid and trapezius (shoulder shrug) strength bilaterally. Tongue is midline with good strength bilaterally. Neck has a full range of motion without discomfort. There are no cervical bruits bilaterally. There are no cranial or ocular bruits. Heart is without murmur. There is a regular rhythm and rate. Cervical, thoracic, and lumbar spine are nontender to palpation. Gait and stance cannot be tested as she is too confused. Attempts to sit her upper met with resistance and she lays back down. She will not cooperate with outstretched arms. There are no resting, postural, or action tremors otherwise. There is no ataxia noted with spontaneous movements of her limbs. Motor strength is 5/5 diffusely in the arms bilaterally including deltoids, biceps, triceps, brachioradialis, wrist flexors and extensors, data migration consultant, and intrinsic hand muscles. Although she does not follow commands well she does resist movements to me. Motor strength is 5/5 diffusely in the legs bilaterally including hip flexors, quadriceps, hamstrings, gastrocnemius, tibialis anterior, tibialis posterior, and Peroneii muscles bilaterally. The limbs have good tone without rigidity or spasticity. There is no atrophy noted in the muscles. Muscle bulk is normal, there is no obvious tenderness to palpation, no myotonia to percussion, and no fasciculations seen. Sensory examination seems intact and she withdraws quickly to light stimuli in all 4 limbs. Reflexes are 1/4 in the biceps, triceps, brachioradialis, quadriceps, and Achilles tendons bilaterally. Toes are distinctly downgoing with plantar stimulation bilaterally. Peripheral pulses are present and of normal quality distally in all 4 limbs. There is no peripheral edema noted in the limbs. Results & Data Diagnostic Findings MR brain wo con CLINICAL HISTORY: 88 years-old Female presenting with altered mental state, evolving subacute CVA. TECHNIQUE: Multisequence, multiplanar MR imaging of the brain was performed without the use of intravenous contrast. IV contrast: None. COMPARISON: Noncontrast CT performed earlier today.. FINDINGS: Localizer images: Unremarkable. Several sequences are degraded by motion artifact. This mildly limits diagnostic sensitivity the exam. Normal midline sagittal structures. Proportional ventricular and sulcal prominence, likely age-related parenchymal volume loss. No hemorrhage. Periventricular white matter T2/FLAIR hyperintensity, nonspecific though likely chronic small vessel ischemic change. Subacute infarct in the left frontal lobe with heterogeneous diffusion signal intensity and T2 hyperintensity. No mass effect though expected dilatation of the sulci not yet apparent. No mass effect or midline shift. No extra-axial fluid collection. T2 skull base flow voids preserved. Bone marrow signal intensity within the calvarium within normal limits. IMPRESSION: Several sequences are degraded by motion artifact. This mildly limits diagnostic sensitivity the exam. 1. Subacute left frontal infarct. No hemorrhagic transformation. 2. Chronic small vessels ischemic change. No acute intracranial pathology. Electronically signed by: Chuck Grande M.D. 11/30/2018 10:10 PM
[2018-12-02] MEDS: SODIUM CHLORIDE 0.9% 1000ML 1,000 ML IV SCH ×2 (08:54→21:31)
--- NOTE | 2018-12-02 09:25 | Family Medicine Progress Note ---
Date of Service December 02, 2018 Assessment & Plan (1) Acute encephalopathy: Ms. Lozada is a 88yo female with a PMHx significant for recent L frontal MCA stroke who presented with a 1 day history of repeated bouts of emesis, fluctuating mental status and was found to be in hypertensive urgency with a UTI on admission. Acute Encephalopathy -Pt with waxing and waning course of alertness currently. -Extensive imaging of the head (Head CT and CTA, Neck CTA, Brain MRI) argues against any acute stroke-like cause. -Neuro- EEG done - suggestive of encephalopathy. Verapamil for migraine prophylaxis and will help with BP control, no LP, some benefit from PT. Excedrin Migraine for headaches once she can have oral meds. -No more Ativan use, consider low dose Haldol IF needed at all. -Will continue to monitor and reorient as necessary. -Since more alert - start oral meds. get swallowing eval. Hypertensive Urgency -s/p recent stroke -BPs up and down with wide variance. -Start Verapamil per Neuro recs -Continue Lopressor 5mg IV q4h with hold parameters in the interim -Target to normal BP range given no concern for acute stroke currently. -No evidence of end organ damage/significant changes to baseline organ function to warrant dx of hypertensive emergency at this time. -Will continue to monitor. Possible UTI -Pt was seen on 11/28 with UA showing trace leukocyte esterase. On 11/30 UA showed protein with trace glucose, ketones, blood. -Received 1 dose of Rocephin 1g in ED as possible cause of altered mental status. Scheduled to continue daily given continued AMS. -Urine Cx pending- prelim no growth. -Continue Rochephin until final/3 days. Atrial Fibrillation -Pt with historical dx, on Eliquis at home. -CHADsVasc score of at least 5, requiring anticoagulation (age, sex, Hx of stroke) -Currently in a fib with EKG from 11/30 showing atrial fibrillation with rvr, ventricular rate 110, qtc 441. -Currently on a heparin drip. Consider NOAC/warfarin switch once able to swallow w/o risk of aspiration -Continue lopressor Vomiting/Dehydration -Likely due to viral illness -Less likely stroke or UTI related -UA with increased specific gravity and ketones -Cont IV fluids CKD Stage 4 -Baseline Cr of 1.98 -Slowly climbing, 2.12 today. -Will continue to monitor GERD -Continue famotidine 20mg IV q12hrs FEN- IVF CODE Status: Full DVT Prophylaxis: IV Heparin Supervising Physician Co-Signing Physician Notes Resident Physician Supervision Note: I independently interviewed and examined the patient and verified the adames history and physical, reviewed labs and image studies, discussed the case with the resident Dr. Riley and agree with the findings and care plan. Subjective Ms. Lozada was a bit more responsive this morning. Attempting to follow commands and respond verbally when asked questions. Review of Systems Unobtainable due to cognitive status Physical Exam Vital Signs (Past 24 Hours): Last Vital Signs Temp 36.8 C 12/02/18 07:25 Pulse 90 12/02/18 08:50 Resp 20 12/02/18 07:25 BP 185/85 H 12/02/18 08:50 Pulse Ox 96 12/02/18 07:25 General: Awake. HEENT: NC/AT Chest: Nontender to palpation. CV: Irregularly irregular rate Resp: Breath sounds clear bilaterally on front, no increased effort of breathing. Abdomen: Soft, nontender, nondistended. No guarding. No organomegaly appreciated. Extremities: No edema. Results & Data Laboratory Results Laboratory Results - last 24 hr 12/01/18 12/02/18 12/02/18 19:30 02:54 04:37 APTT 91.5 H* > 139.0 H* PTT Ratio 3.4 > 5.1 Sodium 145 Potassium 4.3 Chloride 115 H Carbon Dioxide 22 Anion Gap 8.0 BUN 27 H Creatinine 2.12 H Est Cr Clr Drug Dosing 14.2 Est GFR ( Amer) 23.3 Est GFR (Non-Af Amer) 20.1 BUN/Creatinine Ratio 12.7 Glucose 120 H Calcium 10.0 Total Bilirubin 0.4 D AST 26 ALT 35 Alkaline Phosphatase 88 Total Protein 6.7 Albumin 3.0 L Globulin 3.7 Albumin/Globulin Ratio 0.8 L TSH 2.130 12/02/18 12/02/18 12/02/18 04:37 05:53 12:44 APTT 100.5 H* 67.1 H* 69.5 H* PTT Ratio 3.7 2.5 2.6 Sodium Potassium Chloride Carbon Dioxide Anion Gap BUN Creatinine Est Cr Clr Drug Dosing Est GFR ( Amer) Est GFR (Non-Af Amer) BUN/Creatinine Ratio Glucose Calcium Total Bilirubin AST ALT Alkaline Phosphatase Total Protein Albumin Globulin Albumin/Globulin Ratio TSH Medications Administered Home Medications albuterol sulfate [ProAir HFA] 2 puff INHALATION Q6H PRN 10/19/18 [History Confirmed 11/30/18] budesonide-formoterol 2 puff INHALATION BID 10/19/18 [History Confirmed 11/30/18] calcium carbonate [Calcium 500] 500 mg PO DAILY 10/19/18 [History Confirmed 11/30/18] pantoprazole 40 mg PO DAILY 10/19/18 [History Confirmed 11/30/18] apixaban [Eliquis] 2.5 mg PO Q12 11/06/18 [History Confirmed 11/30/18] acetaminophen-caffeine [Excedrin Tension Headache] 2 tab PO AMPM 11/30/18 [History Confirmed 11/30/18] amitriptyline 10 mg PO HS 11/30/18 [History Confirmed 11/30/18] atorvastatin 0 mg PO DAILY 11/30/18 [History Confirmed 11/30/18] Active Medications Ceftriaxone Sodium 1,000 mg/ (Dextrose) 60 mls @ 100 mls/hr IV Q24H RHONDA Stop: 12/04/18 20:35 Last Infusion: 12/01/18 22:41 Dose: Infused Documented by: Sodium Chloride (Nss 1000ml) 1,000 mls @ 80 mls/hr IV .[id number] RHONDA Stop: 12/30/18 20:59 Last Admin: 12/02/18 08:54 Dose: 80 mls/hr Documented by: Famotidine 20 mg/ Syringe 5 mls @ 2.5 mls/min IV Q12H RHONDA Stop: 12/31/18 03:59 Last Admin: 12/02/18 03:56 Dose: 2.5 mls/min Documented by: Heparin Sodium/Dextrose (Heparin Sodium/Dextrose) 25,000 units in 500 mls @ 14 mls/hr IV .Q24H RHONDA; Protocol Stop: 12/31/18 11:29 Last Titration: 12/02/18 07:13 Dose: 700 units/hr, 14 mls/hr Documented by: Acetaminophen (Ofirmev) 1,000 mg in 100 mls @ 400 mls/hr IV Q8H PRN PRN Reason: Headache Stop: 01/01/19 09:50 Last Infusion: 12/02/18 11:50 Dose: Infused Documented by: Ioversol (Optiray 320 125ml) 120 ml IV ONCE PRN PRN Reason: Interaction Checking Stop: 12/04/18 19:03 Last Admin: 11/30/18 19:04 Dose: 120 ml Documented by: Metoprolol Tartrate (Lopressor) 5 mg IV Q4 RHONDA Stop: 12/31/18 03:59 Last Admin: 12/02/18 12:01 Dose: 5 mg Documented by: Ondansetron HCl (Zofran) 4 mg IV Q6H PRN PRN Reason: Nausea Stop: 12/30/18 22:24
--- NOTE | 2018-12-02 09:36 | Procedure Note ---
EEG Procedure Note Date of Service December 02, 2018 Start / End Times Start Time: 825 End Time: [address] Quinn History 88-year-old with history of acute encephalopathy/confusion with abnormal involuntary movements. Home Medication List Home Medications Medication Instructions Recorded Confirmed Type albuterol sulfate [ProAir HFA] 2 puff INHALATION Q6H PRN 10/19/18 11/30/18 History budesonide-formoterol 2 puff INHALATION BID 10/19/18 11/30/18 History calcium carbonate [Calcium 500] 500 mg PO DAILY 10/19/18 11/30/18 History pantoprazole 40 mg PO DAILY 10/19/18 11/30/18 History apixaban [Eliquis] 2.5 mg PO Q12 11/06/18 11/30/18 History acetaminophen-caffeine [Excedrin 2 tab PO AMPM 11/30/18 11/30/18 History Tension Headache] amitriptyline 10 mg PO HS 11/30/18 11/30/18 History atorvastatin 0 mg PO DAILY 11/30/18 11/30/18 History Inpatient Medication List Ceftriaxone Sodium 1,000 mg/ (Dextrose) 60 mls @ 100 mls/hr IV Q24H [facility] Stop: 12/04/18 20:35 Last Infusion: 12/01/18 22:41 Dose: 0 mls/hr Documented by: [id number] Admin: 12/01/18 21:44 Dose: 100 mls/hr Documented by: [id number] Sodium Chloride (Nss 1000ml) 1,000 mls @ 80 mls/hr IV .[id number] [facility] Stop: 12/30/18 20:59 Last Admin: 12/02/18 08:54 Dose: 80 mls/hr Documented by: [id number] Infusion: 12/02/18 08:54 Dose: 80 mls/hr Documented by: [id number] Admin: 12/01/18 20:57 Dose: 80 mls/hr Documented by: [id number] Infusion: 12/01/18 20:57 Dose: 80 mls/hr Documented by: [id number] Admin: 12/01/18 09:13 Dose: 80 mls/hr Documented by: [id number] Infusion: 12/01/18 09:13 Dose: 80 mls/hr Documented by: [id number] Admin: 11/30/18 22:27 Dose: 80 mls/hr Documented by: [id number] Famotidine 20 mg/ Syringe 5 mls @ 2.5 mls/min IV Q12H [facility] Stop: 12/31/18 03:59 Last Admin: 12/02/18 03:56 Dose: 2.5 mls/min Documented by: [id number] Admin: 12/01/18 17:13 Dose: 2.5 mls/min Documented by: [id number] Admin: 12/01/18 04:19 Dose: 2.5 mls/min Documented by: [id number] Heparin Sodium/Dextrose (Heparin Sodium/Dextrose) 25,000 units in 500 mls @ 14 mls/hr IV .Q24H [facility]; Protocol Stop: 12/31/18 11:29 Last Titration: 12/02/18 07:13 Dose: 700 units/hr, 14 mls/hr Documented by: [id number] Cosigned by: [id number] Titration: 12/02/18 06:37 Dose: 700 units/hr, 14 mls/hr Documented by: [id number] Cosigned by: [id number] Titration: 12/02/18 03:49 Dose: 0 units/hr, 0 mls/hr Documented by: [id number] Cosigned by: [id number] Titration: 12/01/18 21:10 Dose: 850 units/hr, 17 mls/hr Documented by: [id number] Cosigned by: [id number] Titration: 12/01/18 20:40 Dose: 0 units/hr, 0 mls/hr Documented by: [id number] Cosigned by: [id number] Titration: 12/01/18 19:11 Dose: 950 units/hr, 19 mls/hr Documented by: [id number] Cosigned by: [id number] Admin: 12/01/18 13:02 Dose: 950 units/hr, 19 mls/hr Documented by: [id number] Cosigned by: [id number] Ioversol (Optiray 320 125ml) 120 ml IV ONCE PRN PRN Reason: Interaction Checking Stop: 12/04/18 19:03 Last Admin: 11/30/18 19:04 Dose: 120 ml Documented by: [id number] Metoprolol Tartrate (Lopressor) 5 mg IV Q4 [facility] Stop: 12/31/18 03:59 Last Admin: 12/02/18 08:50 Dose: 5 mg Documented by: [id number] Admin: 12/02/18 03:55 Dose: 5 mg Documented by: [id number] Admin: 12/02/18 00:07 Dose: 5 mg Documented by: [id number] Admin: 12/01/18 21:03 Dose: 5 mg Documented by: [id number] Admin: 12/01/18 17:12 Dose: 5 mg Documented by: [id number] Admin: 12/01/18 13:07 Dose: 5 mg Documented by: [id number] Admin: 12/01/18 09:11 Dose: 5 mg Documented by: [id number] Admin: 12/01/18 04:19 Dose: 5 mg Documented by: [id number] Discontinued Medications Ceftriaxone Sodium (Rocephin) 1,000 mg in 50 mls @ 100 mls/hr IV NOW STA Stop: 11/30/18 20:17 Last Infusion: 11/30/18 20:56 Dose: 0 mls/hr Documented by: [id number] Admin: 11/30/18 20:23 Dose: 100 mls/hr Documented by: [id number] Lorazepam (Ativan) 0.5 mg in 1 mls @ 1 mls/min IV NOW STA Stop: 11/30/18 20:46 Last Admin: 11/30/18 20:53 Dose: 1 mls/min Documented by: [id number] Labetalol HCl (Normodyne) 10 mg IV Q10M PRN PRN Reason: SBP above 185 or DBP above 110 Last Admin: 11/30/18 19:02 Dose: 10 mg Documented by: [id number] Cosigned by: [id number] Ondansetron HCl (Zofran) 4 mg IV NOW STA Stop: 11/30/18 18:38 Last Admin: 11/30/18 19:02 Dose: 4 mg Documented by: [id number] Description This is a 21 electrode EEG with a single channel dedicated to limited EKG. The electrodes were placed in accordance with the International 10-20 system. Interpretation The predominant background activity consists of an irregular 6-7 Hz activity, of up to 20 mV in amplitude,seen symmetrically distributed over the posterior head regions, spreading anteriorly diffusely bilaterally. This activity has little attenuation with eye-opening and other alerting procedures. Superimposed was some small, irregular 4-5 hertz activity bifrontally symmetrically. Photic stimulation was performed and elicited no change in the background activity and no abnormal responses were seen. Hyperventilation was not performed. A considerable l amount of muscle and movement artifact activity contaminated the recording and although hindered interpretation from time to time it did not hinder the final interpretation of the study. Throughout the recording, no focal abnormalities, or potentially epileptogenic discharges are seen. In summary, this EEG was abnormal and showed mild generalized dysrhythmia without focal findings or potentially epileptogenic discharges. Clinical Correlation The abscence of potentially epileptogenic activity does not exclude a seizure disorder, since interictally, EEGs can be normal. However, the slowing seen is very consistent with an encephalopathy, which could be due to a wide variety of causes. Clinical correlation is required.
[2018-12-02] MEDS: ACETAMINOPHEN 1,000 MG/100 ML VIAL IV PRN ×2 (11:35→20:17)
[2018-12-02 13:15] LABS: Partial Thromboplastin Ratio 2.6
[2018-12-02 13:24] LABS: Partial Thromboplastin Time 69.5 Seconds (21.0-31.0)
[2018-12-02] MEDS: Heparin Adult STANDARD Wt-Based Dextrose 5% 25,000 units/500 mL IV SCH (20:06)
[2018-12-02] MEDS: cefTRIAXone SODIUM 1,000 MG in DEXTROSE 5% 50 ML IV SCH (20:11)
[2018-12-02 20:37] LABS: Partial Thromboplastin Ratio 3.7
[2018-12-02 21:00] LABS: Partial Thromboplastin Time 100.2 Seconds (21.0-31.0)
[2018-12-03] MEDS: FAMOTIDINE 20 MG in SYRINGE 3 ML IV SCH ×2 (03:26→15:42)
[2018-12-03] MEDS: METOPROLOL TARTRATE 1 MG/ML VIAL IV SCH ×5 (03:26→20:24)
[2018-12-03 04:09] LABS: Hematocrit (blood only) 42.1 % (37-47); Hemoglobin 13.4 g/dL (12.0-16.0); Mean Corpuscular Hgb Conc 31.8 g/dL (32-36); Mean Corpuscular Volume 87.2 fL (80-100); Mean Platelet Volume 11.1 fL (7.4-10.4); Platelet Count 251 K/uL (130-400); RDW Coefficient of Variation 17.6 % (11.5-14.5); RDW Standard Deviation 56.5 fL (36.4-46.3); Red Blood Count 4.83 M/uL (4.2-5.4); White Blood Count 8.39 K/uL (4.8-10.8)
[2018-12-03 04:33] LABS: Partial Thromboplastin Ratio 2.4
[2018-12-03 04:35] LABS: Partial Thromboplastin Time 63.8 Seconds (21.0-31.0)
[2018-12-03] MEDS: SODIUM CHLORIDE 0.9% 1000ML 1,000 ML IV SCH ×2 (09:49→23:01)
[2018-12-03] MEDS: ACETAMINOPHEN 1,000 MG/100 ML VIAL IV PRN (11:59)
--- NOTE | 2018-12-03 12:05 | Neurology Progress Note ---
Date of Service December 03, 2018 Assessment & Plan (1) Acute encephalopathy: The patient has a significant acute encephalopathy, of uncertain etiology. She on examination is tachycardic and has marked elevated blood pressure this morning. She is not following commands or speaking well. Additionally she has no meningeal signs, fever, elevated white count or other signs of infection. There is a questionable UTI but the urine culture is negative. On examination she has no focal neurologic signs or upper motor neuron signs. Etiology of this acute encephalopathy may be related to hypertension more than anything else. She does have a history of migraines starting October 29 which probably coincides to the elevated blood pressure. The confusion is always linked to headaches. Because she cannot speak I cannot ascertain whether not she has a headache this morning. There does not seem to be any signs of central nervous system infection to account for encephalopathy and she has no new stroke or structural lesions on MRI compared to her previous MRI from September. This small left frontal stroke should not give encephalopathy. She has no other metabolic abnormalities and there are no medications/toxins which could be doing this. She was on a very low dose of amitriptyline prior to admission but this has been discontinued. Sometimes elderly individuals do not tolerate amitriptyline. An EEG December 02 showed mild generalized slowing consistent with encephalopathy. There was nothing focal and there were no potentially epileptogenic discharges (see report). Her mental status seems to wax and wane, improving when her blood pressure is better and the headache resolves. (2) Hypertensive urgency: Patient has a history of hypertension. At the time of her stroke in late September she was significantly hypotensive so 2 antihypertensives were discontinued. Within a couple of weeks after this she started getting hypertensive again and has been this way since. She has a wide pulse pressure so it is a bit tricky to treat her blood pressure without bottoming it out. She was significantly hypertensive on admission and is significantly hypertensive this morning. (3) Migraines: Patient has a history of migraine headaches in her early 20s. These resolved until the last 4-5 weeks. I believe these migraines currently are triggered by her acute Hypertension. (4) Acute ischemic left MCA stroke: Patient has a history of relatively small left frontal stroke October 19. This was embolic from the heart with her atrial fibrillation. The patient also has moderate old small vessel ischemic changes consistent with advanced age and her history of hypertension and dyslipidemia. Anticoagulation will prevent emboli but will not prevent old small vessel ischemic disease. (5) Atrial fibrillation: Patient has atrial fibrillation chronically. When able to take p.o. she will be on Eliquis. Currently she is on heparin. Recommendations: 1. Treat hypertension as you are doing. My drug of choice to prevent vasospasm/migraines with hypertension is verapamil. Perhaps we can crush layne ate release verapamil when she is able to take p.o. using a low dose of 60-80 milligrams twice daily. We can titrate this as needed. Obviously we are aiming for a mean arterial pressure of approximately 95-100. Verapamil could be given via NG tube. 2. Avoid narcotics and benzodiazepines so as not to create any additional confusion/mental status changes 3. Avoid amitriptyline/tricyclic antidepressants in this age group. 4. Increase activity as able and she may benefit from physical therapy. 5. I would avoid triptans as needed for headaches (because of their vasospastic properties) until such time as her blood pressure is controlled and she does not have confusion. Excedrin Tension seem to of work before and this could be given if she can take p.o., as needed. 6. I do not see a need for a lumbar puncture at this time. I will follow. Overall I spent a total of 25 minutes with this case including review of records, direct evaluation the patient at bedside, and discussion of the case with the patient, her daughter and both over the phone and at bedside, clinical staff, , and Dr. Coburn, including differential diagnosis and treatment options. Subjective It is a waxing and waning with alertness the and occasionally can communicate some words and thoughts and other times not. She was a little more communicati ve earlier this morning but now is not very communicative. Daughter claims she said she had a band headache. Blood pressure is 200/100 and has been quite high this morning. Pulse is 101. She remains afebrile. CBC this morning was unremarkable. She has had no seizure activity. Physical Exam Vital Signs (Past 24 Hours): Last Vital Signs Temp 36.2 C L 12/03/18 07:49 Pulse 101 H 12/03/18 08:11 Resp 16 12/03/18 07:49 BP 192/100 H 12/03/18 08:11 Pulse Ox 94 12/03/18 07:49 Physical Exam: She is lying in bed with her eyes closed the and not responding much to voice or gentle shaking. Occasionally she will open her eyes and fix but most the time she remains sleepy. She has no nystagmus and no facial droop. There is decreased tone in the limbs.
--- NOTE | 2018-12-03 12:27 | Family Medicine Progress Note ---
Date of Service December 03, 2018 Assessment & Plan (1) Acute encephalopathy: Ms. Lozada is a 88yo female with a PMHx significant for recent L frontal MCA stroke who presented with a 1 day history of repeated bouts of emesis, fluctuating mental status and was found to be in hypertensive urgency with a UTI on admission. Acute Encephalopathy -Pt with waxing and waning course. -Extensive imaging of the head (Head CT and CTA, Neck CTA, Brain MRI) argues against any acute stroke-like cause. -Neuro- EEG done - suggestive of encephalopathy. Concern of migraine headache being the inciting event to the hypertensive response and encephalopathy - Verapamil for migraine prophylaxis and will help with BP control, no LP, some benefit from PT. Excedrin Migraine for headaches once she can have oral meds. -No more Ativan use, consider low dose Haldol IF needed at all. -Will continue to monitor and reorient as necessary. -Per speech eval--NPO EVEN with meds. Hypertensive Urgency -s/p recent stroke -BPs up and down with wide variance- considering adding another med. -Start Verapamil per Neuro recs--however speech eval recs no PO meds. Will reevaluate. -Continue Lopressor 5mg IV q4h with hold parameters in the interim -Target to normal BP range given no concern for acute stroke currently. -No evidence of end organ damage/significant changes to baseline organ function to warrant dx of hypertensive emergency at this time. -Will continue to monitor. Possible UTI -Received 1 dose of Rocephin 1g in ED as possible cause of altered mental status. Scheduled to continue daily given continued AMS. -Urine Cx pending- final NO GROWTH. -Continue Rochephin until final/3 days. Atrial Fibrillation -Pt with historical dx, on Eliquis at home. -CHADsVasc score of at least 5, requiring anticoagulation (age, sex, Hx of stroke) -Currently in a fib with EKG from 11/30 showing atrial fibrillation with rvr, ventricular rate 110, qtc 441. -Currently on a heparin drip. Consider NOAC/warfarin switch once able to swallow w/o risk of aspiration -Continue lopressor Vomiting/Dehydration -Likely due to viral illness/prodorm of migraines. -Cont IV fluids CKD Stage 4 -Baseline Cr of 1.98 -Slowly climbing, 2.12 today. -Will continue to monitor GERD -Continue famotidine 20mg IV q12hrs FEN- IVF CODE Status: Full DVT Prophylaxis: IV Heparin Supervising Physician Co-Signing Physician Notes Resident Physician Supervision Note: I independently interviewed and examined the patient and verified the adames history and physical, reviewed labs and image studies, discussed the case with the resident Dr. Riley and agree with the findings and care plan. Subjective Pt resting comfortably in bed this morning. Speech recommends NPO even with meds as aspiration risk. Still hypertensive with AMS. Review of Systems Unobtainable due to cognitive status Physical Exam Vital Signs (Past 24 Hours): Last Vital Signs Temp 36.3 C L 12/03/18 11:31 Pulse 101 H 12/03/18 11:57 Resp 18 12/03/18 11:31 BP 242/101 H 12/03/18 11:57 Pulse Ox 96 12/03/18 11:31 General: Resting in bed. HEENT: NC/AT Chest: Nontender to palpation. CV: Irregularly irregular rate Resp: Breath sounds clear bilaterally on front, no increased effort of breathing. Abdomen: Soft, nontender, nondistended. No guarding. No organomegaly appreciated. Extremities: No edema. Results & Data Laboratory Results Laboratory Results - last 24 hr 12/02/18 12/02/18 12/03/18 12:44 19:38 03:52 WBC 8.39 RBC 4.83 Hgb 13.4 Hct 42.1 MCV 87.2 MCH 27.7 MCHC 31.8 L RDW Std Deviation 56.5 H RDW Coeff of Jennifer 17.6 H Plt Count 251 MPV 11.1 H APTT 69.5 H* 100.2 H* PTT Ratio 2.6 3.7 12/03/18 03:52 WBC RBC Hgb Hct MCV MCH MCHC RDW Std Deviation RDW Coeff of Jennifer Plt Count MPV APTT 63.8 H* PTT Ratio 2.4 Medications Administered Home Medications albuterol sulfate [ProAir HFA] 2 puff INHALATION Q6H PRN 10/19/18 [History Confirmed 11/30/18] budesonide-formoterol 2 puff INHALATION BID 10/19/18 [History Confirmed 11/30/18] calcium carbonate [Calcium 500] 500 mg PO DAILY 10/19/18 [History Confirmed 11/30/18] pantoprazole 40 mg PO DAILY 10/19/18 [History Confirmed 11/30/18] apixaban [Eliquis] 2.5 mg PO Q12 11/06/18 [History Confirmed 11/30/18] acetaminophen-caffeine [Excedrin Tension Headache] 2 tab PO AMPM 11/30/18 [History Confirmed 11/30/18] amitriptyline 10 mg PO HS 11/30/18 [History Confirmed 11/30/18] atorvastatin 0 mg PO DAILY 11/30/18 [History Confirmed 11/30/18] Active Medications Ceftriaxone Sodium 1,000 mg/ (Dextrose) 60 mls @ 100 mls/hr IV Q24H [facility] Stop: 12/04/18 20:35 Last Infusion: 12/02/18 20:47 Dose: Infused Documented by: Sodium Chloride (Nss 1000ml) 1,000 mls @ 80 mls/hr IV .[id number] [facility] Stop: 12/30/18 20:59 Last Admin: 12/03/18 09:49 Dose: 80 mls/hr Documented by: Famotidine 20 mg/ Syringe 5 mls @ 2.5 mls/min IV Q12H [facility] Stop: 12/31/18 03:59 Last Admin: 12/03/18 03:26 Dose: 2.5 mls/min Documented by: Heparin Sodium/Dextrose (Heparin Sodium/Dextrose) 25,000 units in 500 mls @ 11 mls/hr IV .Q24H [facility]; Protocol Stop: 12/31/18 11:29 Last Titration: 12/03/18 07:31 Dose: 550 units/hr, 11 mls/hr Documented by: Acetaminophen (Ofirmev) 1,000 mg in 100 mls @ 400 mls/hr IV Q8H PRN PRN Reason: Headache Stop: 01/01/19 09:50 Last Infusion: 12/03/18 12:15 Dose: Infused Documented by: Enalaprilat 0.625 mg/ Syringe 10 mls @ 2 mls/min IV Q6H [facility] Stop: 01/02/19 11:59 Ioversol (Optiray 320 125ml) 120 ml IV ONCE PRN PRN Reason: Interaction Checking Stop: 12/04/18 19:03 Last Admin: 11/30/18 19:04 Dose: 120 ml Documented by: Metoprolol Tartrate (Lopressor) 5 mg IV Q4 [facility] Stop: 12/31/18 03:59 Last Admin: 12/03/18 11:57 Dose: 5 mg Documented by: Ondansetron HCl (Zofran) 4 mg IV Q6H PRN PRN Reason: Nausea Stop: 12/30/18 22:24
[2018-12-03] MEDS ORDERED: HydrALAZINE HCL 20 MG/ML VIAL IV PRN (13:04)
[2018-12-03] MEDS: ENALAPRILAT 0.625 MG in SYRINGE 9.5 ML IV SCH ×2 (13:06→17:44)
[2018-12-03] MEDS: HydrALAZINE HCL 20 MG/ML VIAL IV SCH ×2 (17:00→21:42)
[2018-12-03] MEDS ORDERED: ALBUTEROL 0.083% NEBU SOLN 3 ML VIAL NEB PRN (18:20)
[2018-12-03] MEDS: ALBUT/IPRATROP 3MG/0.5MG NEB 3 ML VIAL NEB SCH (20:17)
[2018-12-03] MEDS: cefTRIAXone SODIUM 1,000 MG in DEXTROSE 5% 50 ML IV SCH (20:24)
[2018-12-04] MEDS: ENALAPRILAT 0.625 MG in SYRINGE 9.5 ML IV SCH ×2 (00:35→06:03)
[2018-12-04] MEDS: METOPROLOL TARTRATE 1 MG/ML VIAL IV SCH ×6 (00:35→20:46)
[2018-12-04] MEDS: HydrALAZINE HCL 20 MG/ML VIAL IV SCH ×6 (01:32→20:47)
[2018-12-04] MEDS: FAMOTIDINE 20 MG in SYRINGE 3 ML IV SCH ×2 (04:14→18:17)
[2018-12-04 07:29] LABS: Partial Thromboplastin Ratio 1.8
[2018-12-04] MEDS: ALBUT/IPRATROP 3MG/0.5MG NEB 3 ML VIAL NEB SCH ×4 (07:29→19:30)
[2018-12-04 08:32] LABS: Partial Thromboplastin Time 48.4 Seconds (21.0-31.0)
[2018-12-04] MEDS: Heparin Adult STANDARD Wt-Based Dextrose 5% 25,000 units/500 mL IV SCH ×2 (10:32→15:15)
[2018-12-04 11:09] LABS: Basophils # (auto) 0.01 K/uL (0-0.2); Basophils % (auto) 0.1 %; Eosinophils # (auto) 0.03 K/uL (0-0.5); Eosinophils % (auto) 0.3 %; Hematocrit (blood only) 43.5 % (37-47); Hemoglobin 14.5 g/dL (12.0-16.0); Immature Granulocytes # (auto) 0.06 K/uL (0.00-0.02); Immature Granulocytes % (auto) 0.6 %; Lymphocytes % (auto) 10.4 %; Mean Corpuscular Hgb Conc 33.3 g/dL (32-36); Mean Corpuscular Volume 85.6 fL (80-100); Mean Platelet Volume 11.2 fL (7.4-10.4); Monocytes # (auto) 0.92 K/uL (0.11-0.59); Monocytes % (auto) 9.6 %; Neutrophils # (auto) 7.58 K/uL (1.4-6.5); Nucleated RBC # (auto) 0.02 K/uL (0-0); Nucleated RBC % (auto) 0.2 %; Platelet Count 251 K/uL (130-400); RDW Coefficient of Variation 17.8 % (11.5-14.5); RDW Standard Deviation 55.6 fL (36.4-46.3); Red Blood Count 5.08 M/uL (4.2-5.4)
[2018-12-04 11:35] LABS: BUN Creatinine Ratio 18.1 (10-20); Calcium 9.9 mg/dl (8.5-10.1); Creatinine Clr Calc Pharmacy 20.9 ml/min; Est GFR (African American) 37.2; Est GFR (Non-African American) 32.1; Potassium 3.2 mmol/L (3.5-5.1)
[2018-12-04] MEDS: SODIUM CHLORIDE 0.9% 1000ML 1,000 ML IV SCH (11:37)
--- NOTE | 2018-12-04 11:57 | Family Medicine Progress Note ---
Date of Service December 04, 2018 Assessment & Plan (1) Acute encephalopathy: Ms. Lozada is a 88yo female with a PMHx significant for recent L frontal MCA stroke who presented with a 1 day history of repeated bouts of emesis, fluctuating mental status and was found to be in hypertensive urgency with a UTI on admission. Also has Hx of CHF, PE with pulm infarct, atrial fibrillation, hiatial hernia and asthma and allergies. Acute Encephalopathy -Extensive imaging of the head (Head CT and CTA, Neck CTA, Brain MRI) argues against any acute stroke-like cause. -Neuro- EEG done - suggestive of encephalopathy. Concern of migraine headache being the inciting event to the hypertensive response and encephalopathy - Verapamil for migraine prophylaxis and will help with BP control. Excedrin Migraine for headaches once she can have oral meds. -Pt with waxing and waning course. -Today awake and following commands before becoming somnolent once more. -Requesting speech reassessment as pt with better status today--need to determine NG tube need to administer meds. -No more Ativan use, consider low dose Haldol IF needed at all. -Will continue to monitor and reorient as necessary. -Per speech eval--NPO EVEN with meds. Hypoxia - ? Aspiration Pneumonitis Hx of Asthma -Pt with increased O2 need -Possible aspiration especially given speech eval -Chest XR ordered. -Nebs -Resume home inhalers once more alert Hypertensive Urgency -s/p recent stroke -BPs up and down with wide variance -Current treatment with Lopressor and Hydralazine. 2 doses of Enalapril given yesterday. -Start Verapamil per Neuro recs--however speech eval recs no PO meds. Will reevaluate. -Target BP to normal BP range given no concern for acute stroke currently. -No evidence of end organ damage/significant changes to baseline organ function to warrant dx of hypertensive emergency at this time. -Will continue to monitor. Possible UTI -Received 1 dose of Rocephin 1g in ED as possible cause of altered mental status. Scheduled to continue daily given continued AMS. -Urine Cx pending- final NO GROWTH. -Rocephin D/C 12/04 Atrial Fibrillation -Pt with historical dx, on Eliquis at home. -CHADsVasc score of at least 5, requiring anticoagulation (age, sex, Hx of stroke) -Currently in a fib with EKG from 11/30 showing atrial fibrillation with rvr, ventricular rate 110, qtc 441. -Currently on a heparin drip. Consider NOAC/warfarin switch once able to swallow w/o risk of aspiration -Continue lopressor Vomiting/Dehydration -Likely due to viral illness/prodrome of migraines. -Cont IV fluids CKD Stage 4 -Improving -Baseline Cr of 1.98 -Creatinine function of 1.44 today. -Will continue to monitor GERD -Continue famotidine 20mg IV q12hrs FEN- IVF CODE Status: Full DVT Prophylaxis: IV Heparin Supervising Physician Co-Signing Physician Notes Resident Physician Supervision Note: I independently interviewed and examined the patient and verified the adames history and physical, reviewed labs and image studies, discussed the case with the resident Dr. Riley and agree with the findings and care plan. Subjective Pt was resting comfortably with reports of hand squeezing and waxing and waning mental status. BPs with better control. Review of Systems Unobtainable due to cognitive status Physical Exam Vital Signs (Past 24 Hours): Last Vital Signs Temp 36.6 C 12/04/18 11:39 Pulse 100 H 12/04/18 11:39 Resp 24 12/04/18 11:39 BP 106/63 12/04/18 11:39 Pulse Ox 100 12/04/18 11:39 General: Resting in bed comfortably. HEENT: NC/AT Chest: Nontender to palpation. CV: Irregularly irregular rate Resp: Breath sounds clear bilaterally on front, no increased effort of breathing. Abdomen: Soft, nontender, nondistended. No guarding. No organomegaly appreciated. Extremities: No edema. Results & Data Laboratory Results Laboratory Results - last 24 hr 12/03/18 12/04/18 12/04/18 13:51 06:41 10:43 WBC 9.60 RBC 5.08 Hgb 14.5 Hct 43.5 MCV 85.6 MCH 28.5 MCHC 33.3 RDW Std Deviation 55.6 H RDW Coeff of Jennifer 17.8 H Plt Count 251 MPV 11.2 H Immature Gran % (Auto) 0.6 Neut % (Auto) 79.0 Lymph % (Auto) 10.4 [place] % (Auto) 9.6 Eos % (Auto) 0.3 Baso % (Auto) 0.1 Immature Gran # (Auto) 0.06 H Neut # (Auto) 7.58 H Lymph # (Auto) 1.00 L [place] # (Auto) 0.92 H Eos # (Auto) 0.03 Baso # (Auto) 0.01 Absolute Nucleated RBC 0.02 H Nucleated RBC % (auto) 0.2 APTT 48.4 H* PTT Ratio 1.8 Sodium Potassium Chloride Carbon Dioxide Anion Gap BUN Creatinine Est Cr Clr Drug Dosing Est GFR ( Amer) Est GFR (Non-Af Amer) BUN/Creatinine Ratio Glucose Calcium Ammonia < 10.0 L 12/04/18 10:43 WBC RBC Hgb Hct MCV MCH MCHC RDW Std Deviation RDW Coeff of Jennifer Plt Count MPV Immature Gran % (Auto) Neut % (Auto) Lymph % (Auto) [place] % (Auto) Eos % (Auto) Baso % (Auto) Immature Gran # (Auto) Neut # (Auto) Lymph # (Auto) [place] # (Auto) Eos # (Auto) Baso # (Auto) Absolute Nucleated RBC Nucleated RBC % (auto) APTT PTT Ratio Sodium 145 Potassium 3.2 L Chloride 118 H Carbon Dioxide 16 L Anion Gap 12.0 H BUN 26 H Creatinine 1.44 H Est Cr Clr Drug Dosing 20.9 Est GFR ( Amer) 37.2 Est GFR (Non-Af Amer) 32.1 BUN/Creatinine Ratio 18.1 Glucose 114 H Calcium 9.9 Ammonia Medications Administered Home Medications albuterol sulfate [ProAir HFA] 2 puff INHALATION Q6H PRN 10/19/18 [History Confirmed 11/30/18] budesonide-formoterol 2 puff INHALATION BID 10/19/18 [History Confirmed 11/30/18] calcium carbonate [Calcium 500] 500 mg PO DAILY 10/19/18 [History Confirmed 11/30/18] pantoprazole 40 mg PO DAILY 10/19/18 [History Confirmed 11/30/18] apixaban [Eliquis] 2.5 mg PO Q12 11/06/18 [History Confirmed 11/30/18] acetaminophen-caffeine [Excedrin Tension Headache] 2 tab PO AMPM 11/30/18 [History Confirmed 11/30/18] amitriptyline 10 mg PO HS 11/30/18 [History Confirmed 11/30/18] atorvastatin 0 mg PO DAILY 11/30/18 [History Confirmed 11/30/18] Active Medications Albuterol (Duoneb) 3 ml NEB QIDR [facility]ONDA Stop: 01/02/19 19:59 Last Admin: 12/04/18 11:06 Dose: 3 ml Documented by: Albuterol (Ventolin 0.083% 2.5mg/3ml) 2.5 mg NEB Q2R PRN PRN Reason: Shortness Of Breath Or Wheezing Stop: 01/02/19 18:19 Hydralazine HCl (Hydralazine Hcl) 5 mg IV Q4H [facility] Stop: 01/02/19 16:44 Last Admin: 12/04/18 08:53 Dose: 5 mg Documented by: Sodium Chloride (Nss 1000ml) 1,000 mls @ 80 mls/hr IV .[id number] [facility] Stop: 12/30/18 20:59 Last Admin: 12/04/18 11:37 Dose: 80 mls/hr Documented by: Famotidine 20 mg/ Syringe 5 mls @ 2.5 mls/min IV Q12H [facility] Stop: 12/31/18 03:59 Last Admin: 12/04/18 04:14 Dose: 2.5 mls/min Documented by: Heparin Sodium/Dextrose (Heparin Sodium/Dextrose) 25,000 units in 500 mls @ 11 mls/hr IV .Q24H [facility]; Protocol Stop: 12/31/18 11:29 Last Admin: 12/04/18 10:32 Dose: 550 units/hr, 11 mls/hr Documented by: Acetaminophen (Ofirmev) 1,000 mg in 100 mls @ 400 mls/hr IV Q8H PRN PRN Reason: Headache Stop: 01/01/19 09:50 Last Infusion: 12/03/18 12:15 Dose: Infused Documented by: Ioversol (Optiray 320 125ml) 120 ml IV ONCE PRN PRN Reason: Interaction Checking Stop: 12/04/18 19:03 Last Admin: 11/30/18 19:04 Dose: 120 ml Documented by: Metoprolol Tartrate (Lopressor) 5 mg IV Q4 [facility] Stop: 12/31/18 03:59 Last Admin: 12/04/18 07:55 Dose: 5 mg Documented by: Ondansetron HCl (Zofran) 4 mg IV Q6H PRN PRN Reason: Nausea Stop: 12/30/18 22:24
--- NOTE | 2018-12-04 13:59 | XRay Report ---
XR chest 1V portable CLINICAL HISTORY: aspiration pneumonia, PT BEING CLEANED UP @1130, JW COMPARISON STUDY: 11/30/2018 FINDINGS: Moderate stable cardia megaly. Increased prominence of pulmonary vasculature. Findings of c ongestive failure/pulmonary edema are present. IMPRESSION: Developing components of congestive heart failure. The above report was generated using voice recognition software. It may contain grammatical, syntax or spelling errors. Electronically signed by: Asaf Posada M.D. 12/04/2018 1:58 PM
[2018-12-04] MEDS ORDERED: FUROSEMIDE 20 MG in SYRINGE 0 ML IV ONE (16:00)
[2018-12-04] MEDS: POTASSIUM CHLORIDE / WTR 10 MEQ/100 ML PLCT IV SCH ×4 (16:20→20:46)
--- NOTE | 2018-12-04 17:45 | XRay Report ---
XR KUB/Abdomen 1 view CLINICAL HISTORY: Supine abdomen for nasogastric tube placement. COMPARISON STUDY: No previous studies for comparison. FINDINGS: There is no pathologic bowel dilatation. The recently placed feeding tube is positioned in the midline projected over the stomach. There are extensive vascular calcifications. IMPRESSION: The recently placed feeding tube appears positioned within the stomach. Electronically signed by: Hugo Mcgregor M.D. 12/04/2018 5:44 PM
[2018-12-04] MEDS: SODIUM CHLORIDE 0.9% 500 ML IV SCH (21:55)
[2018-12-05] MEDS: METOPROLOL TARTRATE 1 MG/ML VIAL IV SCH ×6 (00:15→23:59)
[2018-12-05] MEDS: HydrALAZINE HCL 20 MG/ML VIAL IV SCH ×6 (00:55→20:54)
[2018-12-05] MEDS: FAMOTIDINE 20 MG in SYRINGE 3 ML IV SCH ×2 (04:29→15:40)
[2018-12-05] MEDS: SODIUM CHLORIDE 0.9% 500 ML IV SCH ×2 (06:06→15:40)
[2018-12-05] MEDS: ALBUT/IPRATROP 3MG/0.5MG NEB 3 ML VIAL NEB SCH ×4 (07:01→19:38)
[2018-12-05 07:57] LABS: Basophils # (auto) 0.01 K/uL (0-0.2); Basophils % (auto) 0.1 %; Eosinophils # (auto) 0.15 K/uL (0-0.5); Eosinophils % (auto) 2.1 %; Hematocrit (blood only) 35.9 % (37-47); Hemoglobin 11.8 g/dL (12.0-16.0); Immature Granulocytes # (auto) 0.03 K/uL (0.00-0.02); Immature Granulocytes % (auto) 0.4 %; Lymphocytes # (auto) 1.14 K/uL (1.2-3.4); Lymphocytes % (auto) 15.7 %; Mean Corpuscular Hgb Conc 32.9 g/dL (32-36); Mean Corpuscular Volume 86.3 fL (80-100); Mean Platelet Volume 10.9 fL (7.4-10.4); Monocytes # (auto) 1.07 K/uL (0.11-0.59); Monocytes % (auto) 14.8 %; Neutrophils # (auto) 4.84 K/uL (1.4-6.5); Neutrophils % (auto) 66.9 %; Platelet Count 218 K/uL (130-400); RDW Coefficient of Variation 18.1 % (11.5-14.5); RDW Standard Deviation 57.1 fL (36.4-46.3); Red Blood Count 4.16 M/uL (4.2-5.4); White Blood Count 7.24 K/uL (4.8-10.8)
[2018-12-05 08:10] LABS: Partial Thromboplastin Ratio 1.6; Partial Thromboplastin Time 44.7 Seconds (21.0-31.0)
[2018-12-05 08:29] LABS: BUN Creatinine Ratio 18.4 (10-20); Calcium 9.5 mg/dl (8.5-10.1); Creatinine Clr Calc Pharmacy 19.5 ml/min; Est GFR (African American) 34.1; Est GFR (Non-African American) 29.4; Potassium 3.6 mmol/L (3.5-5.1)
[2018-12-05] MEDS ORDERED: HEPARIN IV BOLUS 2,000 UNITS in SYRINGE 0 ML IV ONE (08:30)
[2018-12-05] MEDS ORDERED: VERAPAMIL HCL 180 MG TABCR PO SCH (09:00)
[2018-12-05] MEDS ORDERED: VERAPAMIL HCL 120 MG TABCR PO SCH (09:00)
[2018-12-05 09:38] LABS: Magnesium 1.9 mg/dl (1.8-2.4); Phosphorus 3.1 mg/dl (2.5-4.9)
[2018-12-05] MEDS ORDERED: FIBERSOURCE HN 1.2 CAL 1000 ML BAG NG SCH (13:30)
[2018-12-05] MEDS: FIBERSOURCE HN 1.2 CAL 1000 ML BAG NG SCH (16:06)
--- NOTE | 2018-12-05 16:30 | Family Medicine Progress Note ---
Date of Service December 05, 2018 Assessment & Plan (1) Acute encephalopathy: Ms. Lozada is a 88yo female with a PMHx significant for recent L frontal MCA stroke who presented with a 1 day history of repeated bouts of emesis, fluctuating mental status and was found to be in hypertensive urgency with a UTI on admission. Also has Hx of CHF, PE with pulm infarct, atrial fibrillation, hiatial hernia and asthma and allergies. Acute Encephalopathy -Extensive imaging of the head (Head CT and CTA, Neck CTA, Brain MRI) argues against any acute stroke-like cause. -Neuro- EEG done - suggestive of encephalopathy. Concern of migraine headache being the inciting event to the hypertensive response and encephalopathy - Verapamil for migraine prophylaxis and will help with BP control. Excedrin Migraine for headaches once she can have oral meds/Hypertensive episodes secondary to uncontrolled BP from discontinuing meds after last stroke - leading to headache and hypertensive encephalopathy -NG tube placed for Verapimil administration. Also receiving tube feeds per nutrition recs. -Mentation much clear -Avoid sedating meds. -Per speech eval--NPO EVEN with meds. Feeding ds -Speech recommends continue to hold off on oral feeding. -NG placed. feeding and oral meds via it. Hypoxia - ?fluid overload/ Aspiration Pneumonitis -Hx of Asthma -Chest XR shows some CHF developing. -Fluids lowered, one time dose of Lasix administered. -O2 requirement improved today. -Nebs -Resume home inhalers once more alert Hypertensive Urgency -s/p recent stroke -BPs better controlled with schedule lopressor. hydralazine with hold parameters. -Start Verapamil per Neuro recs now NG tube in place. -Target BP to normal BP range given no concern for acute stroke currently. Possible UTI -Received 1 dose of Rocephin 1g in ED as possible cause of altered mental status. -Urine Cx - final NO GROWTH. -Rocephin D/C 12/04 Atrial Fibrillation -Pt with historical dx, on Eliquis at home. -CHADsVasc score of at least 5, requiring anticoagulation (age, sex, Hx of stroke) -Currently in a fib with EKG from 11/30 showing atrial fibrillation with rvr, ventricular rate 110, qtc 441. -Currently on a heparin drip. Consider NOAC/warfarin switch once able to swallow w/o risk of aspiration -Continue lopressor Vomiting/Dehydration -Likely due to viral illness/prodrome of migraines. -Cont IV fluids at lower rate CKD Stage 4 -Improving -Baseline Cr of 1.98 -Creatinine function of 1.55 today. -Will continue to monitor Hypok -replaced GERD -Continue famotidine 20mg IV q12hrs FEN- tube feeds per nutrition recs, ivf CODE Status: Full DVT Prophylaxis: IV Heparin Supervising Physician Co-Signing Physician Notes Resident Physician Supervision Note: I independently interviewed and examined the patient and verified the adames history and physical, reviewed labs and image studies, discussed the case with the resident Dr. Riley and agree with the findings and care plan. Subjective Pt resting in bed, not agitated. Family at bedside, states she was trying to remove NG tube overnight. Declining chemical and physical restraints. Review of Systems Unobtainable due to cognitive status Physical Exam Vital Signs (Past 24 Hours): Last Vital Signs Temp 37 C 12/05/18 15:55 Pulse 109 H 12/05/18 15:55 Resp 18 12/05/18 15:55 BP 99/71 L 12/05/18 15:55 Pulse Ox 97 12/05/18 15:55 General: Resting in bed comfortably. HEENT: NC/AT Chest: Nontender to palpation. CV: Irregularly irregular rate Resp: Breath sounds clear bilaterally on front, some scattered wheezes on back. Abdomen: Soft, nontender, nondistended. No guarding. No organomegaly appreciated. Extremities: No edema. Results & Data Laboratory Results Laboratory Results - last 24 hr 12/05/18 12/05/18 12/05/18 07:43 07:43 07:43 WBC 7.24 RBC 4.16 L Hgb 11.8 L Hct 35.9 L MCV 86.3 MCH 28.4 MCHC 32.9 RDW Std Deviation 57.1 H RDW Coeff of Jennifer 18.1 H Plt Count 218 MPV 10.9 H Immature Gran % (Auto) 0.4 Neut % (Auto) 66.9 Lymph % (Auto) 15.7 [place] % (Auto) 14.8 Eos % (Auto) 2.1 Baso % (Auto) 0.1 Immature Gran # (Auto) 0.03 H Neut # (Auto) 4.84 Lymph # (Auto) 1.14 L [place] # (Auto) 1.07 H Eos # (Auto) 0.15 Baso # (Auto) 0.01 APTT 44.7 H PTT Ratio 1.6 Sodium 148 H Potassium 3.6 Chloride 119 H Carbon Dioxide 19 L Anion Gap 10.0 BUN 29 H Creatinine 1.55 H Est Cr Clr Drug Dosing 19.5 Est GFR ( Amer) 34.1 Est GFR (Non-Af Amer) 29.4 BUN/Creatinine Ratio 18.4 Glucose 102 H Calcium 9.5 Phosphorus Magnesium 12/05/18 07:43 WBC RBC Hgb Hct MCV MCH MCHC RDW Std Deviation RDW Coeff of Jennifer Plt Count MPV Immature Gran % (Auto) Neut % (Auto) Lymph % (Auto) [place] % (Auto) Eos % (Auto) Baso % (Auto) Immature Gran # (Auto) Neut # (Auto) Lymph # (Auto) [place] # (Auto) Eos # (Auto) Baso # (Auto) APTT PTT Ratio Sodium Potassium Chloride Carbon Dioxide Anion Gap BUN Creatinine Est Cr Clr Drug Dosing Est GFR ( Amer) Est GFR (Non-Af Amer) BUN/Creatinine Ratio Glucose Calcium Phosphorus 3.1 Magnesium 1.9 Medications Administered Home Medications albuterol sulfate [ProAir HFA] 2 puff INHALATION Q6H PRN 10/19/18 [History Confirmed 11/30/18] budesonide-formoterol 2 puff INHALATION BID 10/19/18 [History Confirmed 11/30/18] calcium carbonate [Calcium 500] 500 mg PO DAILY 10/19/18 [History Confirmed 11/30/18] pantoprazole 40 mg PO DAILY 10/19/18 [History Confirmed 11/30/18] apixaban [Eliquis] 2.5 mg PO Q12 11/06/18 [History Confirmed 11/30/18] acetaminophen-caffeine [Excedrin Tension Headache] 2 tab PO AMPM 11/30/18 [History Confirmed 11/30/18] amitriptyline 10 mg PO HS 11/30/18 [History Confirmed 11/30/18] atorvastatin 0 mg PO DAILY 11/30/18 [History Confirmed 11/30/18] Active Medications Albuterol (Duoneb) 3 ml NEB QIDR [facility]ONDA Stop: 01/02/19 19:59 Last Admin: 12/05/18 15:31 Dose: 3 ml Documented by: Albuterol (Ventolin 0.083% 2.5mg/3ml) 2.5 mg NEB Q2R PRN PRN Reason: Shortness Of Breath Or Wheezing Stop: 01/02/19 18:19 Enteral Nutritional Formula (Fibersource Hn 1.2 [place] Liquid) 1,000 ml NG Q24H [facility]; Protocol Stop: 01/04/19 13:29 Last Admin: 12/05/18 16:06 Dose: Not Given Documented by: Hydralazine HCl (Hydralazine Hcl) 5 mg IV Q4H [facility] Stop: 01/02/19 16:44 Last Admin: 12/05/18 16:06 Dose: Not Given Documented by: Famotidine 20 mg/ Syringe 5 mls @ 2.5 mls/min IV Q12H [facility] Stop: 12/31/18 03:59 Last Admin: 12/05/18 15:40 Dose: 2.5 mls/min Documented by: Heparin Sodium/Dextrose (Heparin Sodium/Dextrose) 25,000 units in 500 mls @ 13 mls/hr IV .Q24H [facility]; Protocol Stop: 12/31/18 11:29 Last Titration: 12/05/18 08:11 Dose: 650 units/hr, 13 mls/hr Documented by: Acetaminophen (Ofirmev) 1,000 mg in 100 mls @ 400 mls/hr IV Q8H PRN PRN Reason: Headache Stop: 01/01/19 09:50 Last Infusion: 12/03/18 12:15 Dose: Infused Documented by: Sodium Chloride (Nss) 500 mls @ 50 mls/hr IV .Q10H [facility] Stop: 01/03/19 18:59 Last Admin: 12/05/18 15:40 Dose: 50 mls/hr Documented by: Metoprolol Tartrate (Lopressor) 2.5 mg IV Q6 [facility]ON[facility] Stop: 01/04/19 11:59 Last Admin: 12/05/18 13:17 Dose: 2.5 mg Documented by: Ondansetron HCl (Zofran) 4 mg IV Q6H PRN PRN Reason: Nausea Stop: 12/30/18 22:24 Verapamil HCl (Calan) 60 mg PO TID [facility] Stop: 01/04/19 16:59
[2018-12-05] MEDS: VERAPAMIL HCL 40 MG TAB PO SCH ×2 (17:17→21:02)
[2018-12-05 18:02] LABS: Partial Thromboplastin Ratio 2.4
[2018-12-05 18:09] LABS: Partial Thromboplastin Time 64.6 Seconds (21.0-31.0)
[2018-12-06] MEDS: HydrALAZINE HCL 20 MG/ML VIAL IV SCH ×6 (01:20→21:29)
[2018-12-06] MEDS: SODIUM CHLORIDE 0.9% 500 ML IV SCH ×3 (01:20→21:30)
[2018-12-06] MEDS: Heparin Adult STANDARD Wt-Based Dextrose 5% 25,000 units/500 mL IV SCH ×2 (02:14→11:35)
[2018-12-06] MEDS: FAMOTIDINE 20 MG in SYRINGE 3 ML IV SCH ×2 (04:28→15:23)
[2018-12-06] MEDS: METOPROLOL TARTRATE 1 MG/ML VIAL IV SCH ×3 (06:04→17:00)
[2018-12-06 07:09] LABS: Basophils # (auto) 0.01 K/uL (0-0.2); Basophils % (auto) 0.1 %; Eosinophils # (auto) 0.22 K/uL (0-0.5); Eosinophils % (auto) 2.9 %; Hematocrit (blood only) 35.8 % (37-47); Hemoglobin 11.6 g/dL (12.0-16.0); Immature Granulocytes # (auto) 0.03 K/uL (0.00-0.02); Immature Granulocytes % (auto) 0.4 %; Lymphocytes # (auto) 1.02 K/uL (1.2-3.4); Lymphocytes % (auto) 13.4 %; Mean Corpuscular Hgb Conc 32.4 g/dL (32-36); Mean Corpuscular Volume 86.3 fL (80-100); Mean Platelet Volume 11.4 fL (7.4-10.4); Monocytes # (auto) 1.17 K/uL (0.11-0.59); Monocytes % (auto) 15.4 %; Neutrophils # (auto) 5.14 K/uL (1.4-6.5); Neutrophils % (auto) 67.8 %; Platelet Count 222 K/uL (130-400); RDW Coefficient of Variation 18.4 % (11.5-14.5); Red Blood Count 4.15 M/uL (4.2-5.4); White Blood Count 7.59 K/uL (4.8-10.8)
[2018-12-06 07:24] LABS: BUN Creatinine Ratio 17.5 (10-20); Calcium 9.7 mg/dl (8.5-10.1); Creatinine Clr Calc Pharmacy 19.6 ml/min; Est GFR (African American) 34.3; Est GFR (Non-African American) 29.6; Potassium 3.2 mmol/L (3.5-5.1)
[2018-12-06 07:29] LABS: Partial Thromboplastin Ratio 2.1
[2018-12-06 07:31] LABS: Partial Thromboplastin Time 57.8 Seconds (21.0-31.0)
[2018-12-06] MEDS: ALBUT/IPRATROP 3MG/0.5MG NEB 3 ML VIAL NEB SCH ×4 (07:31→18:50)
[2018-12-06] MEDS: VERAPAMIL HCL 40 MG TAB PO SCH ×3 (08:05→21:31)
[2018-12-06] MEDS ORDERED: POTASSIUM CHLORIDE 20 MEQ/15 ML UDC PO ONE (10:20)
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
[2018-12-06] MEDS: FIBERSOURCE HN 1.2 CAL 1000 ML BAG NG SCH (14:21)
[2018-12-07] MEDS: HydrALAZINE HCL 20 MG/ML VIAL IV SCH ×6 (00:54→21:47)
[2018-12-07] MEDS: ALBUT/IPRATROP 3MG/0.5MG NEB 3 ML VIAL NEB SCH ×5 (01:06→19:51)
[2018-12-07] MEDS: METOPROLOL TARTRATE 1 MG/ML VIAL IV SCH ×3 (01:17→11:44)
[2018-12-07] MEDS: FAMOTIDINE 20 MG in SYRINGE 3 ML IV SCH ×2 (04:32→16:53)
[2018-12-07 06:07] LABS: Hematocrit (blood only) 38.8 % (37-47); Hemoglobin 12.5 g/dL (12.0-16.0); Mean Corpuscular Hgb Conc 32.2 g/dL (32-36); Mean Corpuscular Volume 87.2 fL (80-100); Mean Platelet Volume 11.9 fL (7.4-10.4); Platelet Count 228 K/uL (130-400); RDW Coefficient of Variation 18.4 % (11.5-14.5); RDW Standard Deviation 58.2 fL (36.4-46.3); Red Blood Count 4.45 M/uL (4.2-5.4); White Blood Count 9.82 K/uL (4.8-10.8)
[2018-12-07 06:26] LABS: BUN Creatinine Ratio 14.9 (10-20); Calcium 10.1 mg/dl (8.5-10.1); Creatinine Clr Calc Pharmacy 20.7 ml/min; Est GFR (African American) 36.6; Est GFR (Non-African American) 31.6; Potassium 3.2 mmol/L (3.5-5.1)
[2018-12-07 06:28] LABS: Partial Thromboplastin Ratio 1.7
[2018-12-07 06:39] LABS: Partial Thromboplastin Time 45.8 Seconds (21.0-31.0)
[2018-12-07] MEDS ORDERED: HEPARIN IV BOLUS 2,000 UNITS in SYRINGE 0 ML IV ONE (06:53)
[2018-12-07] MEDS ORDERED: POTASSIUM CHLORIDE 20 MEQ TABCR PO STA (07:29)
[2018-12-07] MEDS: VERAPAMIL HCL 40 MG TAB PO SCH ×3 (08:23→21:47)
[2018-12-07] MEDS: SODIUM CHLORIDE 0.9% 500 ML IV SCH ×2 (08:32→16:56)
--- NOTE | 2018-12-07 10:47 | Family Medicine Progress Note ---
Date of Service December 07, 2018 Assessment & Plan (1) Migraines: (1) Migraines: Ms. Lozada is a 88yo female with a PMHx significant for recent L frontal MCA stroke who presented with a 1 day history of repeated bouts of emesis, fluctuating mental status and was found to be in hypertensive urgency with a UTI on admission. Also has Hx of CHF, PE with pulm infarct, atrial fibrillation, hiatal hernia and asthma and allergies. Acute Encephalopathy -Extensive imaging of the head (Head CT and CTA, Neck CTA, Brain MRI) argues against any acute stroke-like cause. -Neuro- EEG done - suggestive of encephalopathy. -Concern of migraine headache being the inciting event to the hypertensive response and encephalopathy VERSUS Hypertensive episodes likely secondary to uncontrolled BP from discontinuing meds after last stroke - leading to headache and hypertensive encephalopathy -Verapamil added for migraine prophylaxis and will help with BP control. Excedrin Migraine for headaches once she can have oral meds. -Aggressive blood pressure control with IV lopressor and prn hydralazine - r esulted in improved mentation -Tolerated swallowing well. NG tube removed. - Tolerated diet this morning without complications Hypertensive Urgency -s/p recent stroke -BPs better controlled today with scheduled lopressor IV. Will switch to oral Lopressor 25mg BID PO since tolerating PO. - hydralazine with hold parameters. -Continuing verapamil per Neuro recs, tomorrow consider switching to long- acting. -Target BP to normal BP range given no concern for acute stroke currently. Feeding ds - resolved -likely from mental status change. -Speech cleared for oral feeds. NG tube removed. Hypoxia - Patient currently breathing comfortably and oxygenating well on room air -d/c IVF, one time dose of Lasix administered yesterday may have been source of hypoxia -O2 requirement improved today. -Nebs -Resume home inhalers once more alert Abnormal UA -Urine Cx - final NO GROWTH. -Rocephin D/C 12/04 Atrial Fibrillation -Pt with historical dx, on Eliquis at home. -CHADsVasc score of at least 5, requiring anticoagulation (age, sex, Hx of stroke) -Currently in a fib with EKG from 11/30 showing atrial fibrillation with rvr, ventricular rate 110, qtc 441. -Currently on a heparin drip. Will switch back to NOAC/warfarin in am. -Continue lopressor Vomiting/Dehydration -Likely due to viral illness/prodrome of migraines. -resolved acute on chronic renal injury/CKD Stage 4 -Improving, likely at/near baseline -Creatinine 1.54 yesterday. This morning's value improved to 1.46. Hypokalemia -opted to replenish orally since tolerating fluids, KCl 40meq ordered for value of 3.2 today. Mag level was ordered and was normal. Expect to correct with supplemental and now tolerating diet orally. Hypernatremia - Today 147, previous two days values were at 148. - suspect cause of extra-renal GI loss from vomiting added to insensible loss - treatment is to restore access to H2O which now tolerating full liquid diet, expect to correct GERD -Continue famotidine 20mg IV q12hrs FEN- tube feeds per nutrition recs, d/wyatt IVF CODE Status: Full DVT Prophylaxis: IV Heparin (2) Acute encephalopathy: (3) Dehydration: (4) Hypertensive urgency: (5) Vomiting: (6) UTI (urinary tract infection): (7) Chronic anticoagulation: (8) History of pulmonary embolism: (9) GERD (gastroesophageal reflux disease): (10) Hypernatremia: (11) Hypokalemia: Supervising Physician Co-Signing Physician Notes Resident Physician Supervision Note: I independently interviewed and examined the patient and verified the adames history and physical, reviewed labs and image studies, discussed the case with the resident Dr. Bland and agree with the findings and care plan. Subjective Caveat: History Limited by Altered Mental Status. Susie was able to tolerate PO breakfast this morning and also PO KCl pill without noticable aspiration event. Staff notes patient has not been sleeping a nd did not sleep overnight. They note that she continues to pull at IV sites. Susie is alert but does not answer questions appropriately. She does not complain of any pain when asked. Physical Exam Vital Signs (Past 24 Hours): Last Vital Signs Temp 36.8 C 12/07/18 07:07 Pulse 103 H 12/07/18 07:07 Resp 20 12/07/18 07:07 BP 151/82 H 12/07/18 07:07 Pulse Ox 94 12/07/18 07:07 Constitutional: WD/WN, vitals as above cooperative and comfortable Eyes: + anicteric sclerae ENMT: Mouth: + dry oral mucous membranes (mild) Neck: trachea midline Respiratory: normal respiratory effort, lungs clear to auscultation Cardiovascular: Rate/Rhythm: regular rate; + abnormal rhythm irregularly irregular Gastrointestinal (Abdomen): Inspection/Auscultation: normal bowel sounds Percussion/Palpation: abdomen nontender Musculoskeletal: Head/Neck/Chest: normocephalic and head atraumatic Skin: no rashes, warm and dry Neurologic: moves all extremities and awake Psychiatric: Orientation: alert, oriented to person and cooperative; + not oriented to place and + not oriented to time Apperance: appeared stated age Eye Contact: good eye contact follows commands, does pull at IV sites Results & Data Laboratory Results Laboratory Results - last 24 hr 12/07/18 12/07/18 12/07/18 05:16 05:16 05:16 WBC 9.82 RBC 4.45 Hgb 12.5 Hct 38.8 MCV 87.2 MCH 28.1 MCHC 32.2 RDW Std Deviation 58.2 H RDW Coeff of Jennifer 18.4 H Plt Count 228 MPV 11.9 H APTT 45.8 H* PTT Ratio 1.7 Sodium 147 H Potassium 3.2 L Chloride 118 H Carbon Dioxide 20 L Anion Gap 9.0 BUN 22 H Creatinine 1.46 H Est Cr Clr Drug Dosing 20.7 Est GFR ( Amer) 36.6 Est GFR (Non-Af Amer) 31.6 BUN/Creatinine Ratio 14.9 Glucose 117 H Calcium 10.1 Magnesium 12/07/18 05:16 WBC RBC Hgb Hct MCV MCH MCHC RDW Std Deviation RDW Coeff of Jennifer Plt Count MPV APTT PTT Ratio Sodium Potassium Chloride Carbon Dioxide Anion Gap BUN Creatinine Est Cr Clr Drug Dosing Est GFR ( Amer) Est GFR (Non-Af Amer) BUN/Creatinine Ratio Glucose Calcium Magnesium 2.0 Medications Administered Albuterol (Duoneb) 3 ml NEB QIDR RHONDA Stop: 01/02/19 19:59 Last Admin: 12/07/18 06:55 Dose: 3 ml Documented by: [id number] Admin: 12/07/18 01:06 Dose: 3 ml Documented by: [id number] Admin: 12/06/18 18:50 Dose: 3 ml Documented by: [id number] Admin: 12/06/18 15:44 Dose: 3 ml Documented by: [id number] Admin: 12/06/18 11:52 Dose: 3 ml Documented by: [id number] Admin: 12/06/18 07:31 Dose: 3 ml Documented by: [id number] Admin: 12/05/18 19:38 Dose: 3 ml Documented by: [id number] Admin: 12/05/18 15:31 Dose: 3 ml Documented by: [id number] Admin: 12/05/18 11:33 Dose: 3 ml Documented by: [id number] Admin: 12/05/18 07:01 Dose: 3 ml Documented by: [id number] Admin: 12/04/18 19:30 Dose: 3 ml Documented by: [id number] Admin: 12/04/18 15:49 Dose: 3 ml Documented by: [id number] Admin: 12/04/18 11:06 Dose: 3 ml Documented by: [id number] Admin: 12/04/18 07:29 Dose: 3 ml Documented by: [id number] Admin: 12/03/18 20:17 Dose: 3 ml Documented by: [id number] Enteral Nutritional Formula (Fibersource Hn 1.2 Titus Liquid) 1,000 ml NG Q24H RHONDA; Protocol Stop: 01/04/19 13:29 Last Admin: 12/06/18 14:21 Dose: Not Given Documented by: [id number] Admin: 12/05/18 16:06 Dose: Not Given Documented by: [id number] Hydralazine HCl (Hydralazine Hcl) 5 mg IV Q4H RHONDA Stop: 01/02/19 16:44 Last Admin: 12/07/18 08:23 Dose: Not Given Documented by: [id number] Admin: 12/07/18 04:33 Dose: Not Given Documented by: [id number] Admin: 12/07/18 00:54 Dose: Not Given Documented by: [id number] Admin: 12/06/18 21:29 Dose: Not Given Documented by: [id number] Admin: 12/06/18 16:06 Dose: Not Given Documented by: [id number] Admin: 12/06/18 11:33 Dose: Not Given Documented by: [id number] Admin: 12/06/18 07:52 Dose: Not Given Documented by: [id number] Admin: 12/06/18 04:28 Dose: Not Given Documented by: [id number] Admin: 12/06/18 01:20 Dose: Not Given Documented by: [id number] Admin: 12/05/18 20:54 Dose: Not Given Documented by: [id number] Admin: 12/05/18 16:06 Dose: Not Given Documented by: [id number] Admin: 12/05/18 12:54 Dose: Not Given Documented by: [id number] Admin: 12/05/18 08:56 Dose: Not Given Documented by: [id number] Admin: 12/05/18 05:34 Dose: Not Given Documented by: [id number] Admin: 12/05/18 00:55 Dose: Not Given Documented by: [id number] Admin: 12/04/18 20:47 Dose: 5 mg Documented by: [id number] Admin: 12/04/18 16:21 Dose: Not Given Documented by: [id number] Admin: 12/04/18 15:15 Dose: Not Given Documented by: [id number] Admin: 12/04/18 08:53 Dose: 5 mg Documented by: [id number] Admin: 12/04/18 05:09 Dose: Not Given Documented by: [id number] Admin: 12/04/18 01:32 Dose: 5 mg Documented by: [id number] Admin: 12/03/18 21:42 Dose: 5 mg Documented by: [id number] Admin: 12/03/18 17:00 Dose: 5 mg Documented by: [id number] Famotidine 20 mg/ Syringe 5 mls @ 2.5 mls/min IV Q12H RHONDA Stop: 12/31/18 03:59 Last Admin: 12/07/18 04:32 Dose: 2.5 mls/min Documented by: [id number] Admin: 12/06/18 15:23 Dose: 2.5 mls/min Documented by: [id number] Admin: 12/06/18 04:28 Dose: 2.5 mls/min Documented by: [id number] Admin: 12/05/18 15:40 Dose: 2.5 mls/min Documented by: [id number] Admin: 12/05/18 04:29 Dose: 2.5 mls/min Documented by: [id number] Admin: 12/04/18 18:17 Dose: 2.5 mls/min Documented by: [id number] Admin: 12/04/18 04:14 Dose: 2.5 mls/min Documented by: [id number] Admin: 12/03/18 15:42 Dose: 2.5 mls/min Documented by: [id number] Admin: 12/03/18 03:26 Dose: 2.5 mls/min Documented by: [id number] Admin: 12/02/18 16:14 Dose: 2.5 mls/min Documented by: [id number] Admin: 12/02/18 03:56 Dose: 2.5 mls/min Documented by: [id number] Admin: 12/01/18 17:13 Dose: 2.5 mls/min Documented by: [id number] Admin: 12/01/18 04:19 Dose: 2.5 mls/min Documented by: [id number] Heparin Sodium/Dextrose (Heparin Sodium/Dextrose) 25,000 units in 500 mls @ 15 mls/hr IV .Q24H RHONDA; Protocol Stop: 12/31/18 11:29 Last Titration: 12/07/18 06:51 Dose: 750 units/hr, 15 mls/hr Documented by: [id number] Cosigned by: [id number] Titration: 12/06/18 22:56 Dose: 650 units/hr, 13 mls/hr Documented by: [id number] Cosigned by: [id number] Titration: 12/06/18 19:01 Dose: 650 units/hr, 13 mls/hr Documented by: [id number] Cosigned by: [id number] Admin: 12/06/18 11:35 Dose: Not Given Documented by: [id number] Titration: 12/06/18 07:35 Dose: 650 units/hr, 13 mls/hr Documented by: [id number] Cosigned by: [id number] Titration: 12/06/18 06:44 Dose: 650 units/hr, 13 mls/hr Documented by: [id number] Cosigned by: [id number] Admin: 12/06/18 02:14 Dose: 650 units/hr, 13 mls/hr Documented by: [id number] Cosigned by: [id number] Titration: 12/06/18 02:14 Dose: 650 units/hr, 13 mls/hr Documented by: [id number] Cosigned by: [id number] Titration: 12/05/18 19:07 Dose: 650 units/hr, 13 mls/hr Documented by: [id number] Cosigned by: [id number] Titration: 12/05/18 08:11 Dose: 650 units/hr, 13 mls/hr Documented by: [id number] Cosigned by: [id number] Titration: 12/05/18 07:08 Dose: 550 units/hr, 11 mls/hr Documented by: [id number] Cosigned by: [id number] Titration: 12/04/18 23:28 Dose: 550 units/hr, 11 mls/hr Documented by: [id number] Cosigned by: [id number] Titration: 12/04/18 15:16 Dose: 550 units/hr, 11 mls/hr Documented by: [id number] Cosigned by: [id number] Admin: 12/04/18 15:15 Dose: Not Given Documented by: [id number] Admin: 12/04/18 10:32 Dose: 550 units/hr, 11 mls/hr Documented by: [id number] Cosigned by: [id number] Titration: 12/04/18 10:32 Dose: 550 units/hr, 11 mls/hr Documented by: [id number] Cosigned by: [id number] Titration: 12/04/18 08:57 Dose: 550 units/hr, 11 mls/hr Documented by: [id number] Cosigned by: [id number] Titration: 12/04/18 06:57 Dose: 550 units/hr, 11 mls/hr Documented by: [id number] Cosigned by: [id number] Titration: 12/03/18 19:14 Dose: 550 units/hr, 11 mls/hr Documented by: [id number] Cosigned by: [id number] Titration: 12/03/18 12:39 Dose: 550 units/hr, 11 mls/hr Documented by: [id number] Cosigned by: [id number] Titration: 12/03/18 07:31 Dose: 550 units/hr, 11 mls/hr Documented by: [id number] Cosigned by: [id number] Titration: 12/02/18 23:30 Dose: 550 units/hr, 11 mls/hr Documented by: [id number] Cosigned by: [id number] Titration: 12/02/18 22:15 Dose: 550 units/hr, 11 mls/hr Documented by: [id number] Cosigned by: [id number] Titration: 12/02/18 21:10 Dose: 0 units/hr, 0 mls/hr Documented by: [id number] Cosigned by: [id number] Admin: 12/02/18 20:06 Dose: 650 units/hr, 13 mls/hr Documented by: [id number] Cosigned by: [id number] Titration: 12/02/18 20:06 Dose: 650 units/hr, 13 mls/hr Documented by: [id number] Cosigned by: [id number] Titration: 12/02/18 13:36 Dose: 650 units/hr, 13 mls/hr Documented by: [id number] Cosigned by: [id number] Titration: 12/02/18 07:13 Dose: 700 units/hr, 14 mls/hr Documented by: [id number] Cosigned by: [id number] Titration: 12/02/18 06:37 Dose: 700 units/hr, 14 mls/hr Documented by: [id number] Cosigned by: [id number] Titration: 12/02/18 03:49 Dose: 0 units/hr, 0 mls/hr Documented by: [id number] Cosigned by: [id number] Titration: 12/01/18 21:10 Dose: 850 units/hr, 17 mls/hr Documented by: [id number] Cosigned by: [id number] Titration: 12/01/18 20:40 Dose: 0 units/hr, 0 mls/hr Documented by: [id number] Cosigned by: [id number] Titration: 12/01/18 19:11 Dose: 950 units/hr, 19 mls/hr Documented by: [id number] Cosigned by: [id number] Admin: 12/01/18 13:02 Dose: 950 units/hr, 19 mls/hr Documented by: [id number] Cosigned by: [id number] Acetaminophen (Ofirmev) 1,000 mg in 100 mls @ 400 mls/hr IV Q8H PRN PRN Reason: Headache Stop: 01/01/19 09:50 Last Infusion: 12/03/18 12:15 Dose: 0 mls/hr Documented by: [id number] Admin: 12/03/18 11:59 Dose: 400 mls/hr Documented by: [id number] Infusion: 12/02/18 20:32 Dose: 0 mls/hr Documented by: [id number] Admin: 12/02/18 20:17 Dose: 400 mls/hr Documented by: [id number] Infusion: 12/02/18 11:50 Dose: 0 mls/hr Documented by: [id number] Admin: 12/02/18 11:35 Dose: 400 mls/hr Documented by: [id number] Sodium Chloride (Nss) 500 mls @ 50 mls/hr IV .Q10H RHONDA Stop: 01/03/19 18:59 Last Admin: 12/07/18 08:32 Dose: 50 mls/hr Documented by: [id number] Infusion: 12/07/18 07:30 Dose: 50 mls/hr Documented by: [id number] Infusion: 12/07/18 05:50 Dose: 50 mls/hr Documented by: [id number] Admin: 12/06/18 21:30 Dose: 50 mls/hr Documented by: [id number] Infusion: 12/06/18 20:42 Dose: 50 mls/hr Documented by: [id number] Admin: 12/06/18 10:42 Dose: 50 mls/hr Documented by: [id number] Infusion: 12/06/18 10:42 Dose: 50 mls/hr Documented by: [id number] Admin: 12/06/18 01:20 Dose: 50 mls/hr Documented by: [id number] Infusion: 12/06/18 01:20 Dose: 50 mls/hr Documented by: [id number] Admin: 12/05/18 15:40 Dose: 50 mls/hr Documented by: [id number] Infusion: 12/05/18 15:40 Dose: 50 mls/hr Documented by: [id number] Admin: 12/05/18 06:06 Dose: 50 mls/hr Documented by: [id number] Infusion: 12/05/18 06:06 Dose: 50 mls/hr Documented by: [id number] Admin: 12/04/18 21:55 Dose: 50 mls/hr Documented by: [id number] Metoprolol Tartrate (Lopressor) 2.5 mg IV Q6 RHONDA Stop: 01/04/19 11:59 Last Admin: 12/07/18 06:07 Dose: 2.5 mg Documented by: [id number] Admin: 12/07/18 01:17 Dose: 2.5 mg Documented by: [id number] Admin: 12/06/18 17:00 Dose: 2.5 mg Documented by: [id number] Admin: 12/06/18 11:46 Dose: 2.5 mg Documented by: [id number] Admin: 12/06/18 06:04 Dose: 2.5 mg Documented by: [id number] Admin: 12/05/18 23:59 Dose: Not Given Documented by: [id number] Admin: 12/05/18 17:09 Dose: Not Given Documented by: [id number] Admin: 12/05/18 13:17 Dose: 2.5 mg Documented by: [id number] Verapamil HCl (Calan) 60 mg PO TID RHONDA Stop: 01/04/19 16:59 Last Admin: 12/07/18 08:23 Dose: 60 mg Documented by: [id number] Admin: 12/06/18 21:31 Dose: 60 mg Documented by: [id number] Admin: 12/06/18 15:02 Dose: 60 mg Documented by: [id number] Admin: 12/06/18 08:05 Dose: 60 mg Documented by: [id number] Admin: 12/05/18 21:02 Dose: 60 mg Documented by: [id number] Admin: 12/05/18 17:17 Dose: 60 mg Documented by: [id number] Resident Activity Tracking Resident Involvement: Resident Care Provided Care Provided: Adult Hospital Medicine
[2018-12-07 13:25] LABS: Partial Thromboplastin Time 80.3 Seconds (21.0-31.0)
[2018-12-07] MEDS: Heparin Adult STANDARD Wt-Based Dextrose 5% 25,000 units/500 mL IV SCH (16:56)
[2018-12-07 21:23] LABS: Partial Thromboplastin Time 53.5 Seconds (21.0-31.0)
[2018-12-07] MEDS: METOPROLOL TARTRATE 25 MG TAB PO SCH (21:48)
[2018-12-08] MEDS: HydrALAZINE HCL 20 MG/ML VIAL IV SCH ×7 (00:36→21:40)
[2018-12-08] MEDS: SODIUM CHLORIDE 0.9% 500 ML IV SCH ×3 (01:59→23:02)
[2018-12-08] MEDS: FAMOTIDINE 20 MG in SYRINGE 3 ML IV SCH ×2 (04:30→17:06)
[2018-12-08 06:00] LABS: Mean Corpuscular Hgb Conc 32.2 g/dL (32-36); Mean Platelet Volume 11.7 fL (7.4-10.4); Platelet Count 228 K/uL (130-400)
[2018-12-08 06:26] LABS: BUN Creatinine Ratio 16.9 (10-20); Calcium 9.9 mg/dl (8.5-10.1); Creatinine Clr Calc Pharmacy 21.7 ml/min; Est GFR (African American) 38.8; Est GFR (Non-African American) 33.5; Magnesium 1.8 mg/dl (1.8-2.4)
[2018-12-08 06:27] LABS: Hematocrit (blood only) 38.2 % (37-47); Hemoglobin 12.3 g/dL (12.0-16.0); Mean Corpuscular Volume 87.8 fL (80-100); Partial Thromboplastin Ratio 1.6; Partial Thromboplastin Time 43.1 Seconds (21.0-31.0); RDW Coefficient of Variation 18.7 % (11.5-14.5); RDW Standard Deviation 59.7 fL (36.4-46.3); Red Blood Count 4.35 M/uL (4.2-5.4); White Blood Count 8.09 K/uL (4.8-10.8)
[2018-12-08 06:28] LABS: Basophils # (auto) 0.01 K/uL (0-0.2); Basophils % (auto) 0.1 %; Echinocytes 2+; Eosinophils # (auto) 0.28 K/uL (0-0.5); Eosinophils % (auto) 3.5 %; Immature Granulocytes # (auto) 0.04 K/uL (0.00-0.02); Immature Granulocytes % (auto) 0.5 %; Lymphocytes # (auto) 1.23 K/uL (1.2-3.4); Lymphocytes % (auto) 15.2 %; Monocytes # (auto) 1.18 K/uL (0.11-0.59); Monocytes % (auto) 14.6 %; Neutrophils # (auto) 5.35 K/uL (1.4-6.5); Neutrophils % (auto) 66.1 %; Ovalocytes 1+
[2018-12-08] MEDS: ALBUT/IPRATROP 3MG/0.5MG NEB 3 ML VIAL NEB SCH ×4 (07:00→19:08)
[2018-12-08] MEDS ORDERED: HEPARIN IV BOLUS 2,000 UNITS in SYRINGE 0 ML IV ONE (07:00)
[2018-12-08] MEDS: ACETAMINOPHEN 1,000 MG/100 ML VIAL IV PRN (07:19)
[2018-12-08] MEDS: VERAPAMIL HCL 40 MG TAB PO SCH ×3 (07:20→21:40)
[2018-12-08] MEDS: METOPROLOL TARTRATE 25 MG TAB PO SCH ×2 (07:20→21:39)
--- NOTE | 2018-12-08 08:10 | Family Medicine Progress Note ---
Date of Service December 08, 2018 Assessment & Plan (1) Acute encephalopathy: Ms. Lozada is a 88yo female with a PMHx significant for recent L frontal MCA stroke who presented with a 1 day history of repeated bouts of emesis, fluctuating mental status and was found to be in hypertensive urgency with a UTI on admission. Also has Hx of CHF, PE with pulm infarct, atrial fibrillation, hiatal hernia and asthma and allergies. Acute Encephalopathy -Pt still not back to baseline, waxing and waning. -Continue PO Verapamil (switch to XR today) for migraine prophylaxis, PO lopressor 25mg BID, prn hydralazine IV -Extensive imaging of the head (Head CT and CTA, Neck CTA, Brain MRI) argues against any acute stroke-like cause. -Neuro- EEG done - suggestive of encephalopathy. -Concern of migraine headache being the inciting event to the hypertensive response and encephalopathy VERSUS Hypertensive episodes likely secondary to uncontrolled BP from discontinuing meds after last stroke - leading to headache and hypertensive encephalopathy. -Speech recs- recommending soft, bite sized finger food as much as possible with all aspiration precautions. -Pt currently taking PO meds and food with IVF 500mls @50 running. -PT/OT-appreciate recs Hypertensive Urgency -s/p recent stroke -Currently being treated with Verapamil, Lopressor, and Hydralazine with hold parameters. -Target BP to normal BP range given no concern for acute stroke currently. Hypoxia -Patient currently breathing comfortably and oxygenating well on room air -Resume home inhalers as needed Atrial Fibrillation -Pt with historical dx, on Eliquis at home. -CHADsVasc score of at least 5, requiring anticoagulation (age, sex, Hx of stroke) -Would consider transitioning to Lovenox given oropharyngeal difficulty. -Currently on a heparin drip. -Currently rate controlled. -Continue lopressor Acute on chronic renal injury/CKD Stage 4 -Improving and downtrending -likely at/near baseline GERD -Continue famotidine 20mg IV q12hrs RESOLVED ISSUES Vomiting/Dehydration--RESOLVED -Likely due to viral illness/prodrome of migraines. Abnormal UA-RESOLVED -Urine Cx - final NO GROWTH. -Rocephin D/C 12/04 Hypokalemia--RESOLVED -opted to replenish orally since tolerating fluids -KCl 40meq ordered for value of 3.2 today. - Mag level was ordered and was normal. Hypernatremia--RESOLVED - Today 144, previous two days values were at 148. - suspect cause of extra-renal GI loss from vomiting added to insensible loss - treatment is to restore access to H2O which now tolerating full liquid diet, expect to correct CODE Status: Full FEN: Regular, finger foods, soft, bite sized. DVT Prophylaxis: IV Heparin Supervising Physician Co-Signing Physician Notes I personally examined the patient and verified all adames points of history and exam, discussed case, and agree with decision making with Dr Riley. notes she is doing better. She is eating better, she got up and participated with therapy. She does still seem to be a bit confused. Vitals noted, in general she is in no distress. HEENT normocephalic atraumatic mucous membranes are moist. Breathing is unlabored no accessory muscle use. Skin shows no rashes no pallor or icterus. Neuro shows no focal deficits. Hypertensive crisis/hypertensive encephalopathyappears to be the precipitating event of this admission. Clinically she is improving. See below as far as hypertension. Fortunately imaging of her brain does not show any type of a hypertensive stroke Uncontrolled hypertensioncontinue to titrate medications. for now continue to adjust medications - starting ARB quite reasonable - follow Cr closely but would have less fall-risk than increasing verapamil or metoprolol further (can do if needed) DVT proph - anticoagulation Subjective Pt was seated in bed, awake but not oriented. Nonresponsive to verbal questions. Review of Systems Unobtainable due to cognitive status Physical Exam Vital Signs (Past 24 Hours): Last Vital Signs Temp 36.5 C 12/08/18 06:58 Pulse 91 H 12/08/18 07:00 Resp 22 12/08/18 07:00 BP 199/78 H 12/08/18 06:58 Pulse Ox 93 12/08/18 07:00 General: Alert, not oriented. No acute distress HEENT: NC/AT Chest: Nontender to palpation. CV: RRR, Normal s1, s2 Resp: Breath sounds clear with some scattered wheezes. Abdomen: Soft, nontender. No guarding. Extremities: No edema appreciated in lower extremities bilaterally. Results & Data Laboratory Results Laboratory Results - last 24 hr 12/07/18 12/07/18 12/08/18 12:44 19:15 05:24 WBC RBC Hgb Hct MCV MCH MCHC RDW Std Deviation RDW Coeff of Jennifer Plt Count MPV Immature Gran % (Auto) Neut % (Auto) Lymph % (Auto) [place] % (Auto) Eos % (Auto) Baso % (Auto) Immature Gran # (Auto) Neut # (Auto) Lymph # (Auto) [place] # (Auto) Eos # (Auto) Baso # (Auto) Ovalocytes Echinocytes APTT 80.3 H* 53.5 H* 43.1 H PTT Ratio 3.0 2.0 1.6 Sodium Potassium Chloride Carbon Dioxide Anion Gap BUN Creatinine Est Cr Clr Drug Dosing Est GFR ( Amer) Est GFR (Non-Af Amer) BUN/Creatinine Ratio Glucose Calcium Magnesium 12/08/18 12/08/18 05:24 05:24 WBC 8.09 RBC 4.35 Hgb 12.3 Hct 38.2 MCV 87.8 MCH 28.3 MCHC 32.2 RDW Std Deviation 59.7 H RDW Coeff of Jennifer 18.7 H Plt Count 228 MPV 11.7 H Immature Gran % (Auto) 0.5 Neut % (Auto) 66.1 Lymph % (Auto) 15.2 [place] % (Auto) 14.6 Eos % (Auto) 3.5 Baso % (Auto) 0.1 Immature Gran # (Auto) 0.04 H Neut # (Auto) 5.35 Lymph # (Auto) 1.23 [place] # (Auto) 1.18 H Eos # (Auto) 0.28 Baso # (Auto) 0.01 Ovalocytes 1+ Echinocytes 2+ APTT PTT Ratio Sodium 144 Potassium 4.0 D Chloride 118 H Carbon Dioxide 20 L Anion Gap 6.0 BUN 24 H Creatinine 1.39 H Est Cr Clr Drug Dosing 21.7 Est GFR ( Amer) 38.8 Est GFR (Non-Af Amer) 33.5 BUN/Creatinine Ratio 16.9 Glucose 124 H Calcium 9.9 Magnesium 1.8 Medications Administered Home Medications albuterol sulfate [ProAir HFA] 2 puff INHALATION Q6H PRN 10/19/18 [History Confirmed 11/30/18] budesonide-formoterol 2 puff INHALATION BID 10/19/18 [History Confirmed 11/30/18] calcium carbonate [Calcium 500] 500 mg PO DAILY 10/19/18 [History Confirmed 11/30/18] pantoprazole 40 mg PO DAILY 10/19/18 [History Confirmed 11/30/18] apixaban [Eliquis] 2.5 mg PO Q12 11/06/18 [History Confirmed 11/30/18] acetaminophen-caffeine [Excedrin Tension Headache] 2 tab PO AMPM 11/30/18 [History Confirmed 11/30/18] amitriptyline 10 mg PO HS 11/30/18 [History Confirmed 11/30/18] atorvastatin 0 mg PO DAILY 11/30/18 [History Confirmed 11/30/18] Active Medications Albuterol (Duoneb) 3 ml NEB QIDR RHONDA Stop: 01/02/19 19:59 Last Admin: 12/08/18 11:10 Dose: 3 ml Documented by: Albuterol (Ventolin 0.083% 2.5mg/3ml) 2.5 mg NEB Q2R PRN PRN Reason: Shortness Of Breath Or Wheezing Stop: 01/02/19 18:19 Hydralazine HCl (Hydralazine Hcl) 5 mg IV Q4H RHONDA Stop: 01/02/19 16:44 Last Admin: 12/08/18 12:17 Dose: 5 mg Documented by: Famotidine 20 mg/ Syringe 5 mls @ 2.5 mls/min IV Q12H RHONDA Stop: 12/31/18 03:59 Last Admin: 12/08/18 04:30 Dose: 2.5 mls/min Documented by: Heparin Sodium/Dextrose (Heparin Sodium/Dextrose) 25,000 units in 500 mls @ 15 mls/hr IV .Q24H RHONDA; Protocol Stop: 12/31/18 11:29 Last Titration: 12/08/18 06:50 Dose: 750 units/hr, 15 mls/hr Documented by: Acetaminophen (Ofirmev) 1,000 mg in 100 mls @ 400 mls/hr IV Q8H PRN PRN Reason: Headache Stop: 01/01/19 09:50 Last Infusion: 12/08/18 07:35 Dose: Infused Documented by: Sodium Chloride (Nss) 500 mls @ 50 mls/hr IV .Q10H RHONDA Stop: 01/03/19 18:59 Last Admin: 12/08/18 12:16 Dose: 50 mls/hr Documented by: Metoprolol Tartrate (Lopressor) 25 mg PO BID [facility] Stop: 01/06/19 20:59 Last Admin: 12/08/18 07:20 Dose: 25 mg Documented by: Ondansetron HCl (Zofran) 4 mg IV Q6H PRN PRN Reason: Nausea Stop: 12/30/18 22:24 Verapamil HCl (Calan) 60 mg PO TID [facility] Stop: 01/04/19 16:59 Last Admin: 12/08/18 07:20 Dose: 60 mg Documented by:
[2018-12-08 14:53] LABS: Partial Thromboplastin Ratio 3.1
[2018-12-08 14:56] LABS: Partial Thromboplastin Time 84.3 Seconds (21.0-31.0)
[2018-12-08] MEDS: Heparin Adult STANDARD Wt-Based Dextrose 5% 25,000 units/500 mL IV SCH (15:02)
[2018-12-08] MEDS: APIXABAN 2.5 MG TAB PO SCH ×2 (17:51→21:39)
[2018-12-08] MEDS: LOSARTAN POTASSIUM 25 MG TAB PO SCH (21:40)
[2018-12-09] MEDS: HydrALAZINE HCL 20 MG/ML VIAL IV SCH ×6 (01:08→20:47)
[2018-12-09] MEDS: FAMOTIDINE 20 MG in SYRINGE 3 ML IV SCH (04:48)
[2018-12-09] MEDS: ALBUT/IPRATROP 3MG/0.5MG NEB 3 ML VIAL NEB SCH ×4 (06:56→19:41)
[2018-12-09 07:03] LABS: Basophils # (auto) 0.01 K/uL (0-0.2); Basophils % (auto) 0.1 %; Eosinophils # (auto) 0.31 K/uL (0-0.5); Eosinophils % (auto) 3.6 %; Hematocrit (blood only) 37.2 % (37-47); Immature Granulocytes # (auto) 0.04 K/uL (0.00-0.02); Immature Granulocytes % (auto) 0.5 %; Lymphocytes # (auto) 1.19 K/uL (1.2-3.4); Lymphocytes % (auto) 13.7 %; Mean Corpuscular Hgb Conc 32.3 g/dL (32-36); Mean Corpuscular Volume 87.3 fL (80-100); Monocytes # (auto) 1.31 K/uL (0.11-0.59); Monocytes % (auto) 15.1 %; Neutrophils # (auto) 5.82 K/uL (1.4-6.5); Platelet Count 214 K/uL (130-400); RDW Coefficient of Variation 18.8 % (11.5-14.5); RDW Standard Deviation 59.6 fL (36.4-46.3); Red Blood Count 4.26 M/uL (4.2-5.4); White Blood Count 8.68 K/uL (4.8-10.8)
[2018-12-09 07:38] LABS: BUN Creatinine Ratio 15.3 (10-20); Calcium 10.1 mg/dl (8.5-10.1); Creatinine Clr Calc Pharmacy 20.7 ml/min; Est GFR (African American) 36.6; Est GFR (Non-African American) 31.6
[2018-12-09] MEDS: APIXABAN 2.5 MG TAB PO SCH ×2 (08:58→20:35)
[2018-12-09] MEDS: LOSARTAN POTASSIUM 25 MG TAB PO SCH (08:58)
[2018-12-09] MEDS: VERAPAMIL HCL 180 MG TABCR PO SCH (08:58)
[2018-12-09] MEDS: METOPROLOL TARTRATE 25 MG TAB PO SCH ×2 (08:59→20:35)
[2018-12-09] MEDS: SODIUM CHLORIDE 0.9% 500 ML IV SCH ×2 (08:59→19:44)
--- NOTE | 2018-12-09 17:41 | Family Medicine Progress Note ---
Date of Service December 09, 2018 Assessment & Plan (1) Acute encephalopathy: Ms. Lozada is a 88yo female with a PMHx significant for recent L frontal MCA stroke who presented with a 1 day history of repeated bouts of emesis, fluctuating mental status and was found to be in hypertensive urgency with a ? UTI on admission. Also has Hx of CHF, PE with pulm infarct, atrial fibrillation, hiatal hernia and asthma and allergies. Discharge tomorrow to [facility] barring acute changes. Acute Encephalopathy -Pt much improved today. -Continue PO Verapamil XR for migraine prophylaxis, PO lopressor 25mg BID, losartan 25mg. -Prn hydralazine IV with hold parameters for BP <160. Will d/c on discharge. -Extensive imaging of the head (Head CT and CTA, Neck CTA, Brain MRI) argues against any acute stroke-like cause. -Neuro- EEG done - suggestive of encephalopathy. -Concern of migraine headache being the inciting event to the hypertensive response and encephalopathy VERSUS Hypertensive episodes likely secondary to uncontrolled BP from discontinuing meds after last stroke - leading to headache and hypertensive encephalopathy. -Speech recs- recommending soft, bite sized finger food as much as possible with all aspiration precautions. -Pt currently taking PO meds and food with IVF 500mls @50 running. -PT/OT-appreciate recs of inpt rehab need. Accepted at [facility]. Hypertensive Urgency -s/p recent stroke -Currently being treated with Verapamil, Lopressor, and Lisinopril -Hydralazine with hold parameters. -Target BP to normal BP range given no concern for acute stroke currently. Hypoxia -Patient currently breathing comfortably and oxygenating well on room air -Resume home inhalers as needed Atrial Fibrillation -Pt with historical dx, on Eliquis at home. -CHADsVasc score of at least 5, requiring anticoagulation (age, sex, Hx of stroke) -On Eliquis PO at home dose 2.5mg BID -Currently rate controlled. -Continue lopressor Acute on chronic renal injury/CKD Stage 4 -Improved and currently at baseline. GERD -Continue famotidine PO RESOLVED ISSUES Vomiting/Dehydration--RESOLVED -Likely due to viral illness/prodrome of migraines. Abnormal UA-RESOLVED -Urine Cx - final NO GROWTH. -Rocephin D/C 12/04 Hypokalemia--RESOLVED -opted to replenish orally since tolerating fluids -KCl 40meq ordered for value of 3.2 today. - Mag level was ordered and was normal. Hypernatremia--RESOLVED - Today 144, previous two days values were at 148. - suspect cause of extra-renal GI loss from vomiting added to insensible loss - treatment is to restore access to H2O which now tolerating full liquid diet, expect to correct CODE Status: Full FEN: Regular, finger foods, soft, bite sized. DVT Prophylaxis: On [facility] Supervising Physician Co-Signing Physician Notes I personally examined the patient and verified all adames points of history and exam, discussed case, and agree with decision making with Dr Riley. Daughter present and helping patient, pleased with her progress. All in agreement of the plan to go to [facility]. Vitals noted, in general she is in no distress. HEENT normocephalic atraumatic mucous membranes are moist. Breathing is unlabored no accessory muscle use. Skin shows no rashes no pallor or icterus. Neuro shows no focal deficits. Hypertensive crisis/hypertensive encephalopathyappears to be the precipitating event of this admission. Clinically she is improving. See below as far as hypertension. Fortunately imaging of her brain does not show any type of a hypertensive stroke she does seem to be improving Uncontrolled hypertensioncontinue to titrate medications. for now continue to adjust medications -tolerating initiation of ARB well so far- follow Cr closely but would have less fall-risk than increasing verapamil or metoprolol further (can do if needed) Altered mental statusappears to have initially been due to the hypertensive encephalopathy, now appears to have faded more towards a hospital-acquired delirium type picture. DVT proph - anticoagulation Awaiting placement at rehab Subjective Pt more awake and alert today. Speech more understandable. Family at bedside- wishes another night to ensure stability before discharge tomorrow to [facility]. Review of Systems Unobtainable due to cognitive status Physical Exam Vital Signs (Past 24 Hours): Last Vital Signs Temp 36.4 C L 12/09/18 15:41 Pulse 70 12/09/18 15:50 Resp 20 12/09/18 15:50 BP 134/79 12/09/18 15:41 Pulse Ox 91 12/09/18 15:50 General: Alert. No acute distress HEENT: NC/AT Chest: Nontender to palpation. CV: RRR, Normal s1, s2 Resp: Breath sounds clear with some scattered wheezes on back. Abdomen: Soft, nontender. No guarding. Extremities: No edema appreciated in lower extremities bilaterally. Results & Data Laboratory Results Laboratory Results - last 24 hr 12/09/18 12/09/18 12/09/18 06:52 06:52 08:10 WBC 8.68 RBC 4.26 Hgb 12.0 Hct 37.2 MCV 87.3 MCH 28.2 MCHC 32.3 RDW Std Deviation 59.6 H RDW Coeff of Jennifer 18.8 H Plt Count 214 MPV 11.0 H Immature Gran % (Auto) 0.5 Neut % (Auto) 67.0 Lymph % (Auto) 13.7 [place] % (Auto) 15.1 Eos % (Auto) 3.6 Baso % (Auto) 0.1 Immature Gran # (Auto) 0.04 H Neut # (Auto) 5.82 Lymph # (Auto) 1.19 L [place] # (Auto) 1.31 H Eos # (Auto) 0.31 Baso # (Auto) 0.01 Sodium 144 Potassium Chloride 118 H Carbon Dioxide 22 Anion Gap 4.0 BUN 22 H Creatinine 1.46 H Est Cr Clr Drug Dosing 20.7 Est GFR ( Amer) 36.6 Est GFR (Non-Af Amer) 31.6 BUN/Creatinine Ratio 15.3 Glucose 114 H Calcium 10.1 12/09/18 08:10 WBC RBC Hgb Hct MCV MCH MCHC RDW Std Deviation RDW Coeff of Jennifer Plt Count MPV Immature Gran % (Auto) Neut % (Auto) Lymph % (Auto) [place] % (Auto) Eos % (Auto) Baso % (Auto) Immature Gran # (Auto) Neut # (Auto) Lymph # (Auto) [place] # (Auto) Eos # (Auto) Baso # (Auto) Sodium Potassium 3.9 Chloride Carbon Dioxide Anion Gap BUN Creatinine Est Cr Clr Drug Dosing Est GFR ( Amer) Est GFR (Non-Af Amer) BUN/Creatinine Ratio Glucose Calcium Medications Administered Home Medications albuterol sulfate [ProAir HFA] 2 puff INHALATION Q6H PRN 10/19/18 [History Confirmed 11/30/18] budesonide-formoterol 2 puff INHALATION BID 10/19/18 [History Confirmed 11/30/18] calcium carbonate [Calcium 500] 500 mg PO DAILY 10/19/18 [History Confirmed 11/30/18] pantoprazole 40 mg PO DAILY 10/19/18 [History Confirmed 11/30/18] apixaban [Eliquis] 2.5 mg PO Q12 11/06/18 [History Confirmed 11/30/18] acetaminophen-caffeine [Excedrin Tension Headache] 2 tab PO AMPM 11/30/18 [History Confirmed 11/30/18] amitriptyline 10 mg PO HS 11/30/18 [History Confirmed 11/30/18] atorvastatin 0 mg PO DAILY 11/30/18 [History Confirmed 11/30/18] Active Medications Albuterol (Duoneb) 3 ml NEB QIDR RHONDA Stop: 01/02/19 19:59 Last Admin: 12/09/18 15:50 Dose: 3 ml Documented by: Albuterol (Ventolin 0.083% 2.5mg/3ml) 2.5 mg NEB Q2R PRN PRN Reason: Shortness Of Breath Or Wheezing Stop: 01/02/19 18:19 Last Admin: 12/09/18 05:11 Dose: 2.5 mg Documented by: Apixaban (Eliquis) 2.5 mg PO BID [facility] Stop: 01/07/19 15:59 Last Admin: 12/09/18 08:58 Dose: 2.5 mg Documented by: Famotidine (Pepcid) 20 mg PO BID [facility] Stop: 01/08/19 20:59 Hydralazine HCl (Hydralazine Hcl) 5 mg IV Q4 RHONDA Stop: 01/08/19 15:59 Last Admin: 12/09/18 15:44 Dose: Not Given Documented by: Acetaminophen (Ofirmev) 1,000 mg in 100 mls @ 400 mls/hr IV Q8H PRN PRN Reason: Headache Stop: 01/01/19 09:50 Last Infusion: 12/08/18 07:35 Dose: Infused Documented by: Sodium Chloride (Nss) 500 mls @ 50 mls/hr IV .Q10H [facility] Stop: 01/03/19 18:59 Last Admin: 12/09/18 08:59 Dose: 50 mls/hr Documented by: Losartan Potassium (Cozaar) 25 mg PO QAM RHONDA Stop: 01/07/19 20:59 Last Admin: 12/09/18 08:58 Dose: 25 mg Documented by: Metoprolol Tartrate (Lopressor) 25 mg PO BID [facility] Stop: 01/06/19 20:59 Last Admin: 12/09/18 08:59 Dose: 25 mg Documented by: Ondansetron HCl (Zofran) 4 mg IV Q6H PRN PRN Reason: Nausea Stop: 12/30/18 22:24 Verapamil HCl (Calan Sr) 180 mg PO QAM [facility] Stop: 01/08/19 08:59 Last Admin: 12/09/18 08:58 Dose: 180 mg Documented by:
[2018-12-09] MEDS: FAMOTIDINE 20 MG TAB PO SCH (20:35)
[2018-12-10] MEDS: HydrALAZINE HCL 20 MG/ML VIAL IV SCH ×4 (00:59→11:27)
[2018-12-10] MEDS: SODIUM CHLORIDE 0.9% 500 ML IV SCH (05:48)
[2018-12-10] MEDS: ALBUT/IPRATROP 3MG/0.5MG NEB 3 ML VIAL NEB SCH ×2 (07:34→11:22)
[2018-12-10 07:53] LABS: Basophils # (auto) 0.01 K/uL (0-0.2); Basophils % (auto) 0.1 %; Eosinophils # (auto) 0.28 K/uL (0-0.5); Eosinophils % (auto) 3.3 %; Hematocrit (blood only) 35.7 % (37-47); Hemoglobin 11.5 g/dL (12.0-16.0); Immature Granulocytes # (auto) 0.03 K/uL (0.00-0.02); Immature Granulocytes % (auto) 0.4 %; Lymphocytes # (auto) 0.84 K/uL (1.2-3.4); Mean Corpuscular Hgb Conc 32.2 g/dL (32-36); Mean Corpuscular Volume 87.3 fL (80-100); Mean Platelet Volume 11.4 fL (7.4-10.4); Monocytes # (auto) 1.25 K/uL (0.11-0.59); Monocytes % (auto) 14.8 %; Neutrophils # (auto) 6.01 K/uL (1.4-6.5); Neutrophils % (auto) 71.4 %; Platelet Count 235 K/uL (130-400); RDW Coefficient of Variation 18.8 % (11.5-14.5); RDW Standard Deviation 59.7 fL (36.4-46.3); Red Blood Count 4.09 M/uL (4.2-5.4); White Blood Count 8.42 K/uL (4.8-10.8)
[2018-12-10] MEDS: FAMOTIDINE 20 MG TAB PO SCH (07:56)
[2018-12-10] MEDS: LOSARTAN POTASSIUM 25 MG TAB PO SCH (07:56)
[2018-12-10] MEDS: APIXABAN 2.5 MG TAB PO SCH (07:56)
[2018-12-10] MEDS: METOPROLOL TARTRATE 25 MG TAB PO SCH (07:56)
[2018-12-10] MEDS: VERAPAMIL HCL 180 MG TABCR PO SCH (07:56)
[2018-12-10 08:10] LABS: BUN Creatinine Ratio 14.9 (10-20); Calcium 10.6 mg/dl (8.5-10.1); Est GFR (African American) 39.9; Est GFR (Non-African American) 34.4
--- NOTE | 2018-12-10 09:07 | Discharge Summary ---
Date of Service December 10, 2018 Admission HPI Per Admitting Provider The patient is an 88-year-old female, with a past medical history significant for left frontal MCA infarct found during admission from 10/19-10/20/18, during which her main symptoms were that of word salad. Her reports that she was able to carry on a conversation with him yesterday, however, today, the day of admission, she became more confused, and per the granddaughter was not recognizing people. She was not able to take much of her medications today due to vomiting, but did take her Eliquis earlier in the day. She has not had any recent travels or sick exposures. Per the ED, they report that the patient complained of pain above her left thigh, but this was not relayed to me by the patient. Admission Exam Per Admitting Provider The patient is lethargic and restless, normocephalic and atraumatic, in bed and otherwise in no acute distress. HEENT--PERRL, mucous membranes and oropharynx dry. Neck--supple. No JVD. No bruits. Thyroid normal, trachea midline, no adenopathy. Heart--normal S1 and S2. No murmurs, rubs or gallops. Lungs--clear bilaterally, no respiratory distress, no accessory muscle use. Abdomen--normal bowel sounds and soft. Nontender. Nondistended. Extremities--no cyanosis or clubbing. No edema. There are good distal pulses b/l. Dermatologic--normal skin turgor, normal color, no abnormal lymph nodes, no rash. Neurologic--cranial nerves II through XII grossly intact. Rheumatologic--moves all extremities equally well. Psychiatric--lethargic Principal Diagnosis Hypertensive Urgency Altered mental Status Discharge Exam General: Alert, attempting to respond to questions. No acute distress HEENT: NC/AT Chest: Nontender to palpation. CV: Irregularly irregular rate Resp: Breath sounds clear with some scattered wheezes on back. Abdomen: Soft, nontender. No guarding. Extremities: No edema appreciated in lower extremities bilaterally. Discharge Data Allergies Allergy/AdvReac Type Severity Reaction Status Date / Time aspirin Allergy Unknown Verified 11/30/18 18:59 Penicillins Allergy Unknown Verified 11/30/18 18:59 Consultations 11/30/18 19:54 ED Decision to Admit Stat 12/01/18 10:53 Consult Neurology Routine Ordered Studies 11/30/18 18:23 CT head/brain wo con Stat 11/30/18 18:25 CT angio head w con Stat CT angio neck with con Stat 11/30/18 18:46 CT abd pelvis IV con only Stat 11/30/18 20:31 MR brain wo con Stat Hospital Course (1) Acute encephalopathy: Ms. Lozada is a 88yo female with a PMHx significant for recent L frontal MCA stroke who presented with a 1 day history of repeated bouts of emesis, fluctuating mental status and was found to be in hypertensive urgency with a ? UTI on admission on November 30, 2018. Also has Hx of CHF, PE with pulm infarct, atrial fibrillation, hiatal hernia and asthma and allergies. Pt discharged on December 10 to inpatient rehab at [facility]. SUMMARY INSTRUCTIONS -Continue 3 blood pressure medications for HTN urgency/emergency: Lopressor 25mg PO BID, Losartan 25mg PO qAM, Verapamil Hcl XR 180mg PO qAM. Target normal BP values as no concern for recent stroke. -Continue inhalers to help with breathing: Home ProAir and symbicort. Continue Albuterol-ipratropium (Duoneb) 3ml Neb qid (scheduled). Start Spiriva. -Continue home anticoagulation for atrial fibrillation: Eliquis 2.5mg BID -Continue aspiration precautions as described below. -Continue to monitor Calcium levels due to primary hyperparathyroidism. Discontinue calcium supplementation. -Home amitryptiline discontinued while hospitalized. Can consider restart if problems sleeping or signs of depression. Acute encephalopathy -Pt was treated for altered mental status likely related to high blood pressures given her history of migraines and stroke. There might also have been a component of delirium with a waxing and waning mental status that often happens with hospitalized patients. -There was no indication that this was related to another stroke. -Extensive imaging of head (Head CT & CTA, Neck CTA, Brain MRI) did NOT suggest an acute stroke. -EEG done by neurology suggested encephalopathy -Please continue with blood pressure meds as directed. Pt was discharged with 3 of them: verapamil, metoprolol and losartan. This will help keep blood pressures under control. -Target normal BP values as no concern for recent stroke. -Home amitryptiline held while hospitalized. Can consider restart if pt symptomatic in terms of insomnia, depression. -Pt's mental status much improved on discharge. Can speak though somewhat incomprehensible at times and follow directions. -Reorient as needed. Hypertensive urgency -Please continue with blood pressure meds as directed. Pt was discharged with 3 of them: verapamil, metoprolol and losartan. -This will help keep blood pressures under control. -Upon discharge, BPs well controlled, certainly with systolics less than 180. Atrial Fibrillation -pt historically on Eliquis 2.5mg BID at home. -Received IV heparin before switching to home Eliquis dosing once mental status improved. -Pt rate controlled upon discharge. -Continue Eliquis at home dose. Aspiration Risk -Pt evaluated by speech therapy. Their discharge instructions and aspiration precautions listed below. -Discharge Instructions include: soft bite sized finger foods, aspiration precautions, speech/language therapy once mental status improves and agitation decreases. -Aspiration precautions as follows: Alternate solids/liquids, supervise meals, meals while fully alert and upright, oral hygiene, single bites/small sips, slow rate, NO straws, meds in carrier. Hypoxia: -Upon discharge, pt saturating well on room air. -Continue Duonebs and Spiriva inhalers. -Continue home symbicort and Proair. Hypercalcemia -Pt with increased PTH and Calcium of 10.6 upon discharge. -Indicates a primary hyperparathyroidism. -Asymptomatic on discharge -Discontinue Calcium supplementation. -Continue to monitor. Recommend BMP 2-3x a week to follow and determine whether treatment needed. Acute on Chronic renal injury -Pt with hx of CKD stage 4 -Pt's creatinine much improved at discharge -Lower than baseline at 1.36 on discharge -Previous baseline of 1.8-2.0 RESOLVED ISSUES Vomiting/Dehydration--RESOLVED -Likely due to viral illness/prodrome of migraines. Abnormal UA-RESOLVED -Urine Cx - final NO GROWTH. -Rocephin D/C 12/04 Hypokalemia--RESOLVED -opted to replenish orally since tolerating fluids -KCl 40meq ordered for value of 3.2 today. - Mag level was ordered and was normal. Hypernatremia--RESOLVED - Today 144, previous two days values were at 148. - suspect cause of extra-renal GI loss from vomiting added to insensible loss - treatment is to restore access to H2O which now tolerating full liquid diet, expect to correct Total Time Total Time Spent Total Time Spent (In Minutes): <30 Discharge Plan Discharge Items Patient Disposition: Transfer Inpatient Rehab Fac Reason For Visit: ALTERED MENTAL STATE, RECENT CVA, DEHYDRATION Discharge Diagnosis: Hypertensive urgency Altered Mental Status Discharge Goals: Decrease discomfort and Improve function Activity: Per 'Additional Instructions' section Non-emergency contact: Primary Care Provider Call non-emergency contact if: your symptoms worsen Follow-up/Referrals: Chuck Byrne MD [Primary Care Provider] - 12/09/18 3:30 pm (Please follow up with Dr. Byrne on December 09 at 3:30pm at the [place] office (They did not have an available appointment at [place] until the following week) If you are unable to keep this appointment, please call office at [phone] to change.) Diet: Heart Healthy Diet Texture: Dental soft (bite-sized) Diet Comment: Soft bite sized finger foods, aspiration precautions Addtl Provider Instructions: SUMMARY INSTRUCTIONS -Continue 3 blood pressure medications for HTN urgency/emergency: Lopressor 25mg PO BID, Losartan 25mg PO qAM, Verapamil Hcl XR 180mg PO qAM. Target normal BP values as no concern for recent stroke. -Continue inhalers to help with breathing: Home ProAir and symbicort. Continue Albuterol-ipratropium (Duoneb) 3ml Neb qid (prn sob/wheeze -- computer med list does have this listed as scheduled - it would not allow me to change it to prn). -Continue home anticoagulation for atrial fibrillation: Eliquis 2.5mg BID -Continue aspiration precautions as described below. -Continue to monitor Calcium levels due to primary hyperparathyroidism. Discontinue calcium supplementation. -Home amitryptiline discontinued while hospitalized. Can consider restart if problems sleeping or signs of depression. Acute encephalopathy -Pt was treated for altered mental status likely related to high blood pressures given her history of migraines and stroke. There might also have been a component of delirium with a waxing and waning mental status that often happens with hospitalized patients. -There was no indication that this was related to another stroke. -Extensive imaging of head (Head CT & CTA, Neck CTA, Brain MRI) did NOT suggest an acute stroke. -EEG done by neurology suggested encephalopathy -Please continue with blood pressure meds as directed. Pt was discharged with 3 of them: verapamil, metoprolol and losartan. This will help keep blood pressures under control. -Target normal BP values as no concern for recent stroke. -Home amitryptiline held while hospitalized. Can consider restart if pt symptomatic in terms of insomnia, depression. -Pt's mental status much improved on discharge. Can speak though somewhat incomprehensible at times and follow directions. -Reorient as needed. Hypertensive urgency -Please continue with blood pressure meds as directed. Pt was discharged with 3 of them: verapamil, metoprolol and losartan. -This will help keep blood pressures under control. -Upon discharge, BPs well controlled, certainly with systolics less than 180. Atrial Fibrillation -pt historically on Eliquis 2.5mg BID at home. -Received IV heparin before switching to home Eliquis dosing once mental status improved. -Pt rate controlled upon discharge. -Continue Eliquis at home dose. Aspiration Risk -Pt evaluated by speech therapy. Their discharge instructions and aspiration precautions listed below. -Discharge Instructions include: soft bite sized finger foods, aspiration precautions, speech/language therapy once mental status improves and agitation decreases. -Aspiration precautions as follows: Alternate solids/liquids, supervise meals, meals while fully alert and upright, oral hygiene, single bites/small sips, slow rate, NO straws, meds in carrier. Hypoxia: -Upon discharge, pt saturating well on room air. -Continue Duonebs and Spiriva inhalers. -Continue home symbicort and Proair. Hypercalcemia -Pt with increased PTH and Calcium of 10.6 upon discharge. -Indicates a primary hyperparathyroidism. -Asymptomatic on discharge -Discontinue Calcium supplementation. -Continue to monitor. Recommend BMP 2-3x a week to follow and determine whether treatment needed. Acute on Chronic renal injury -Pt with hx of CKD stage 4 -Pt's creatinine much improved at discharge -Lower than baseline at 1.36 on discharge -Previous baseline of 1.8-2.0 -BMP to be followed as above Prescriptions: New ipratropium-albuterol 0.5 mg-3 mg(2.5 mg base)/3 mL Solution For Nebulization 3 ml NEB QIDR Qty: 15 RF: 0 verapamil 180 mg Tablet Extended Release 180 mg PO QAM 7 Days Qty: 7 RF: 0 losartan 25 mg Tablet 25 mg PO QAM 7 Days Qty: 7 RF: 0 metoprolol tartrate 25 mg Tablet 25 mg PO BID 7 Days Qty: 14 RF: 0 Eliquis 2.5 mg Tablet 2.5 mg PO BID 7 Days Qty: 14 RF: 0 Continued pantoprazole 40 mg tablet,delayed release (DR/EC) 40 mg PO DAILY RF: 0 albuterol sulfate [ProAir HFA] 90 mcg/actuation Hfa Aerosol Inhaler 2 puff INHALATION Q6H PRN (Reason: Shortness Of Breath) RF: 0 budesonide-formoterol 160-4.5 mcg/actuation HFA aerosol inhaler 2 puff Inhalation BID RF: 0 Eliquis 2.5 mg tablet 2.5 mg PO Q12 RF: 0 atorvastatin 40 mg Tablet PO DAILY RF: 0 Excedrin Tension Headache 500-65 mg Tablet 2 tab PO AMPM RF: 0 Discontinued calcium carbonate [Calcium 500] 500 mg calcium (1,250 mg) Tablet 500 mg PO DAILY RF: 0 amitriptyline 10 mg Tablet 10 mg PO HS RF: 0 Stand-Alone Forms: [facility] Discharge Orders: Discharge Order (Routine); Ordered 12/10/18 Ordered By: Radha Riley Skilled Items Patient informed of condition?: Yes DNR: No Discharge Level of Care: Acute rehab Communicable Disease: No Discharge Prognosis: Stable Admission Data Admit Date/Time: 11/30/18 20:48 Attending Provider: Richard Ruiz Admit Provider: Roscoe Solitario Primary Care Provider: Chuck Byrne Other Providers: Roscoe Solitario ; Don Quinn III ; Alison Coburn Service: Telemetry Other Interventions: Discharge Summary Assessment (RN) Last Done: 12/10/18 11:22 DC Date/Time DO NOT enter until pt leaves facility: 12/10/18 14:50 Supervising Physician Co-Signing Physician Notes I personally examined the patient and verified all adames points of history and exam, discussed case, and agree with decision making with Dr Riley. doing even better. has a rehab bed today. no new complaints, eating lunch, harassing her about taking some of her chicken! Vitals noted, in general she is in no distress. HEENT normocephalic atraumatic mucous membranes are moist. Breathing is unlabored no accessory muscle use. Skin shows no rashes no pallor or icterus. Neuro shows no focal deficits. Hypertensive crisis/hypertensive encephalopathyappears to be the precipitating event of this admission. Clinically she is improving. See below as far as hypertension. Fortunately imaging of her brain does not show any type of a hypertensive stroke, and she is showing ongoing improvement Uncontrolled hypertensioncontinue current medications. continue to follow, continue periodic BMP. now overall showing fairly good control. Altered mental statusappears to have initially been due to the hypertensive encephalopathy, now appears to have faded more towards a hospital-acquired delirium type picture. improving nicely hypercalcemia - w high PTH - appearing to most likely be primary hyperparathyroidism. outpt f/u chronic bronchitis - discussed initiation of anticholinergic, family thought at some point there may have been a contraindication - will have PCP f/u to consider. 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
== END 2018-12-10 14:50 | DRG 78 ==
LOC: ED 18:00 → SUATTDRO 20:48 → 2S 20:48